=== PATIENT | female | born 1960 | race Caucasian/White ===

== ENCOUNTER 2019-12-03 21:44 | Emergency (ER) | payer MEDICARE, MEDICAID ==
[2019-12-03] MEDS ORDERED: Sodium Chloride 0.9% 1,000 ML IV ONE (21:48)
[2019-12-03] MEDS ORDERED: Acetaminophen 500 MG Tab PO ONE (22:23)
--- NOTE | 2019-12-03 22:37 | CT ---
HISTORY: Confusion. TECHNIQUE: Noncontrast head CT. COMPARISON: No prior. FINDINGS: There is no acute intracranial hemorrhage or acute ischemic infarct. No mass effect or midline shift. No hydrocephalus. No extra-axial collection or hematoma. No acute loss of dailey-white differentiation. Mastoid air cells are clear. Paranasal sinuses are clear. No acute skull fracture. IMPRESSION: No acute intracranial disease. Dictated by Kyle Varghese MD @ 12/03/2019 10:36:57 PM Please note that all CT scans at this facility use dose modulation, iterative reconstruction, and/or weight-based dosing when appropriate to reduce radiation dose to as low as reasonably achievable. Dictated by: Kyle Varghese MD @ 12/03/2019 22:37:01 (Electronically Signed)
[2019-12-03 22:50] LABS: BLOOD UREA NITROGEN,BUN 18 mg/dL (7.0-18.0); CARBON DIOXIDE,CO2 29.6 mmol/L (21.0-32.0); CHLORIDE,CL 101 mmol/L (98-107); GLUCOSE RANDOM 133 mg/dL (74-106); POTASSIUM,K 4.5 mmol/L (3.5-5.1); SODIUM,NA 138 mmol/L (136-145)
[2019-12-03] MEDS ORDERED: Acetaminophen 500 MG Tab ONE (23:12)
--- NOTE | 2019-12-04 00:47 | CR ---
INDICATION: Confusion, shortness of breath TECHNIQUE: Chest radiograph 1 view COMPARISON: None FINDINGS: Severe degradation of image quality noted due to body habitus. Mediastinum: The mediastinum is normal in appearance. The heart silhouette is normal in size and morphology. Lung: Mild nodular opacities are present in the right midlung zone, suspicious for bronchiolitis. No sign of pleural effusion seen. No pneumothorax is identified. Bone and Soft tissue: Unremarkable for age. IMPRESSION: 1. Mild nodular opacities are present in the right midlung zone, suspicious for bronchiolitis. Dictated by Abel Tarango MD @ 12/04/2019 12:45:41 AM Dictated by: Abel Tarango MD @ 12/04/2019 00:45:47 (Electronically Signed)
[2019-12-04] MEDS ORDERED: Doxycycline 100 MG Cap PO ONE (03:13)
--- NOTE | 2019-12-04 03:23 | EDM.PDOC ---
ED HPI GENERAL MEDICAL PROBLEM - General Chief Complaint: General Stated Complaint: EMS Time Seen by Provider: 12/03/19 21:47 Source of Information: Reports: Patient - History of Present Illness INITIAL COMMENTS - FREE TEXT/NARRATIVE: Pt with a pmh of psychiatric issues otherwise no pmh presents with generalized weakness and confusion. Pt also reports intermittent chest congestion. Pt found to be febrile on arrival. Pt arrives AOx4 with no focal weakness. - Related Data Allergies Allergy/AdvReac Type Severity Reaction Status Date / Time No Known Allergies Allergy Verified 12/03/19 21:48 Home Meds: Home Meds ARIPiprazole [Aripiprazole] 15 mg PO BEDTIME 06/01/18 [History] Benztropine [Cogentin] 1 mg PO BEDTIME 06/01/18 [History] Desmopressin 0.1 mg PO BEDTIME 06/01/18 [History] Simvastatin 10 mg PO BEDTIME 06/01/18 [History] Vilazodone Hydrochloride [Viibryd] 40 mg PO DAILY 06/01/18 [History] buPROPion HCl [Wellbutrin Xl] 300 mg PO DAILY 06/01/18 [History] metFORMIN [Glucophage XR] 250 mg PO BIDMEALS 06/01/18 [History] Aspirin [Halfprin] 81 mg PO DAILY 04/05/19 [History] Gabapentin [Neurontin] 300 - 600 mg PO BEDTIME 04/05/19 [History] Multivitamin [Multi-Vitamin Daily] 1 tab PO DAILY 04/05/19 [History] buPROPion [buPROPion XL] 150 mg PO BEDTIME 04/05/19 [History] lamoTRIgine [Lamotrigine] 150 mg PO BID 04/05/19 [History] Acetaminophen [Tylenol Extra Strength] 1,000 mg PO Q6H PRN tablet 04/07/19 [Rx] predniSONE See Taper PO WITHBREAKFAST #12 tablet 04/08/19 [Rx] Past Medical History HEENT History: Reports: Allergic Rhinitis, Other (See Below) Other HEENT History: myopia. astigmatism Cardiovascular History: Reports: High Cholesterol Respiratory History: Reports: Sleep Apnea Other Respiratory History: CPAP @ night Gastrointestinal History: Reports: Chronic Constipation Genitourinary History: Reports: Other (See Below) Other Genitourinary History: urge incontinence. nonorganic enuresis STUDENT LOAN COUNSELOR History: Reports: None Musculoskeletal History: Reports: Back Pain, Chronic, Other (See Below) Other Musculoskeletal History: DJD. tendinitis of right shoulder. left achilles tendinitis. hip pain Neurological History: Reports: Other (See Below) Other Neuro History: memory loss Psychiatric History: Reports: Bipolar, Depression, PTSD, Other (See Below) Other Psychiatric History: Borderline Personality Disorder. Dissociative Identity Disorder. social maladjustment Endocrine/Metabolic History: Reports: Diabetes, Type II, Obesity/BMI 30+ Insulin Pump Model and Account Planner: None Hematologic History: Reports: None Immunologic History: Reports: None Oncologic (Cancer) History: Reports: None Dermatologic History: Reports: None - Infectious Disease History Infectious Disease History: Reports: None - Past Surgical History Head Surgeries/Procedures: Reports: None Social & Family History - Family History Family Medical History: Noncontributory GI: Reports: Cirrhosis Endocrine/Metabolic: Reports: Diabetes, type II - Tobacco Use Smoking Status *Q: Never Smoker - Caffeine Use Caffeine Use: Reports: None - Living Situation & Occupation Living situation: Reports: Single, Alone Occupation: Disabled ED ROS GENERAL - Review of Systems Review Of Systems: See Below Constitutional: Reports: Fever, Chills, Weakness HEENT: Reports: No Symptoms Respiratory: Denies: Shortness of Breath, Wheezing Cardiovascular: Denies: Chest Pain GI/Abdominal: Reports: No Symptoms : Reports: No Symptoms Skin: Reports: No Symptoms Neurological: Reports: Confusion. Denies: Dizziness, Headache ED EXAM, GENERAL - Physical Exam Exam: See Below Exam Limited By: No Limitations General Appearance: Alert, WD/WN, No Apparent Distress Head: Atraumatic, Normocephalic Neck: Supple, Full Range of Motion Respiratory/Chest: Lungs Clear, Normal Breath Sounds, No Accessory Muscle Use Cardiovascular: Regular Rate, Rhythm, No Murmur GI/Abdominal: Soft, Non-Tender, No Distention Neurological: Alert, Oriented, Normal Cognition, No Motor/Sensory Deficits Skin Exam: Warm, Dry, Intact Course - Vital Signs Last Recorded V/S: Last Vital Signs Temp 97.3 F 12/04/19 03:26 Pulse 98 12/04/19 03:26 Resp 18 12/04/19 03:26 BP 125/66 12/04/19 03:26 Pulse Ox 94 L 12/04/19 03:26 - Orders/Labs/Meds Orders: Active Orders 24 hr Category Date Time Status EKG 12 Lead [EKG Documentation Completion] [RC] STAT Care 12/03/19 21:52 Active CULTURE URINE [RM] Stat Lab 12/03/19 23:28 Received Labs: Laboratory Tests 12/03/19 12/03/19 12/03/19 Range/Units 22:06 22:06 23:28 WBC 7.38 (4.0-11.0) K/uL RBC 3.64 L (4.30-5.90) M/uL Hgb 11.1 L (12.0-16.0) g/dL Hct 32.4 L (36.0-46.0) % MCV 89.0 (80.0-98.0) fL MCH 30.5 (27.0-32.0) pg MCHC 34.3 (31.0-37.0) g/dL RDW Std Deviation 43.1 (28.0-62.0) fl RDW Coeff of Jason 13 (11.0-15.0) % Plt Count 98 L (150-400) K/uL MPV 9.30 (7.40-12.00) fL Add Manual Diff YES Neutrophils % (Manual) 69 (48.0-80.0) % Lymphocytes % (Manual) 20 (16.0-40.0) % Monocytes % (Manual) 11 (0.0-15.0) % Nucleated RBC % 0.0 /100WBC Absolute Seg Neuts 5.1 (1.4-5.7) Lymphocytes # (Manual) 1.5 (0.6-2.4) Monocytes # (Manual) 0.8 (0.0-0.8) Nucleated RBCs # 0 K/uL Sodium 138 (136-145) mmol/L Potassium 4.5 (3.5-5.1) mmol/L Chloride 101 (98-107) mmol/L Carbon Dioxide 29.6 (21.0-32.0) mmol/L BUN 18 (7.0-18.0) mg/dL Creatinine 1.4 H (0.6-1.0) mg/dL Est Cr Clr Drug Dosing TNP Estimated GFR (MDRD) 38.2 ml/min Glucose 133 H (74-106) mg/dL Calcium 9.3 (8.5-10.1) mg/dL Total Bilirubin 0.6 (0.2-1.0) mg/dL AST 39 H (15-37) IU/L ALT 47 (14-63) IU/L Alkaline Phosphatase 102 (46-116) U/L Total Protein 7.4 (6.4-8.2) g/dL Albumin 3.4 (3.4-5.0) g/dL Globulin 4.0 (2.6-4.0) g/dL Albumin/Globulin Ratio 0.9 (0.9-1.6) Urine Color YELLOW Urine Appearance CLEAR Urine pH 6.5 (5.0-8.0) Ur Specific Marston <= 1.005 (1.001-1.035) Urine Protein NEGATIVE (NEGATIVE) mg/dL Urine Glucose (UA) NEGATIVE (NEGATIVE) mg/dL Urine Ketones NEGATIVE (NEGATIVE) mg/dL Urine Occult Blood NEGATIVE (NEGATIVE) Urine Nitrite NEGATIVE (NEGATIVE) Urine Bilirubin NEGATIVE (NEGATIVE) Urine Urobilinogen 0.2 (<2.0) EU/dL Ur Leukocyte Esterase TRACE H (NEGATIVE) Urine RBC 0-1 (0-2/HPF) Urine WBC 0-2 (0-5/HPF) Ur Epithelial Cells RARE (NONE-FEW) Urine Bacteria RARE (NEGATIVE) Meds: Medications Discontinued Medications Generic Name Dose Route Start Last Admin Trade Name Gianfrancoq PRN Reason Stop Dose Admin Acetaminophen 1,000 mg 12/03/19 22:23 12/03/19 23:10 Tylenol Extra Strength PO 12/03/19 22:24 1,000 mg ONETIME ONE Administration Acetaminophen Confirm 12/03/19 23:12 12/04/19 00:29 Tylenol Extra Strength Administered 12/03/19 23:13 Not Given Dose 500 mg .ROUTE .STK-MED ONE Doxycycline Hyclate 100 mg 12/04/19 03:13 12/04/19 03:25 Vibramycin PO 12/04/19 03:14 100 mg ONETIME ONE Administration Sodium Chloride 1,000 mls @ 999 mls/hr 12/03/19 21:48 12/03/19 21:57 Normal Saline IV 12/03/19 22:48 999 mls/hr .Bolus ONE Administration - Re-Assessments/Exams Free Text/Narrative Re-Assessment/Exam: 12/04/19 03:19 Pt presents febrile after an episode of generalized weakness and confusion at home. No signs or symptoms or stroke. Source of fever is pulmonary on work up. Remainder of work up unremarkable. Pt feels much improved with ED therapy and is comfortable with discharge. Doxycycline prescribed for bronchitis. Strict return precautions discussed should symptoms worsen or any concerns arise. 12/04/19 09:17 Departure - Departure Time of Disposition: 03:22 Disposition: Home, Self-Care 01 Condition: Good Clinical Impression: Fever, Bronchitis - Discharge Information *PRESCRIPTION DRUG MONITORING PROGRAM REVIEWED*: Not Applicable *COPY OF PRESCRIPTION DRUG MONITORING REPORT IN PATIENT MAGI: Not Applicable Instructions: Upper Respiratory Infection, Adult, [id number], Fever, Adult, [id number] Referrals: PCP,Not In Area [Primary Care Provider] - Forms: ED Department Discharge Additional Instructions: The following information is given to patients seen in the emergency department who are being discharged to home. This information is to outline your options for follow-up care. We provide all patients seen in our emergency department with a follow-up referral. The need for follow-up, as well as the timing and circumstances, are variable depending upon the specifics of your emergency department visit. If you don't have a primary care physician on staff, we will provide you with a referral. We always advise you to contact your personal physician following an emergency department visit to inform them of the circumstance of the visit and for follow-up with them and/or the need for any referrals to a consulting specialist. The emergency department will also refer you to a specialist when appropriate. This referral assures that you have the opportunity for follow-up care with a specialist. All of these measure are taken in an effort to provide you with optimal care, which includes your follow-up. Under all circumstances we always encourage you to contact your private physician who remains a resource for coordinating your care. When calling for follow-up care, please make the office aware that this follow-up is from your recent emergency room visit. If for any reason you are refused follow-up, please contact the [facility] Emergency Department at and asked to speak to the emergency department charge nurse. [facility] [address] [place] [id number] [place] [address] Sepsis Event Note - Evaluation Sepsis Screening Result: No Definite Risk - Focused Exam Vital Signs: Vital Signs Temp Temp Temp Pulse Resp BP Pulse Ox 12/04/19 03:26 97.3 F 98 18 125/66 94 L 12/04/19 02:00 97.6 F 93 18 117/57 L 95 12/04/19 00:38 98.6 F 98.6 F 102 H 104/57 L 93 L 12/03/19 23:10 102 F H 12/03/19 21:45 102.7 F H 108 H 20 133/66 93 L Date Exam was Performed: 12/04/19 Time Exam was Performed: 09:13 - My Orders Last 24 Hours: My Active Orders 12/03/19 21:52 EKG 12 Lead [EKG Documentation Completion] [RC] STAT 12/03/19 23:28 CULTURE URINE [RM] Stat - Assessment/Plan Last 24 Hours: My Active Orders 12/03/19 21:52 EKG 12 Lead [EKG Documentation Completion] [RC] STAT 12/03/19 23:28 CULTURE URINE [RM] Stat
== END 2019-12-04 03:55 | disposition home or self-care (01) ==
LOC: MW.ED 21:44
DX: J40 Bronchitis, not specified as acute or chronic (principal); G47.30 Sleep apnea, unspecified; F31.9 Bipolar disorder, unspecified; E78.00 Pure hypercholesterolemia, unspecified; E11.9 Type 2 diabetes mellitus without complications; E66.9 Obesity, unspecified; Z79.899 Other long term (current) drug therapy; Z79.84 Long term (current) use of oral hypoglycemic drugs; Z79.82 Long term (current) use of aspirin
CPT/HCPCS: 36415; 70450; 71045; 80053; 81001; 85025; 87086; 87804; 93005; 96360; 99285; A9270; J7030; 99283

== ENCOUNTER 2020-08-09 12:23 | Observation (INO) | payer MEDICARE, MEDICAID, OTHER ==
[2020-08-09] MEDS ORDERED: Sodium Chloride 0.9% 2.5 ML Syringe FLUSH PRN (12:58)
[2020-08-09] MEDS ORDERED: Sodium Chloride 0.9% 10 ML Syringe FLUSH PRN (12:58)
--- NOTE | 2020-08-09 13:05 | EDM.PDOC ---
ED HPI GENERAL MEDICAL PROBLEM - General Chief Complaint: Cardiovascular Problem Stated Complaint: NUMBNESS IN LEGS AND BACK Time Seen by Provider: 08/09/20 12:55 Source of Information: Reports: Patient, Old Records - History of Present Illness INITIAL COMMENTS - FREE TEXT/NARRATIVE: There is a very pleasant 60-year-old female with a past medical history of bipolar disorder on lithium, prior suicide attempts, diabetes mellitus, TONIE, hyperlipidemia, borderline personality disorder, panic disorder presenting with syncope and difficulty speaking. She arrives to the emergency department her sister. Her sister insisted that she come to get evaluated because of reports of syncopal episodes last night. Patient cannot remember clearly, but believes that she had a syncopal episode last night at home while trying to get up off the toilet. She cannot remember if she hit her head or not. She states that after experiencing syncope, she laid on the floor all night where she slept. This morning, she was able to get herself up and drive to a convenience store. Her sister was unable to reach her by phone. A family friend brought her to the emergency department where she met her sister. Here in the emergency department, the patient has no complaints at this point. She does appear to have some mild word finding difficulty and some tremors. The sister states that these are new. It is not entirely clear when the word finding difficulty and the tremor started, the patient thinks that he may have started last night but she is not entirely certain. There is no prior history of CVA, TIA, or acute coronary syndrome. There is no reported history of any anticoagulant or antiplatelet medication usage. No history of thyroid disease. No recent change in lithium dosage. ROS: A 10-point review of systems was negative, except as noted in the HPI (or in the ROS section of this note). Past medical history: Reviewed, no additional pertinent history. Surgical history: Reviewed in system, no additional pertinent history. Social history: Reviewed in system, no additional pertinent history. Family history: Reviewed in system, no additional pertinent history. PHYSICAL EXAM Vital signs reviewed. Nursing notes reviewed. Constitutional: Awake, alert, non-distressed. Head: Normocephalic, atraumatic. Eyes: EOMI, conjunctiva normal, no discharge, no scleral icterus. Pupils 3 mm bilaterally. Ears, Nose, Throat: External ears and nose normal, moist oral mucosa. Cardiovascular: 2+ radial pulses bilaterally, capillary refill less than 2 seconds. Pulmonary: normal work of breathing, no accessory muscle use. Abdomen/GI: Soft, nontender, nondistended, no guarding or rigidity, no masses. Musculoskeletal: No deformities. Integumentary: Appropriate color for ethnicity, warm, dry, no pallor or jaundice, no rash. Neurologic: Awake, alert, and oriented x3. Cranial nerves II through XII intact. No facial droop or dysarthria. No temporal artery tenderness. Supple neck with normal range of motion. No pronator drift. Normal [id number] and [id number]. No dysdiadochokinesia. 5/5 strength in all extremities. Sensation intact to light touch x4. Patient does have a mild resting tremor that is worse with intentional movements and also seems to have some mild word finding difficulty. Psychiatric: Appropriate mood and affect, normal thought process. - Related Data Allergies Allergy/AdvReac Type Severity Reaction Status Date / Time No Known Allergies Allergy Verified 08/09/20 12:39 Home Meds: Home Meds Baclofen 1 tab PO TID PRN 08/09/20 [History] DULoxetine [Cymbalta] 120 mg PO BEDTIME 08/09/20 [History] Doxepin [SINEquan] 20 mg PO BEDTIME 08/09/20 [History] Gabapentin [Neurontin] 1 tab PO DAILY 08/09/20 [History] Gabapentin [Neurontin] 2 cap PO BEDTIME 08/09/20 [History] [place] Carbonate 3 cap PO BEDTIME 08/09/20 [History] Simvastatin 1 tab PO BEDTIME 08/09/20 [History] Topiramate 1 tab PO BEDTIME 08/09/20 [History] metFORMIN [Glucophage XR] 250 mg PO DAILY 08/09/20 [History] Past Medical History HEENT History: Reports: Allergic Rhinitis, Other (See Below) Other HEENT History: myopia. astigmatism Cardiovascular History: Reports: High Cholesterol Respiratory History: Reports: Sleep Apnea Other Respiratory History: CPAP @ night Gastrointestinal History: Reports: Chronic Constipation Genitourinary History: Reports: Other (See Below) Other Genitourinary History: urge incontinence. nonorganic enuresis SET UP OPERATOR TOOL History: Reports: None Musculoskeletal History: Reports: Back Pain, Chronic, Other (See Below) Other Musculoskeletal History: DJD. tendinitis of right shoulder. left achilles tendinitis. hip pain Neurological History: Reports: Other (See Below) Other Neuro History: memory loss Psychiatric History: Reports: Bipolar, Depression, PTSD, Other (See Below) Other Psychiatric History: Borderline Personality Disorder. Dissociative Identity Disorder. social maladjustment Endocrine/Metabolic History: Reports: Diabetes, Type II, Obesity/BMI 30+ Insulin Pump Model and Insurance And Benefits Clerk: None Hematologic History: Reports: None Immunologic History: Reports: None Oncologic (Cancer) History: Reports: None Dermatologic History: Reports: None - Infectious Disease History Infectious Disease History: Reports: None - Past Surgical History Head Surgeries/Procedures: Reports: None Social & Family History - Family History Family Medical History: Noncontributory GI: Reports: Cirrhosis Endocrine/Metabolic: Reports: Diabetes, type II - Caffeine Use Caffeine Use: Reports: None - Living Situation & Occupation Living situation: Reports: Single, Alone Occupation: Disabled ED ROS GENERAL - Review of Systems Review Of Systems: See Below ED EXAM, NEURO - Physical Exam Exam: See Below #1 Interpretation EKG Interpretation Comments: 12-Lead ECG Interpretation Acquired: 1:05 PM Rhythm: Sinus rhythm Rate: 65 bpm [place]: Normal Intervals: Normal Ectopy: None RV Strain: No obvious RV strain pattern. ST Segments/T-Waves: No notable changes Acute Ischemic Changes: None apparent Interpretation: No STEMI Course - Vital Signs Text/Narrative:: 60-year-old female with syncope along with new mild word finding difficulty and new tremor. Patient hemodynamically stable, afebrile, well-appearing, looks nontoxic. Differential diagnosis includes but is not limited to: CVA, TIA, cervical artery stenosis, lithium toxicity, electrolyte disturbance, thyroid disease, less likely seizure, intracranial hemorrhage, VESSEL SCRAPPER HELPER tumor malignancy, less likely meningitis or encephalitis, demyelinating disease, and many others. 1:08 PM: Patient has no focal neurologic deficits or lateralizing signs to suggest a stroke. Onset of her symptoms is unknown so she is not a stroke code as she would not receive systemic thrombolysis and has no symptoms to suggest a large vessel occlusion. We will plan for IV access, labs, EKG, angiographic imaging of the head and neck. 2:48 PM: Labs show normal cell lines on CBC, normal INR, normal electrolytes. Creatinine mildly elevated at 1.1. Normal CK. Normal troponin. Normal LFTs and TSH. Awaiting imaging. 3:15 PM: CT imaging appears to show fractures of bridging osteophytes in the cervical spine. We will place the patient in a cervical collar while we are awaiting radiology reads. She is resting comfortably and appears to be speaking more easily. 3:25 PM: Preliminary reads of CTA head and neck are negative. Noncontrast head CT is normal. CT read of cervical spine was read as normal but did not comment on possible fractures of osteophytes of C5-7. Will contact [facility] to discuss with radiologist. 3:28 PM: I spoke with the reading radiologist Dr. Manjeet Martini who believes that this pattern represents old fractures of bridging osteophytes or desmophytes and does not represent any acute injury. Ordered full-dose aspirin. Hospitalist paged. Cervical spine cleared. 4:16 PM: Final reads of the CT angiogram studies of the head and neck showed no acute findings, did note a heterogenous multinodular right lobe of the thyroid gland with areas of calcification but no definite evidence of a thyroid nodule. Given transient word finding difficulties and myoclonic jerks/tremor, patient will need to be admitted to the hospital out of concern for possible TIA. 1 L lactated Ringer's hung. I spoke in person with Dr. Tio Martinez who agrees to admit to observation. Last Recorded V/S: Last Vital Signs Temp 36.2 C 08/09/20 17:23 Pulse 66 08/09/20 17:23 Resp 18 08/09/20 17:23 BP 141/76 H 08/09/20 17:23 Pulse Ox 96 08/09/20 17:23 - Orders/Labs/Meds Orders: Active Orders 24 hr Category Date Time Status Cardiac Monitoring [RC] . DIRECTED Care 08/09/20 12:58 Active EKG Documentation Completion [RC] STAT Care 08/09/20 12:58 Active Pulse Oximetry [RC] ASDIRECTED Care 08/09/20 12:58 Active LITHIUM [REF] Stat Lab 08/09/20 13:22 Received Sodium Chloride 0.9% [Saline Flush] Med 08/09/20 12:58 Active 10 ml FLUSH ASDIRECTED PRN Sodium Chloride 0.9% [Saline Flush] Med 08/09/20 12:58 Active 2.5 ml FLUSH ASDIRECTED PRN Saline Lock Insert [OM.PC] Stat Oth 08/09/20 12:58 Ordered Medication Orders Baclofen (Lioresal) 20 mg PO TID PRN PRN Reason: SPASMS Dextrose/Water (Dextrose 50% In Water) 50 ml IV ASDIRECTED PRN PRN Reason: Hypoglycemia Doxepin HCl (Sinequan) 20 mg PO BEDTIME [facility] Duloxetine HCl (Cymbalta) 120 mg PO BEDTIME [facility] Enoxaparin Sodium (Lovenox) 40 mg SUBCUT Q24H [facility] Gabapentin (Neurontin) 600 mg PO BEDTIME [facility] Glucagon (Glucagen) 1 mg IM ASDIRECTED PRN PRN Reason: Hypoglycemia Insulin Aspart (Novolog) 0 unit SUBCUT TIDAC [facility]; Protocol [place] Carbonate (Eskalith) 300 mg PO BEDTIME [facility] Simvastatin (Zocor) 10 mg PO BEDTIME [facility] Sodium Chloride (Saline Flush) 10 ml FLUSH ASDIRECTED PRN PRN Reason: Keep Vein Open Last Admin: 08/09/20 13:48 Dose: 10 ml Documented by: DAVID Sodium Chloride (Saline Flush) 2.5 ml FLUSH ASDIRECTED PRN PRN Reason: Keep Vein Open Last Admin: 08/09/20 13:48 Dose: 2.5 ml Documented by: IVERKACornell Topiramate (Topamax) 50 mg PO BEDTIME [facility] Labs: Laboratory Tests 08/09/20 08/09/20 08/09/20 Range/Units 13:22 13:22 13:22 WBC 7.91 (4.0-11.0) K/uL RBC 4.70 (4.30-5.90) M/uL Hgb 14.1 (12.0-16.0) g/dL Hct 42.0 (36.0-46.0) % MCV 89.4 (80.0-98.0) fL MCH 30.0 (27.0-32.0) pg MCHC 33.6 (31.0-37.0) g/dL RDW Std Deviation 43.4 (28.0-62.0) fl RDW Coeff of Jason 13 (11.0-15.0) % Plt Count 253 (150-400) K/uL MPV 10.00 (7.40-12.00) fL Neut % (Auto) 66.4 (48.0-80.0) % Lymph % (Auto) 23.3 (16.0-40.0) % [place] % (Auto) 8.6 (0.0-15.0) % Eos % (Auto) 1.3 (0.0-7.0) % Baso % (Auto) 0.4 (0.0-1.5) % Neut # (Auto) 5.3 (1.4-5.7) K/uL Lymph # (Auto) 1.8 (0.6-2.4) K/uL [place] # (Auto) 0.7 (0.0-0.8) K/uL Eos # (Auto) 0.1 (0.0-0.7) K/uL Baso # (Auto) 0.0 (0.0-0.1) K/uL Nucleated RBC % 0.0 /100WBC Nucleated RBCs # 0 K/uL INR 0.98 Sodium 141 (136-145) mmol/L Potassium 3.9 (3.5-5.1) mmol/L Chloride 109 H (98-107) mmol/L Carbon Dioxide 22.0 (21.0-32.0) mmol/L BUN 9 (7.0-18.0) mg/dL Creatinine 1.1 H (0.6-1.0) mg/dL Est Cr Clr Drug Dosing 53.49 mL/min Estimated GFR (MDRD) 50.3 ml/min Glucose 112 H (74-106) mg/dL Calcium 10.2 H (8.5-10.1) mg/dL Total Bilirubin 0.6 (0.2-1.0) mg/dL AST 15 (15-37) IU/L ALT 19 (14-63) IU/L Alkaline Phosphatase 86 (46-116) U/L Creatine Kinase 68 (26-308) U/L Troponin I < 0.050 (0.000-0.056) ng/mL Total Protein 7.4 (6.4-8.2) g/dL Albumin 4.2 (3.4-5.0) g/dL Globulin 3.2 (2.6-4.0) g/dL Albumin/Globulin Ratio 1.3 (0.9-1.6) TSH 3rd Generation 0.60 (0.36-3.74) uIU/mL SARS-CoV-2 RNA (RAYMUNDO) (NEGATIVE) 08/09/20 Range/Units 15:13 WBC (4.0-11.0) K/uL RBC (4.30-5.90) M/uL Hgb (12.0-16.0) g/dL Hct (36.0-46.0) % MCV (80.0-98.0) fL MCH (27.0-32.0) pg MCHC (31.0-37.0) g/dL RDW Std Deviation (28.0-62.0) fl RDW Coeff of Jason (11.0-15.0) % Plt Count (150-400) K/uL MPV (7.40-12.00) fL Neut % (Auto) (48.0-80.0) % Lymph % (Auto) (16.0-40.0) % [place] % (Auto) (0.0-15.0) % Eos % (Auto) (0.0-7.0) % Baso % (Auto) (0.0-1.5) % Neut # (Auto) (1.4-5.7) K/uL Lymph # (Auto) (0.6-2.4) K/uL [place] # (Auto) (0.0-0.8) K/uL Eos # (Auto) (0.0-0.7) K/uL Baso # (Auto) (0.0-0.1) K/uL Nucleated RBC % /100WBC Nucleated RBCs # K/uL INR Sodium (136-145) mmol/L Potassium (3.5-5.1) mmol/L Chloride (98-107) mmol/L Carbon Dioxide (21.0-32.0) mmol/L BUN (7.0-18.0) mg/dL Creatinine (0.6-1.0) mg/dL Est Cr Clr Drug Dosing mL/min Estimated GFR (MDRD) ml/min Glucose (74-106) mg/dL Calcium (8.5-10.1) mg/dL Total Bilirubin (0.2-1.0) mg/dL AST (15-37) IU/L ALT (14-63) IU/L Alkaline Phosphatase (46-116) U/L Creatine Kinase (26-308) U/L Troponin I (0.000-0.056) ng/mL Total Protein (6.4-8.2) g/dL Albumin (3.4-5.0) g/dL Globulin (2.6-4.0) g/dL Albumin/Globulin Ratio (0.9-1.6) TSH 3rd Generation (0.36-3.74) uIU/mL SARS-CoV-2 RNA (RAYMUNDO) NEGATIVE (NEGATIVE) Meds: Medications Generic Name Dose Route Start Last Admin Trade Name Freq PRN Reason Stop Dose Admin Baclofen 20 mg 08/09/20 22:00 Lioresal PO TID PRN SPASMS Dextrose/Water 50 ml 08/09/20 17:26 Dextrose 50% In Water IV ASDIRECTED PRN Hypoglycemia Doxepin HCl 20 mg 08/09/20 21:00 Sinequan PO BEDTIME [facility] Duloxetine HCl 120 mg 08/09/20 21:00 Cymbalta PO BEDTIME [facility] Enoxaparin Sodium 40 mg 08/09/20 17:00 Lovenox SUBCUT Q24H [facility] Gabapentin 600 mg 08/10/20 21:00 Neurontin PO BEDTIME [facility] Glucagon 1 mg 08/09/20 17:26 Glucagen IM ASDIRECTED PRN Hypoglycemia Insulin Aspart 0 unit 08/10/20 07:30 Novolog SUBCUT TIDAC [facility] Protocol [place] Carbonate 300 mg 08/09/20 21:00 Eskalith PO BEDTIME [facility] Simvastatin 10 mg 08/09/20 21:00 Zocor PO BEDTIME [facility] Sodium Chloride 10 ml 08/09/20 12:58 08/09/20 13:48 Saline Flush FLUSH 10 ml ASDIRECTED PRN Administration Keep Vein Open Sodium Chloride 2.5 ml 08/09/20 12:58 08/09/20 13:48 Saline Flush FLUSH 2.5 ml ASDIRECTED PRN Administration Keep Vein Open Topiramate 50 mg 08/09/20 21:00 Topamax PO BEDTIME [facility] Discontinued Medications Generic Name Dose Route Start Last Admin Trade Name Freq PRN Reason Stop Dose Admin Aspirin 324 mg 08/09/20 15:29 08/09/20 16:00 Aspirin PO 08/09/20 15:30 324 mg ONETIME ONE Administration Lactated Ringer's 1,000 mls @ 999 mls/hr 08/09/20 15:37 08/09/20 16:00 Ringers, Lactated IV 08/09/20 16:37 999 mls/hr .BOLUS ONE Administration Non-Formulary Medication 1 tab 08/09/20 17:22 Baclofen [Baclofen] PO TID PRN Pain Departure - Departure Time of Disposition: 16:16 Disposition: Refer to Observation Condition: Good Clinical Impression: Syncope and collapse - Discharge Information Sepsis Event Note (ED) - Evaluation Sepsis Screening Result: No Definite Risk - Focused Exam Vital Signs: Vital Signs Temp Pulse Resp BP Pulse Ox 08/09/20 14:46 59 L 18 114/59 L 95 08/09/20 12:31 35.2 C L 83 18 150/88 H 96 - My Orders Last 24 Hours: My Active Orders 08/09/20 12:58 Cardiac Monitoring [RC] . DIRECTED EKG Documentation Completion [RC] STAT Pulse Oximetry [RC] ASDIRECTED Sodium Chloride 0.9% [Saline Flush] 10 ml FLUSH ASDIRECTED PRN Sodium Chloride 0.9% [Saline Flush] 2.5 ml FLUSH ASDIRECTED PRN Saline Lock Insert [OM.PC] Stat 08/09/20 13:22 LITHIUM [REF] Stat - Assessment/Plan Last 24 Hours: My Active Orders 08/09/20 12:58 Cardiac Monitoring [RC] . DIRECTED EKG Documentation Completion [RC] STAT Pulse Oximetry [RC] ASDIRECTED Sodium Chloride 0.9% [Saline Flush] 10 ml FLUSH ASDIRECTED PRN Sodium Chloride 0.9% [Saline Flush] 2.5 ml FLUSH ASDIRECTED PRN Saline Lock Insert [OM.PC] Stat 08/09/20 13:22 LITHIUM [REF] Stat
[2020-08-09 14:13] LABS: BLOOD UREA NITROGEN,BUN 9 mg/dL (7.0-18.0); CHLORIDE,CL 109 mmol/L (98-107); GLUCOSE RANDOM 112 mg/dL (74-106); POTASSIUM,K 3.9 mmol/L (3.5-5.1); SODIUM,NA 141 mmol/L (136-145)
--- NOTE | 2020-08-09 15:17 | CT ---
INDICATION: New onset tremor in word-finding difficulties COMPARISON: 12/03/2019 TECHNIQUE: CT examination of the head was performed as axial sections without intravenous contrast. Images were obtained from the vertex of the skull through the skull base. Please note that all CT scans at this facility use dose modulation, iterative reconstruction, and/or weight-based dosing when appropriate to reduce radiation dose to as low as reasonably achievable. FINDINGS: The brain shows no sign of mass lesion, mass effect, hemorrhage, or edema. The ventricles and sulci are normal in appearance for the patient`s age. The visualized portions of the orbits are normal in appearance. The osseous structures are normal in their appearance with no sign of abnormality in the skull base or calvarium. IMPRESSION: Normal unenhanced head CT. Please note that all CT scans at this facility use dose modulation, iterative reconstruction, and/or weight-based dosing when appropriate to reduce radiation dose to as low as reasonably achievable. Dictated by Manjeet Martini MD @ Aug 09 2020 3:12PM Signed by Dr. Manjeet Martini @ Aug 09 2020 3:16PM
--- NOTE | 2020-08-09 15:19 | CT ---
INDICATION: Unwitnessed fall COMPARISON: None TECHNIQUE: CT examination of the cervical spine is performed without contrast using spiral technique. Thin axial, sagittal and coronal reconstructions were made. Please note that all CT scans at this facility use dose modulation, iterative reconstruction, and/or weight-based dosing when appropriate to reduce radiation dose to as low as reasonably achievable. FINDINGS: : There is straightening of the spine which is usually due to muscle spasm or positioning. There is no bladder blastic lesion, fracture or dislocation identified. There are moderate degenerative changes mainly in the mid and lower cervical spine. IMPRESSION: Straightening. Degenerative changes. No visible acute fracture, dislocation or destructive process apparent Please note that all CT scans at this facility use dose modulation, iterative reconstruction, and/or weight-based dosing when appropriate to reduce radiation dose to as low as reasonably achievable. Dictated by Mnajeet Martini MD @ Aug 09 2020 3:12PM Signed by Dr. Manjeet Martini @ Aug 09 2020 3:18PM
--- NOTE | 2020-08-09 15:21 | CT ---
DATE: 08/09/2020 CLINICAL HISTORY: Patient with acute onset tremor and word finding difficulty. TECHNIQUE: Standard helical CT image acquisition through the head and neck was performed after intravenous contrast bolus enhancement. Multiplanar reconstructed images were performed and interpreted. COMPARISON: None available. FINDINGS: The origins of the great vessels from the aortic arch are patent. The origin of the right vertebral artery is patent. The origin of the left vertebral artery is patent. The common carotid arteries are patent. There is no stenosis at the origin of the right internal carotid artery. There is no stenosis at the origin of the left internal carotid artery. The rest of the cervical segments of the internal carotid arteries are patent up to their intracranial segments. Note is made tortuous course of the right greater than left internal carotid arteries, with the right internal carotid artery taking a retropharyngeal course approaching the midline. The intracranial segments of the internal carotid arteries are patent, noting atherosclerotic calcification involving the cavernous segments but without resulting hemodynamically significant luminal stenosis. The anterior and middle cerebral arteries are patent. The left vertebral artery is dominant. The cervical segments of the vertebral arteries are patent. The intracranial segments of the vertebral arteries are patent. The basilar trunk and posterior cerebral arteries are patent. There is normal opacification of major intracranial venous structures. The visualized lung apices are unremarkable. Heterogeneous and multinodular right thyroid lobe with areas of punctate calcification but without discrete nodule measuring greater than 15 mm. The soft tissues of the neck are unremarkable. There are degenerative changes in the cervical spine. IMPRESSION: 1. No intracranial proximal large vessel occlusion. 2. Widely patent cervical arterial vasculature with no evidence of hemodynamically significant luminal stenosis. 3. Heterogeneous, multinodular right lobe of the thyroid gland with areas of calcification, as above. There is, however, no definite evidence of a thyroid nodule measuring greater than 15 mm which would prompt recommendation for thyroid ultrasound. Please note that all CT scans at this facility use dose modulation, iterative reconstruction, and/or weight-based dosing when appropriate to reduce radiation dose to as low as reasonably achievable. Dictated by Guzman Alberto MD @ Aug 09 2020 3:48PM Signed by Dr. Guzman Alberto @ Aug 09 2020 4:03PM
[2020-08-09] MEDS ORDERED: Aspirin 81 MG Tab.Chew PO ONE (15:29)
[2020-08-09] MEDS ORDERED: Lactated Ringers 1,000 ML IV ONE (15:37)
[2020-08-09] MEDS ORDERED: BACLOFEN PO PRN (17:22)
[2020-08-09] MEDS ORDERED: Glucagon,Human Recombinant 1 MG Vial IM PRN (17:26)
[2020-08-09] MEDS ORDERED: 50% Dextrose in Water 50 ML Syringe IV PRN (17:26)
[2020-08-09] MEDS: Enoxaparin 40 MG/0.4 ML Syringe SUBCUT SCH (18:40)
--- NOTE | 2020-08-09 19:29 | PCM.HP.2 ---
H&P History of Present Illness - General Date of Service: 08/09/20 Admit Problem/Dx: Admission Diagnosis/Problem Admission Diagnosis/Problem TIA, Transient ischemic attack - History of Present Illness Initial Comments - Free Text/Narative: There is a very pleasant 60-year-old female with a past medical history of bipolar disorder on lithium, prior suicide attempts, diabetes mellitus, TONIE, hyperlipidemia, borderline personality disorder, panic disorder presenting with syncope and difficulty speaking. She arrives to the emergency department her sister. Her sister insisted that she come to get evaluated because of reports of syncopal episodes last night. Patient cannot remember clearly, but believes that she had a syncopal episode last night at home while trying to get up off the toilet. She cannot remember if she hit her head or not. She states that after experiencing syncope, she laid on the floor all night where she slept. This morning, she was able to get herself up and drive to a convenience store. Her sister was unable to reach her by phone. A family friend brought her to the emergency department where she met her sister. Here in the emergency department, the patient has no complaints at this point. She does appear to have some mild word finding difficulty and some tremors. The sister states that these are new. It is not entirely clear when the word finding difficulty and the tremor started, the patient thinks that he may have started last night but she is not entirely certain. There is no prior history of CVA, TIA, or acute coronary syndrome. There is no reported history of any anticoagulant or antiplatelet medication usage. No history of thyroid disease. No recent change in lithium dosage. ROS: A 10-point review of systems was negative, except as noted in the HPI (or in the ROS section of this note). Onset of Symptoms: Reports: Other (yesterday) Worsens with: Reports: None Back Pain Score (Numeric/FACES): 6 - Related Data Allergies/Adverse Reactions: Allergies Allergy/AdvReac Type Severity Reaction Status Date / Time No Known Allergies Allergy Verified 08/09/20 12:39 Home Medications: Home Meds Baclofen 1 tab PO TID PRN 08/09/20 [History] DULoxetine [Cymbalta] 120 mg PO BEDTIME 08/09/20 [History] Doxepin [SINEquan] 20 mg PO BEDTIME 08/09/20 [History] Gabapentin [Neurontin] 1 tab PO DAILY 08/09/20 [History] Gabapentin [Neurontin] 2 cap PO BEDTIME 08/09/20 [History] [place] Carbonate 3 cap PO BEDTIME 08/09/20 [History] Simvastatin 1 tab PO BEDTIME 08/09/20 [History] Topiramate 1 tab PO BEDTIME 08/09/20 [History] metFORMIN [Glucophage XR] 250 mg PO DAILY 08/09/20 [History] Past Medical History HEENT History: Reports: Allergic Rhinitis, Other (See Below) Other HEENT History: myopia. astigmatism Cardiovascular History: Reports: High Cholesterol Respiratory History: Reports: Sleep Apnea Other Respiratory History: CPAP @ night Gastrointestinal History: Reports: Chronic Constipation Genitourinary History: Reports: Other (See Below) Other Genitourinary History: urge incontinence. nonorganic enuresis CORRECTIONAL CLASSIFICATION COUNSELOR History: Reports: None Musculoskeletal History: Reports: Back Pain, Chronic, Other (See Below) Other Musculoskeletal History: DJD. tendinitis of right shoulder. left achilles tendinitis. hip pain Neurological History: Reports: Other (See Below) Other Neuro History: memory loss Psychiatric History: Reports: Bipolar, Depression, PTSD, Other (See Below) Other Psychiatric History: Borderline Personality Disorder. Dissociative Identity Disorder. social maladjustment Endocrine/Metabolic History: Reports: Diabetes, Type II, Obesity/BMI 30+ Insulin Pump Model and Buy Boat Operator: None Hematologic History: Reports: None Immunologic History: Reports: None Oncologic (Cancer) History: Reports: None Dermatologic History: Reports: None - Infectious Disease History Infectious Disease History: Reports: Chicken Pox, Measles, Mumps - Past Surgical History Head Surgeries/Procedures: Reports: None Social & Family History - Family History Family Medical History: Noncontributory GI: Reports: Cirrhosis Endocrine/Metabolic: Reports: Diabetes, type II - Tobacco Use Tobacco Use Status *Q: Never Tobacco User - Caffeine Use Caffeine Use: Reports: Soda - Alcohol Use Days Per Week of Alcohol Use: 0 - Recreational Drug Use Recreational Drug Use: No - Living Situation & Occupation Living situation: Reports: Single, Alone Occupation: Disabled H&P Review of Systems - Review of Systems: Review Of Systems: Comprehensive ROS is negative, except as noted in HPI. Exam - Exam Exam: See Below - Vital Signs Vital Signs: Last Vital Signs Temp 97.2 F 10/22/20 17:23 Pulse 66 08/09/20 17:23 Resp 18 08/09/20 17:23 BP 141/76 H 08/09/20 17:23 Pulse Ox 96 08/09/20 17:23 Weight: 219 lb 3.2 oz - Exam General: Alert, Oriented, Cooperative, Other (some difficulty with recall) HEENT: Conjunctiva Clear, EOMI, Mucosa Moist & Weed, Pupils Equal, Pupils Re active Neck: Supple, Trachea Midline, +2 Carotid Pulse wo Bruit, Full Range of Motion. No: Lymphadenopathy, JVD Lungs: Clear to Auscultation, Normal Respiratory Effort Cardiovascular: Regular Rate, Regular Rhythm, Normal S1, Normal S2 GI/Abdominal Exam: Normal Bowel Sounds, Soft, Non-Tender, No Organomegaly, No Distention, No Abnormal Bruit Extremities: Normal Inspection, Normal Range of Motion, No Pedal Edema, Normal Capillary Refill Peripheral Pulses: 2+: Dorsalis Pedis (L), Dorsalis Pedis (R) Skin: Warm, Dry, Intact Neurological: Cranial Nerves Intact, Reflexes Equal Bilateral, Strength Equal Bilateral, Normal Speech, Normal Tone, Sensation Intact. No: Focal Deficit, Babinski, Reflexes Unequal Neuro Extensive - Mental Status: Alert, Oriented x3, Normal Mood/Affect, Normal Cognition, Memory Loss-Recent Events (difficulty wth recall) Neuro Extensive - Motor, Sensory, Reflexes: CN II-XII Intact, Normal Reflexes, Dysarthria (improved) Psychiatric: Alert, Normal Affect, Normal Mood - Patient Data Lab Results Last 24 hrs: Laboratory Results - last 24 hr 08/09/20 08/09/20 08/09/20 Range/Units 13:22 13:22 13:22 WBC 7.91 (4.0-11.0) K/uL RBC 4.70 (4.30-5.90) M/uL Hgb 14.1 (12.0-16.0) g/dL Hct 42.0 (36.0-46.0) % MCV 89.4 (80.0-98.0) fL MCH 30.0 (27.0-32.0) pg MCHC 33.6 (31.0-37.0) g/dL RDW Std Deviation 43.4 (28.0-62.0) fl RDW Coeff of Jason 13 (11.0-15.0) % Plt Count 253 (150-400) K/uL MPV 10.00 (7.40-12.00) fL Neut % (Auto) 66.4 (48.0-80.0) % Lymph % (Auto) 23.3 (16.0-40.0) % [place] % (Auto) 8.6 (0.0-15.0) % Eos % (Auto) 1.3 (0.0-7.0) % Baso % (Auto) 0.4 (0.0-1.5) % Neut # (Auto) 5.3 (1.4-5.7) K/uL Lymph # (Auto) 1.8 (0.6-2.4) K/uL [place] # (Auto) 0.7 (0.0-0.8) K/uL Eos # (Auto) 0.1 (0.0-0.7) K/uL Baso # (Auto) 0.0 (0.0-0.1) K/uL Nucleated RBC % 0.0 /100WBC Nucleated RBCs # 0 K/uL INR 0.98 Sodium 141 (136-145) mmol/L Potassium 3.9 (3.5-5.1) mmol/L Chloride 109 H (98-107) mmol/L Carbon Dioxide 22.0 (21.0-32.0) mmol/L BUN 9 (7.0-18.0) mg/dL Creatinine 1.1 H (0.6-1.0) mg/dL Est Cr Clr Drug Dosing 53.49 mL/min Estimated GFR (MDRD) 50.3 ml/min Glucose 112 H (74-106) mg/dL POC Glucose (60-110) mg/dL Calcium 10.2 H (8.5-10.1) mg/dL Total Bilirubin 0.6 (0.2-1.0) mg/dL AST 15 (15-37) IU/L ALT 19 (14-63) IU/L Alkaline Phosphatase 86 (46-116) U/L Creatine Kinase 68 (26-308) U/L Troponin I < 0.050 (0.000-0.056) ng/mL Total Protein 7.4 (6.4-8.2) g/dL Albumin 4.2 (3.4-5.0) g/dL Globulin 3.2 (2.6-4.0) g/dL Albumin/Globulin Ratio 1.3 (0.9-1.6) TSH 3rd Generation 0.60 (0.36-3.74) uIU/mL SARS-CoV-2 RNA (RAYMUNDO) (NEGATIVE) 08/09/20 08/09/20 Range/Units 15:13 18:55 WBC (4.0-11.0) K/uL RBC (4.30-5.90) M/uL Hgb (12.0-16.0) g/dL Hct (36.0-46.0) % MCV (80.0-98.0) fL MCH (27.0-32.0) pg MCHC (31.0-37.0) g/dL RDW Std Deviation (28.0-62.0) fl RDW Coeff of Jason (11.0-15.0) % Plt Count (150-400) K/uL MPV (7.40-12.00) fL Neut % (Auto) (48.0-80.0) % Lymph % (Auto) (16.0-40.0) % [place] % (Auto) (0.0-15.0) % Eos % (Auto) (0.0-7.0) % Baso % (Auto) (0.0-1.5) % Neut # (Auto) (1.4-5.7) K/uL Lymph # (Auto) (0.6-2.4) K/uL [place] # (Auto) (0.0-0.8) K/uL Eos # (Auto) (0.0-0.7) K/uL Baso # (Auto) (0.0-0.1) K/uL Nucleated RBC % /100WBC Nucleated RBCs # K/uL INR Sodium (136-145) mmol/L Potassium (3.5-5.1) mmol/L Chloride (98-107) mmol/L Carbon Dioxide (21.0-32.0) mmol/L BUN (7.0-18.0) mg/dL Creatinine (0.6-1.0) mg/dL Est Cr Clr Drug Dosing mL/min Estimated GFR (MDRD) ml/min Glucose (74-106) mg/dL POC Glucose 138 H (60-110) mg/dL Calcium (8.5-10.1) mg/dL Total Bilirubin (0.2-1.0) mg/dL AST (15-37) IU/L ALT (14-63) IU/L Alkaline Phosphatase (46-116) U/L Creatine Kinase (26-308) U/L Troponin I (0.000-0.056) ng/mL Total Protein (6.4-8.2) g/dL Albumin (3.4-5.0) g/dL Globulin (2.6-4.0) g/dL Albumin/Globulin Ratio (0.9-1.6) TSH 3rd Generation (0.36-3.74) uIU/mL SARS-CoV-2 RNA (RAYMUNDO) NEGATIVE (NEGATIVE) Result Diagrams: 08/09/20 13:22 08/09/20 13:22 Sepsis Event Note - Evaluation Sepsis Screening Result: No Definite Risk - Focused Exam Vital Signs: Vital Signs Temp Pulse Resp BP Pulse Ox 08/09/20 17:23 97.2 F 66 18 141/76 H 96 08/09/20 16:33 61 18 125/60 97 08/09/20 14:46 59 L 18 114/59 L 95 08/09/20 12:31 95.3 F L 83 18 150/88 H 96 - Problem List (1) Syncope and collapse SNOMED Code(s): 194099173 ICD Code: R55 - SYNCOPE AND COLLAPSE Status: Acute Current Visit: Yes (2) Confusion SNOMED Code(s): 209249708 ICD Code: R41.0 - DISORIENTATION, UNSPECIFIED Status: Acute Priority: High Current Visit: Yes (3) TIA (transient ischemic attack) SNOMED Code(s): 550842700 ICD Code: G45.9 - TRANSIENT CEREBRAL ISCHEMIC ATTACK, UNSPECIFIED Status: Acute Current Visit: Yes Problem List Initiated/Reviewed/Updated: Yes Orders Last 24hrs: Active Orders 24 hr Category Date Time Status Admission Status [Patient Status] [ADT] Stat ADT 08/09/20 15:36 Active Blood Glucose Check, Bedside [RC] TIDMEALS Care 08/09/20 16:59 Active Cardiac Monitoring [RC] . DIRECTED Care 08/09/20 12:58 Active EKG Documentation Completion [RC] STAT Care 08/09/20 12:58 Active Neuro Check [RC] Q4HR Care 08/09/20 17:30 Active Oxygen Therapy [RC] PRN Care 08/09/20 16:54 Active Pulse Oximetry [RC] ASDIRECTED Care 08/09/20 12:58 Active Telemetry Monitoring [Cardiac Monitoring] [RC] . Care 08/09/20 17:30 Active DIRECTED Up With Assistance [RC] ASDIRECTED Care 08/09/20 16:59 Active VTE/DVT Education [RC] PER UNIT ROUTINE Care 08/09/20 16:54 Active Vital Signs [RC] Q4H Care 08/09/20 16:54 Active [employer] Diet [DIET] Diet 08/09/20 Dinner Active Brain w wo Cont [MR] Urgent Exams 08/09/20 17:28 Ordered CBC WITH AUTO DIFF [HEME] AM Lab 08/10/20 05:11 Ordered CBC WITH AUTO DIFF [HEME] AM Lab 08/11/20 05:11 Ordered COMPREHENSIVE METABOLIC PN,CMP [CHEM] AM Lab 08/10/20 05:11 Ordered COMPREHENSIVE METABOLIC PN,CMP [CHEM] AM Lab 08/11/20 05:11 Ordered LITHIUM [REF] Stat Lab 08/09/20 13:22 Received Baclofen [Lioresal] Med 08/09/20 22:00 Active 20 mg PO TID PRN DULoxetine [Cymbalta] Med 08/09/20 21:00 Active 120 mg PO BEDTIME Dextrose 50% in Water Med 08/09/20 17:26 Active 50 ml IV ASDIRECTED PRN Doxepin [SINEquan] Med 08/09/20 21:00 Active 20 mg PO BEDTIME Enoxaparin [Lovenox] Med 08/09/20 17:00 Active 40 mg SUBCUT Q24H Gabapentin [Neurontin] Med 08/10/20 21:00 Active 600 mg PO BEDTIME Glucagon,Human Recombinant [GlucaGen] Med 08/09/20 17:26 Active 1 mg IM ASDIRECTED PRN Insulin Aspart [NovoLOG] Med 08/10/20 07:30 Active See Protocol SUBCUT TIDAC [place] Carbonate [Eskalith] Med 08/09/20 21:00 Active 300 mg PO BEDTIME Simvastatin [Zocor] Med 08/09/20 21:00 Active 10 mg PO BEDTIME Sodium Chloride 0.9% [Saline Flush] Med 08/09/20 12:58 Active 10 ml FLUSH ASDIRECTED PRN Sodium Chloride 0.9% [Saline Flush] Med 08/09/20 12:58 Active 2.5 ml FLUSH ASDIRECTED PRN Topiramate [Topamax] Med 08/09/20 21:00 Active 50 mg PO BEDTIME Saline Lock Insert [OM.PC] Stat Oth 08/09/20 12:58 Ordered Resuscitation Status Routine Resus Stat 08/09/20 16:54 Ordered Medication Orders Baclofen (Lioresal) 20 mg PO TID PRN PRN Reason: SPASMS Dextrose/Water (Dextrose 50% In Water) 50 ml IV ASDIRECTED PRN PRN Reason: Hypoglycemia Doxepin HCl (Sinequan) 20 mg PO BEDTIME TREVIN Duloxetine HCl (Cymbalta) 120 mg PO BEDTIME TREVIN Enoxaparin Sodium (Lovenox) 40 mg SUBCUT Q24H TREVIN Last Admin: 08/09/20 18:40 Dose: 40 mg Documented by: PROFLUC Gabapentin (Neurontin) 600 mg PO BEDTIME TREVIN Glucagon (Glucagen) 1 mg IM ASDIRECTED PRN PRN Reason: Hypoglycemia Insulin Aspart (Novolog) 0 unit SUBCUT TIDAC TREVIN; Protocol [place] Carbonate (Eskalith) 300 mg PO BEDTIME TREVIN Simvastatin (Zocor) 10 mg PO BEDTIME TREVIN Sodium Chloride (Saline Flush) 10 ml FLUSH ASDIRECTED PRN PRN Reason: Keep Vein Open Last Admin: 08/09/20 13:48 Dose: 10 ml Documented by: [email or web address] Sodium Chloride (Saline Flush) 2.5 ml FLUSH ASDIRECTED PRN PRN Reason: Keep Vein Open Last Admin: 08/09/20 13:48 Dose: 2.5 ml Documented by: IVERKACornell Topiramate (Topamax) 50 mg PO BEDTIME TREVIN Assessment/Plan Comment:: Pt is a 60 y/o F admitted for multiple recent syncopal episodes, with difficulty with recall, some tremor on admission. Workup for TIA, all imaging studies were negative: 1.TIA: all neg imaging studies, MRI w/wout contrast pending. Full dose aspirin, on statin. 2. Syncope-Tele, Q4 neuro checks 3.PHMHx of DM, held metformin, QAC accu checks, with SSI
[2020-08-09] MEDS ORDERED: Iopamidol 755 MG/ML 500 ML Multipack Bottle IVPUSH STA (19:40)
[2020-08-09] MEDS ORDERED: Topiramate 50 MG Tab PO SCH (21:00)
[2020-08-09] MEDS ORDERED: Gabapentin 300 MG Cap PO SCH (21:00)
[2020-08-09] MEDS ORDERED: Doxepin 10 MG Cap PO SCH (21:00)
[2020-08-09] MEDS ORDERED: Simvastatin 10 MG Tab PO SCH (21:00)
[2020-08-09] MEDS ORDERED: Lithium Carbonate 300 MG Cap PO SCH (21:00)
[2020-08-09] MEDS ORDERED: DULoxetine 60 MG Cap PO SCH (21:00)
[2020-08-09] MEDS ORDERED: Gabapentin 300 MG Cap PO ONE (21:15)
[2020-08-09] MEDS ORDERED: Baclofen 10 MG Tab PO PRN (22:00)
[2020-08-10 06:39] LABS: CARBON DIOXIDE,CO2 25.4 mmol/L (21.0-32.0); POTASSIUM,K 4.1 mmol/L (3.5-5.1)
[2020-08-10] MEDS: Insulin Aspart 100 Units/ML 3 ML Pen SUBCUT SCH ×2 (08:00→12:58)
[2020-08-10] MEDS ORDERED: Gadobenate Dimeglumine 529 MG/ML 20 ML SDV IVPUSH STA (08:26)
--- NOTE | 2020-08-10 09:37 | MR ---
INDICATION: Transient ischemic attack. TECHNIQUE: Volumetric T1 weighted sequences before and after infusion of gadolinium contrast, axial FLAIR T2 susceptibility weighted and diffusion weighted images of the brain. COMPARISON: CT scans of the brain most recently 08/09/2020. FINDINGS: Lateral, 3rd and 4th ventricles normal in size and shape. There are no areas of diffusion restriction. No evidence of acute ischemic infarction. No evidence of intracranial hemorrhage no mass effect. No periventricular white matter lesions. No enhancing intra-axial or extra-axial lesion. The brainstem and cerebellum appear normal. The orbits, sella turcica, paranasal sinuses and skullbase are unremarkable. IMPRESSION: Negative MRI brain with and without contrast. No evidence of acute infarction, intracranial hemorrhage, mass or enhancing lesion. Dictated by Vladimir Strong MD @ Aug 10 2020 9:26AM Signed by Dr. Vladimir Strong @ Aug 10 2020 9:35AM
--- NOTE | 2020-08-10 13:06 | PCM.CONS ---
H&P History of Present Illness - General Date of Service: 08/10/20 Admit Problem/Dx: Admission Diagnosis/Problem Admission Diagnosis/Problem TIA, Transient ischemic attack - History of Present Illness Initial Comments - Free Text/Narative: The day before last, she had just come home when she went to bathroom, and when she got up, she passed out. She got up from the floor and walked to the living room and passed out again. She thinks she was out only briefly for these episodes. She then walked to the bedroom and passed in the door. She woke up at 11 am the next morning. She had no phone, so she drove the short distance to [place] and had them call her sister who had a friend pick her up and bring her to the ED. She recallsfeeling disoriented during this time and had mild word finding difficulty. No headaches, muscle soreness, injury. She denies tongue biting or incontinence. She had no warning prior to spells. No dizziness, cp, dyspnea, vision changes. Her back hurts, but this has been going on for 3 months. Medications include gabapentin, Greentop, duloxetine and Baclofen. She notes that she is very consistent with her medications and didnt miss / take extra medications recently. She recently had diarrhea for 2 days, otherwise no recent illness. She had ECT in May. No history of seizures. No ETOH. . Back Pain Score (Numeric/FACES): 6 - Related Data Allergies/Adverse Reactions: Allergies Allergy/AdvReac Type Severity Reaction Status Date / Time No Known Allergies Allergy Verified 08/09/20 12:39 Home Medications: Home Meds Baclofen 1 tab PO TID PRN 08/09/20 [History] DULoxetine [Cymbalta] 120 mg PO BEDTIME 08/09/20 [History] Doxepin [SINEquan] 20 mg PO BEDTIME 08/09/20 [History] Gabapentin [Neurontin] 1 tab PO DAILY 08/09/20 [History] Gabapentin [Neurontin] 2 cap PO BEDTIME 08/09/20 [History] Greentop Carbonate 3 cap PO BEDTIME 08/09/20 [History] Simvastatin 1 tab PO BEDTIME 08/09/20 [History] Topiramate 1 tab PO BEDTIME 08/09/20 [History] metFORMIN [Glucophage XR] 250 mg PO DAILY 08/09/20 [History] Past Medical History HEENT History: Reports: Allergic Rhinitis, Other (See Below) Other HEENT History: myopia. astigmatism Cardiovascular History: Reports: High Cholesterol Respiratory History: Reports: Sleep Apnea Other Respiratory History: CPAP @ night Gastrointestinal History: Reports: Chronic Constipation Genitourinary History: Reports: Other (See Below) Other Genitourinary History: urge incontinence. 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 tendinitis of right shoulder. left achilles tendinitis. hip pain Neurological History: Reports: Other (See Below) Other Neuro History: memory loss Psychiatric History: Reports: Bipolar, Depression, PTSD, Other (See Below) Other Psychiatric History: Borderline Personality Disorder. Dissociative Identity Disorder. 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 Hematologic History: Reports: None Immunologic History: Reports: None Oncologic (Cancer) History: Reports: None Dermatologic History: Reports: None - Infectious Disease History Infectious Disease History: Reports: Chicken Pox, Measles, Mumps - Past Surgical History Head Surgeries/Procedures: Reports: None Social & Family History - Family History Family Medical History: Noncontributory GI: Reports: Cirrhosis Endocrine/Metabolic: Reports: Diabetes, type II - Tobacco Use Tobacco Use Status *Q: Never Tobacco User - Caffeine Use Caffeine Use: Reports: Soda - Alcohol Use Days Per Week of Alcohol Use: 0 - Recreational Drug Use Recreational Drug Use: No - Living Situation & Occupation Living situation: Reports: Single, Alone Occupation: Disabled H&P Review of Systems - Review of Systems: Review Of Systems: Comprehensive ROS is negative, except as noted in HPI. Exam - Exam Exam: See Below - Vital Signs Vital Signs: Last Vital Signs Temp 36.6 C 08/10/20 08:00 Pulse 56 L 08/10/20 08:00 Resp 16 08/10/20 08:00 BP 94/64 08/10/20 08:00 Pulse Ox 95 08/10/20 08:00 Weight: 99.427 kg - Exam Physical Exam Comments:: Constitutional: No acute distress Psychiatric: Mood/Affect: normal/appropriate Neurological: Mental Status: General: Normal activity, good hygiene, appropriate appearance. Level of consciousness: Awake, alert. Orientation: Oriented to person, place, time and situation. Concentration/Attention Span: Normal. Comprehension/Praxis: Able to perform a three step command. Language: Fluent and articulate without evidence of aphasia or dysarthria. Cranial Nerves: Pupils equally round and reactive to light. Visual negro full to confrontation. Gaze conjugate, EOMI. Sensation intact and symmetric to light touch. Facial strength is full and symmetric. Palate elevates symmetrically. Normal shrug bilaterally. Tongue protrudes midline Motor: Normal tone in all groups. No drift. Right hip flexors weak and associated with back pain. Otherwise power is 5/5 throughout proximal and distal muscles. Sensation: Sensation is intact temp Deep tendon reflexes: Normoactive throughout. Toes downgoing. Coordination: Finger to nose intact, heel to barry slow on the right. Asterixis noted with wrists extended to 90 degrees. Gait: Wide based gait. Musculoskeletal: non tender Skin: no visible rash MRI brain w contrast normal CTA head and neck negative for stenosis. - Patient Data Lab Results Last 24 hrs: Laboratory Results - last 24 hr 08/09/20 08/09/20 08/09/20 Range/Units 13:22 13:22 13:22 WBC 7.91 (4.0-11.0) K/uL RBC 4.70 (4.30-5.90) M/uL Hgb 14.1 (12.0-16.0) g/dL Hct 42.0 (36.0-46.0) % MCV 89.4 (80.0-98.0) fL MCH 30.0 (27.0-32.0) pg MCHC 33.6 (31.0-37.0) g/dL RDW Std Deviation 43.4 (28.0-62.0) fl RDW Coeff of Jason 13 (11.0-15.0) % Plt Count 253 (150-400) K/uL MPV 10.00 (7.40-12.00) fL Neut % (Auto) 66.4 (48.0-80.0) % Lymph % (Auto) 23.3 (16.0-40.0) % Will % (Auto) 8.6 (0.0-15.0) % Eos % (Auto) 1.3 (0.0-7.0) % Baso % (Auto) 0.4 (0.0-1.5) % Neut # (Auto) 5.3 (1.4-5.7) K/uL Lymph # (Auto) 1.8 (0.6-2.4) K/uL Will # (Auto) 0.7 (0.0-0.8) K/uL Eos # (Auto) 0.1 (0.0-0.7) K/uL Baso # (Auto) 0.0 (0.0-0.1) K/uL Nucleated RBC % 0.0 /100WBC Nucleated RBCs # 0 K/uL INR 0.98 Sodium 141 (136-145) mmol/L Potassium 3.9 (3.5-5.1) mmol/L Chloride 109 H (98-107) mmol/L Carbon Dioxide 22.0 (21.0-32.0) mmol/L BUN 9 (7.0-18.0) mg/dL Creatinine 1.1 H (0.6-1.0) mg/dL Est Cr Clr Drug Dosing 53.49 mL/min Estimated GFR (MDRD) 50.3 ml/min Glucose 112 H (74-106) mg/dL POC Glucose (60-110) mg/dL Calcium 10.2 H (8.5-10.1) mg/dL Total Bilirubin 0.6 (0.2-1.0) mg/dL AST 15 (15-37) IU/L ALT 19 (14-63) IU/L Alkaline Phosphatase 86 (46-116) U/L Creatine Kinase 68 (26-308) U/L Troponin I < 0.050 (0.000-0.056) ng/mL Total Protein 7.4 (6.4-8.2) g/dL Albumin 4.2 (3.4-5.0) g/dL Globulin 3.2 (2.6-4.0) g/dL Albumin/Globulin Ratio 1.3 (0.9-1.6) TSH 3rd Generation 0.60 (0.36-3.74) uIU/mL Greentop (0.60-1.20) mEq/L SARS-CoV-2 RNA (RAYMUNDO) (NEGATIVE) 08/09/20 08/09/20 08/09/20 Range/Units 13:22 15:13 18:55 WBC (4.0-11.0) K/uL RBC (4.30-5.90) M/uL Hgb (12.0-16.0) g/dL Hct (36.0-46.0) % MCV (80.0-98.0) fL MCH (27.0-32.0) pg MCHC (31.0-37.0) g/dL RDW Std Deviation (28.0-62.0) fl RDW Coeff of Jason (11.0-15.0) % Plt Count (150-400) K/uL MPV (7.40-12.00) fL Neut % (Auto) (48.0-80.0) % Lymph % (Auto) (16.0-40.0) % Will % (Auto) (0.0-15.0) % Eos % (Auto) (0.0-7.0) % Baso % (Auto) (0.0-1.5) % Neut # (Auto) (1.4-5.7) K/uL Lymph # (Auto) (0.6-2.4) K/uL Will # (Auto) (0.0-0.8) K/uL Eos # (Auto) (0.0-0.7) K/uL Baso # (Auto) (0.0-0.1) K/uL Nucleated RBC % /100WBC Nucleated RBCs # K/uL INR Sodium (136-145) mmol/L Potassium (3.5-5.1) mmol/L Chloride (98-107) mmol/L Carbon Dioxide (21.0-32.0) mmol/L BUN (7.0-18.0) mg/dL Creatinine (0.6-1.0) mg/dL Est Cr Clr Drug Dosing mL/min Estimated GFR (MDRD) ml/min Glucose (74-106) mg/dL POC Glucose 138 H (60-110) mg/dL Calcium (8.5-10.1) mg/dL Total Bilirubin (0.2-1.0) mg/dL AST (15-37) IU/L ALT (14-63) IU/L Alkaline Phosphatase (46-116) U/L Creatine Kinase (26-308) U/L Troponin I (0.000-0.056) ng/mL Total Protein (6.4-8.2) g/dL Albumin (3.4-5.0) g/dL Globulin (2.6-4.0) g/dL Albumin/Globulin Ratio (0.9-1.6) TSH 3rd Generation (0.36-3.74) uIU/mL Greentop 0.90 (0.60-1.20) mEq/L SARS-CoV-2 RNA (RAYMUNDO) NEGATIVE (NEGATIVE) 08/10/20 08/10/20 08/10/20 Range/Units 05:31 05:31 06:03 WBC 6.43 (4.0-11.0) K/uL RBC 4.68 (4.30-5.90) M/uL Hgb 13.8 (12.0-16.0) g/dL Hct 42.2 (36.0-46.0) % MCV 90.2 (80.0-98.0) fL MCH 29.5 (27.0-32.0) pg MCHC 32.7 (31.0-37.0) g/dL RDW Std Deviation 44.7 (28.0-62.0) fl RDW Coeff of Jason 14 (11.0-15.0) % Plt Count 263 (150-400) K/uL MPV 10.30 (7.40-12.00) fL Neut % (Auto) 47.7 L (48.0-80.0) % Lymph % (Auto) 41.1 H (16.0-40.0) % Will % (Auto) 8.1 (0.0-15.0) % Eos % (Auto) 2.6 (0.0-7.0) % Baso % (Auto) 0.5 (0.0-1.5) % Neut # (Auto) 3.1 (1.4-5.7) K/uL Lymph # (Auto) 2.6 H (0.6-2.4) K/uL Will # (Auto) 0.5 (0.0-0.8) K/uL Eos # (Auto) 0.2 (0.0-0.7) K/uL Baso # (Auto) 0.0 (0.0-0.1) K/uL Nucleated RBC % 0.0 /100WBC Nucleated RBCs # 0 K/uL INR Sodium 142 (136-145) mmol/L Potassium 4.1 (3.5-5.1) mmol/L Chloride 109 H (98-107) mmol/L Carbon Dioxide 25.4 (21.0-32.0) mmol/L BUN 7 (7.0-18.0) mg/dL Creatinine 1.0 (0.6-1.0) mg/dL Est Cr Clr Drug Dosing 46.13 mL/min Estimated GFR (MDRD) 56.2 ml/min Glucose 92 (74-106) mg/dL POC Glucose 89 (60-110) mg/dL Calcium 9.7 (8.5-10.1) mg/dL Total Bilirubin 0.6 (0.2-1.0) mg/dL AST 13 L (15-37) IU/L ALT 15 (14-63) IU/L Alkaline Phosphatase 77 (46-116) U/L Creatine Kinase (26-308) U/L Troponin I (0.000-0.056) ng/mL Total Protein 6.7 (6.4-8.2) g/dL Albumin 3.7 (3.4-5.0) g/dL Globulin 3.0 (2.6-4.0) g/dL Albumin/Globulin Ratio 1.2 (0.9-1.6) TSH 3rd Generation (0.36-3.74) uIU/mL Greentop (0.60-1.20) mEq/L SARS-CoV-2 RNA (RAYMUNDO) (NEGATIVE) 08/10/20 Range/Units 11:29 WBC (4.0-11.0) K/uL RBC (4.30-5.90) M/uL Hgb (12.0-16.0) g/dL Hct (36.0-46.0) % MCV (80.0-98.0) fL MCH (27.0-32.0) pg MCHC (31.0-37.0) g/dL RDW Std Deviation (28.0-62.0) fl RDW Coeff of Jason (11.0-15.0) % Plt Count (150-400) K/uL MPV (7.40-12.00) fL Neut % (Auto) (48.0-80.0) % Lymph % (Auto) (16.0-40.0) % Will % (Auto) (0.0-15.0) % Eos % (Auto) (0.0-7.0) % Baso % (Auto) (0.0-1.5) % Neut # (Auto) (1.4-5.7) K/uL Lymph # (Auto) (0.6-2.4) K/uL Will # (Auto) (0.0-0.8) K/uL Eos # (Auto) (0.0-0.7) K/uL Baso # (Auto) (0.0-0.1) K/uL Nucleated RBC % /100WBC Nucleated RBCs # K/uL INR Sodium (136-145) mmol/L Potassium (3.5-5.1) mmol/L Chloride (98-107) mmol/L Carbon Dioxide (21.0-32.0) mmol/L BUN (7.0-18.0) mg/dL Creatinine (0.6-1.0) mg/dL Est Cr Clr Drug Dosing mL/min Estimated GFR (MDRD) ml/min Glucose (74-106) mg/dL POC Glucose 135 H (60-110) mg/dL Calcium (8.5-10.1) mg/dL Total Bilirubin (0.2-1.0) mg/dL AST (15-37) IU/L ALT (14-63) IU/L Alkaline Phosphatase (46-116) U/L Creatine Kinase (26-308) U/L Troponin I (0.000-0.056) ng/mL Total Protein (6.4-8.2) g/dL Albumin (3.4-5.0) g/dL Globulin (2.6-4.0) g/dL Albumin/Globulin Ratio (0.9-1.6) TSH 3rd Generation (0.36-3.74) uIU/mL Greentop (0.60-1.20) mEq/L SARS-CoV-2 RNA (RAYMUNDO) (NEGATIVE) Result Diagrams: 08/10/20 05:31 08/10/20 05:31 Sepsis Event Note - Evaluation Sepsis Screening Result: No Definite Risk - Focused Exam Vital Signs: Vital Signs Temp Pulse Resp BP Pulse Ox 08/10/20 08:00 36.6 C 56 L 16 94/64 95 08/10/20 04:15 36.2 C 58 L 16 102/61 97 Consult PN Assessment/Plan Procedures: Procedures ASSAY OF CK (CPK) (04/05/19) ASSAY OF LACTIC ACID (04/18/20) ASSAY OF LITHIUM (04/18/20) ASSAY OF MAGNESIUM (04/18/20) ASSAY OF PHOSPHORUS (06/01/18) ASSAY OF TROPONIN QUANT (04/18/20) BLOOD GASES ANY COMBINATION (04/18/20) C-REACTIVE PROTEIN (04/18/20) COMPLETE CBC W/AUTO DIFF WBC (04/18/20) COMPREHEN METABOLIC PANEL (04/18/20) CRITICAL CARE FIRST HOUR (04/18/20) CT HEAD/BRAIN W/O DYE (04/18/20) CT LUMBAR SPINE W/O DYE (05/12/19) CT PELVIS W/O DYE (05/12/19) DRUG SCREEN JUDY LAMOTRIGINE (04/18/20) DRUG TEST PRSMV CHEM ANLYZR (04/18/20) DRUG TEST PRSMV DIR OPT OBS (04/18/20) ELECTROCARDIOGRAM REPORT (04/18/20) ELECTROCARDIOGRAM TRACING (04/18/20) EMERGENCY DEPT VISIT (04/18/20) EMERGENCY DEPT VISIT (03/09/20) EMERGENCY DEPT VISIT (03/09/20) EMERGENCY DEPT VISIT (05/12/19) EMERGENCY DEPT VISIT (08/24/18) FIBRIN DEGRADATION QUANT (06/01/18) GAIT TRAINING THERAPY (04/05/19) GLUCOSE BLOOD TEST (04/05/19) HYDRATE IV INFUSION ADD-ON (04/05/19) HYDRATION IV INFUSION INIT (12/03/19) INFLUENZA ASSAY W/OPTIC (12/03/19) INSERT EMERGENCY AIRWAY (04/18/20) INSERT TEMP BLADDER CATH (04/18/20) MANUAL THERAPY 1/> REGIONS (01/16/20) MECHANICAL TRACTION THERAPY (07/01/18) MOTION FLUOROSCOPY/SWALLOW (03/07/16) MRI JNT OF LWR EXTRE W/O DYE (05/16/19) NASAL/OROGASTRIC W/TUBE PLMT (04/18/20) ORAL FUNCTION THERAPY (03/07/16) PROTHROMBIN TIME (04/18/20) PT EVAL LOW COMPLEX 20 MIN (01/16/20) RBC SED RATE AUTOMATED (05/12/19) ROUTINE VENIPUNCTURE (04/18/20) THER/PROPH/DIAG INJ IV PUSH (05/12/19) THER/PROPH/DIAG INJ SC/IM (03/09/20) THER/PROPH/DIAG IV INF INIT (04/18/20) THERAPEUTIC EXERCISES (03/07/20) THROMBOPLASTIN TIME PARTIAL (04/18/20) TX/PRO/DX INJ NEW DRUG ADDON (05/12/19) ULTRASOUND THERAPY (03/07/20) URINALYSIS AUTO W/O SCOPE (03/09/20) URINALYSIS AUTO W/SCOPE (04/18/20) URINE CULTURE/COLONY COUNT (12/03/19) URINE TEST (04/18/20) X-RAY EXAM CHEST 1 VIEW (12/03/19) X-RAY EXAM HIP UNI 2-3 VIEWS (04/05/19) X-RAY EXAM L-S SPINE 2/3 VWS (08/23/18) X-RAY EXAM THORAC SPINE 2VWS (08/23/18) X-RAY XM SWLNG FUNCJ C+ (03/07/16) (1) Syncope and collapse SNOMED Code(s): 220313548 Code(s): R55 - SYNCOPE AND COLLAPSE Current Visit: Yes Assessment:: Loss of consciousness X 3: Episodes unwitnessed, syncope vs. seizure. No incontinence/tongue biting, evidence of trauma, but she was confused raising possibility of seizure. -TTE, zio patch to eval for cardiac etiology for syncope -Consider EEG, may need to be done outpatient Altered mental status, bilateral tremor: Ddx toxic metabolic, hypoxic, post- ictal, concussion (no reported head injury). Mild word finding difficulty was noted, but also disoriented suggesting encephalopathy more than focal aphasia. Bilateral tremor indicates systemic process over focal ischemia as well. She seems to be near if not back to normal baseline, but examination notable for asterixis favoring toxic-metabolic / hypoxic in this context. -check ammonia Problem List Initiated/Reviewed/Updated: Yes
[2020-08-10] MEDS: Enoxaparin 40 MG/0.4 ML Syringe SUBCUT SCH (16:46)
[2020-08-10] MEDS ORDERED: Acetaminophen 325 MG Tab PO PRN (16:53)
[2020-08-10] MEDS ORDERED: Gabapentin 300 MG Cap PO SCH (21:00)
--- NOTE | 2020-08-12 14:16 | PCM.DCSUM1 ---
<Francy Diaz - Last Filed: 08/12/20 14:16> Discharge Summary - Hospital Course Brief History: There is a very pleasant 60-year-old female with a past medical history of bipolar disorder on lithium, prior suicide attempts, diabetes mellitus, TONIE, hyperlipidemia, borderline personality disorder, panic disorder presenting with syncope and difficulty speaking. She arrives to the emergency department her sister. Her sister insisted that she come to get evaluated because of reports of syncopal episodes last night. Patient cannot remember clearly, but believes that she had a syncopal episode last night at home while trying to get up off the toilet. She cannot remember if she hit her head or not. She states that after experiencing syncope, she laid on the floor all night where she slept. This morning, she was able to get herself up and drive to a convenience store. Her sister was unable to reach her by phone. A family friend brought her to the emergency department where she met her sister. Here in the emergency department, the patient has no complaints at this point. She does appear to have some mild word finding difficulty and some tremors. The sister states that these are new. It is not entirely clear when the word finding difficulty and the tremor started, the patient thinks that he may have started last night but she is not entirely certain. There is no prior history of CVA, TIA, or acute coronary syndrome. There is no reported history of any anticoagulant or antiplatelet medication usage. No history of thyroid disease. No recent change in lithium dosage. Diagnosis: Stroke: No Modified Saline Scale: No Signif.Disability Despite Sympt.Able to Carry Out Usual Act./Duties Modified Saline Scale Score: 1 - Discharge Data Discharge Date: 08/10/20 Discharge Disposition: Home, Self-Care 01 Condition: Fair - Referral to Home Health Primary Care Physician: PCP None - Discharge Diagnosis/Problem(s) (1) Syncope and collapse SNOMED Code(s): 976055506 ICD Code: R55 - SYNCOPE AND COLLAPSE Status: Acute (2) Confusion SNOMED Code(s): 272802196 ICD Code: R41.0 - DISORIENTATION, UNSPECIFIED Status: Acute Priority: High (3) TIA (transient ischemic attack) SNOMED Code(s): 841955964 ICD Code: G45.9 - TRANSIENT CEREBRAL ISCHEMIC ATTACK, UNSPECIFIED Status: Acute - Patient Summary/Data Consults: Consultations 08/10/20 12:55 Consult to Physician [CONS] Routine Hospital Course: Pt was admitted s/p multiple syncopal episodes, confusion and tremor. Had ext ensive workup for stroke; all studies came back negative. Symptoms improved the following day. No syncope experienced during stay, all labs were normal, no electrolyte abnormalities noted. Telemetry monitoring indicated sinus rhythm the entire time. No cause was found. Considered to have had an TIA since symptoms resolved within 24 hours, therefore discharged with statin and ASA 81mg. Other, possible causes were consider to be vaso-vagal therefore sent home for 2 weeks of Zeo patch (holter) monitor. Dr. Hogan in neurology was also consulted who suggested checking ammonia levels to rule out metabolic encephalopathy; results were negative. In addition had suggested EEG as outpatient and outpatient follow up with Dr. Hogan. - Patient Instructions Diet: Diabetic Diet Activity: As Tolerated - Discharge Plan *PRESCRIPTION DRUG MONITORING PROGRAM REVIEWED*: Not Applicable *COPY OF PRESCRIPTION DRUG MONITORING REPORT IN PATIENT MAGI: Not Applicable Prescriptions/Med Rec: Aspirin 81 mg PO BEDTIME 30 Days tab.chew Home Medications: Home Meds Baclofen 1 tab PO TID PRN 08/09/20 [History] DULoxetine [Cymbalta] 120 mg PO BEDTIME 08/09/20 [History] Doxepin [SINEquan] 20 mg PO BEDTIME 08/09/20 [History] Gabapentin [Neurontin] 1 tab PO DAILY 08/09/20 [History] Gabapentin [Neurontin] 2 cap PO BEDTIME 08/09/20 [History] Pacific Carbonate 3 cap PO BEDTIME 08/09/20 [History] Simvastatin 1 tab PO BEDTIME 08/09/20 [History] Topiramate 1 tab PO BEDTIME 08/09/20 [History] metFORMIN [Glucophage XR] 250 mg PO DAILY 08/09/20 [History] Aspirin 81 mg PO BEDTIME 30 Days tab.chew 08/10/20 [Rx] Oxygen Therapy Mode: Room Air Patient Handouts: Transient Ischemic Attack, Joat-me-Liit, Aspirin, ASA oral tablets, Syncope, [id number] Referrals: Jamia Hogan MD [Physician] - Marion Hutchins MD [Physician] - 08/20/20 10:30 am - Discharge Summary/Plan Comment DC Time >30 min.: Yes - Patient Data Vitals - Most Recent: Last Vital Signs Temp 97.8 F 08/10/20 16:44 Pulse 51 L 08/10/20 16:44 Resp 15 08/10/20 16:44 BP 107/59 L 08/10/20 16:44 Pulse Ox 98 08/10/20 16:44 Orthostatic Blood Pressure [ 86/59 Standing] Orthostatic Blood Pressure [ 95/59 Sitting] Orthostatic Blood Pressure [ 95/57 Supine] Weight - Most Recent: 99.427 kg Med Orders - Current: Current Medications Discontinued Medications Acetaminophen (Tylenol) 650 mg PO Q4H PRN PRN Reason: Pain Aspirin (Aspirin) 324 mg PO ONETIME ONE Stop: 08/09/20 15:30 Last Admin: 08/09/20 16:00 Dose: 324 mg Documented by: Baclofen (Lioresal) 20 mg PO TID PRN PRN Reason: SPASMS Dextrose/Water (Dextrose 50% In Water) 50 ml IV ASDIRECTED PRN PRN Reason: Hypoglycemia Doxepin HCl (Sinequan) 20 mg PO BEDTIME [facility] Last Admin: 08/09/20 21:21 Dose: 20 mg Documented by: Duloxetine HCl (Cymbalta) 120 mg PO BEDTIME [facility] Last Admin: 08/09/20 21:21 Dose: 120 mg Documented by: Enoxaparin Sodium (Lovenox) 40 mg SUBCUT Q24H [facility] Last Admin: 08/10/20 16:46 Dose: 40 mg Documented by: Gabapentin (Neurontin) 600 mg PO BEDTIME TREVIN Gabapentin (Neurontin) 600 mg PO ONETIME ONE Stop: 08/09/20 21:16 Last Admin: 08/09/20 21:21 Dose: 600 mg Documented by: Gadobenate Dimeglumine (Multihance) 20 ml IVPUSH ONETIME STA Stop: 08/10/20 08:27 Last Admin: 08/10/20 08:28 Dose: 20 ml Documented by: Glucagon (Glucagen) 1 mg IM ASDIRECTED PRN PRN Reason: Hypoglycemia Lactated Ringer's (Ringers, Lactated) 1,000 mls @ 999 mls/hr IV .BOLUS ONE Stop: 08/09/20 16:37 Last Admin: 08/09/20 16:00 Dose: 999 mls/hr Documented by: Insulin Aspart (Novolog) 0 unit SUBCUT TIDAC [facility]; Protocol Last Admin: 08/10/20 12:58 Dose: Not Given Documented by: Iopamidol (Isovue Multipack-370 (76%)) 100 ml IVPUSH ONETIME STA Stop: 08/09/20 19:41 Last Admin: 08/09/20 19:41 Dose: 100 ml Documented by: Pacific Carbonate (Eskalith) 300 mg PO BEDTIME [facility] Last Admin: 08/09/20 21:22 Dose: 300 mg Documented by: Non-Formulary Medication (Baclofen [Baclofen]) 1 tab PO TID PRN PRN Reason: Pain Simvastatin (Zocor) 10 mg PO BEDTIME [facility] Last Admin: 08/09/20 21:22 Dose: 10 mg Documented by: Sodium Chloride (Saline Flush) 10 ml FLUSH ASDIRECTED PRN PRN Reason: Keep Vein Open Last Admin: 08/09/20 13:48 Dose: 10 ml Documented by: Sodium Chloride (Saline Flush) 2.5 ml FLUSH ASDIRECTED PRN PRN Reason: Keep Vein Open Last Admin: 08/09/20 13:48 Dose: 2.5 ml Documented by: Topiramate (Topamax) 50 mg PO BEDTIME [facility] Last Admin: 08/09/20 21:22 Dose: 50 mg Documented by: <Tio Martinez - Last Filed: 08/12/20 22:36> Discharge Summary - Referral to Home Health Primary Care Physician: PCP None - Patient Summary/Data Consults: Consultations 08/10/20 12:55 Consult to Physician [CONS] Routine - Patient Data Vitals - Most Recent: Last Vital Signs Temp 36.6 C 08/10/20 16:44 Pulse 51 L 08/10/20 16:44 Resp 15 08/10/20 16:44 BP 107/59 L 08/10/20 16:44 Pulse Ox 98 08/10/20 16:44 Orthostatic Blood Pressure [ 86/59 Standing] Orthostatic Blood Pressure [ 95/59 Sitting] Orthostatic Blood Pressure [ 95/57 Supine] Med Orders - Current: Current Medications Discontinued Medications Acetaminophen (Tylenol) 650 mg PO Q4H PRN PRN Reason: Pain Aspirin (Aspirin) 324 mg PO ONETIME ONE Stop: 08/09/20 15:30 Last Admin: 08/09/20 16:00 Dose: 324 mg Documented by: Baclofen (Lioresal) 20 mg PO TID PRN PRN Reason: SPASMS Dextrose/Water (Dextrose 50% In Water) 50 ml IV ASDIRECTED PRN PRN Reason: Hypoglycemia Doxepin HCl (Sinequan) 20 mg PO BEDTIME [facility] Last Admin: 08/09/20 21:21 Dose: 20 mg Documented by: Duloxetine HCl (Cymbalta) 120 mg PO BEDTIME [facility] Last Admin: 08/09/20 21:21 Dose: 120 mg Documented by: Enoxaparin Sodium (Lovenox) 40 mg SUBCUT Q24H [facility] Last Admin: 08/10/20 16:46 Dose: 40 mg Documented by: Gabapentin (Neurontin) 600 mg PO BEDTIME [facility] Gabapentin (Neurontin) 600 mg PO ONETIME ONE Stop: 08/09/20 21:16 Last Admin: 08/09/20 21:21 Dose: 600 mg Documented by: Gadobenate Dimeglumine (Multihance) 20 ml IVPUSH ONETIME STA Stop: 08/10/20 08:27 Last Admin: 08/10/20 08:28 Dose: 20 ml Documented by: Glucagon (Glucagen) 1 mg IM ASDIRECTED PRN PRN Reason: Hypoglycemia Lactated Ringer's (Ringers, Lactated) 1,000 mls @ 999 mls/hr IV .BOLUS ONE Stop: 08/09/20 16:37 Last Admin: 08/09/20 16:00 Dose: 999 mls/hr Documented by: Insulin Aspart (Novolog) 0 unit SUBCUT TIDAC [facility]; Protocol Last Admin: 08/10/20 12:58 Dose: Not Given Documented by: Iopamidol (Isovue Multipack-370 (76%)) 100 ml IVPUSH ONETIME STA Stop: 08/09/20 19:41 Last Admin: 08/09/20 19:41 Dose: 100 ml Documented by: Pacific Carbonate (Eskalith) 300 mg PO BEDTIME [facility] Last Admin: 08/09/20 21:22 Dose: 300 mg Documented by: Non-Formulary Medication (Baclofen [Baclofen]) 1 tab PO TID PRN PRN Reason: Pain Simvastatin (Zocor) 10 mg PO BEDTIME [facility] Last Admin: 08/09/20 21:22 Dose: 10 mg Documented by: Sodium Chloride (Saline Flush) 10 ml FLUSH ASDIRECTED PRN PRN Reason: Keep Vein Open Last Admin: 08/09/20 13:48 Dose: 10 ml Documented by: Sodium Chloride (Saline Flush) 2.5 ml FLUSH ASDIRECTED PRN PRN Reason: Keep Vein Open Last Admin: 08/09/20 13:48 Dose: 2.5 ml Documented by: Topiramate (Topamax) 50 mg PO BEDTIME [facility] Last Admin: 08/09/20 21:22 Dose: 50 mg Documented by: - Free Text/Narrative Note: I have seen and evaluated the patient. I have discussed findings and treatment plan with resident. I agree with the assessment and plan in the following note.
== END 2020-08-10 18:48 | disposition home or self-care (01) ==
LOC: MW.ED 12:23 → MW.MS 15:36
PROVIDERS: ADMIT Internal Medicine; ATTEND Internal Medicine
DX: G45.9 Transient cerebral ischemic attack, unspecified (principal); R55 Syncope and collapse; E78.00 Pure hypercholesterolemia, unspecified; G47.30 Sleep apnea, unspecified; F32.9 Major depressive disorder, single episode, unspecified; E11.9 Type 2 diabetes mellitus without complications; E66.9 Obesity, unspecified; Z79.84 Long term (current) use of oral hypoglycemic drugs; Z79.899 Other long term (current) drug therapy; Z20.828 Contact with and (suspected) exposure to other viral communicable diseases; Z68.41 Body mass index [BMI] 40.0-44.9, adult
CPT/HCPCS: 36415; 70450; 70496; 70498; 70553; 72125; 80053; 80178; 82140; 82550; 82962; 84443; 84484; 85025; 85610; 93005; 93306; 96360; 96372; 99285; A9270; A9577; G0378; J1650; J7120; Q9967; U0002; 93010; 99217; 99219; 99284

== ENCOUNTER 2020-08-15 21:43 | Emergency (ER) | payer MEDICARE, MEDICAID, OTHER ==
[2020-08-15] MEDS ORDERED: Sodium Chloride 0.9% 10 ML Syringe FLUSH PRN (22:09)
[2020-08-15] MEDS ORDERED: Sodium Chloride 0.9% 2.5 ML Syringe FLUSH PRN (22:09)
[2020-08-15] MEDS ORDERED: ALPRAZolam 0.25 MG Tab PO ONE (22:14)
--- NOTE | 2020-08-15 22:15 | EDM.PDOC ---
ED HPI GENERAL MEDICAL PROBLEM - General Chief Complaint: General Stated Complaint: DISORIENTED UNABLE TO WALK/BACK PAIN Time Seen by Provider: 08/15/20 21:51 - History of Present Illness INITIAL COMMENTS - FREE TEXT/NARRATIVE: History of present illness: [] Patient had a couple of episodes of falling tonight. She did not pass out. She was admitted 09 August 4 3 nights for work-up for falls with syncope. Her MRI of her brain as well as angio of the head and neck and CT unenhanced were all negative and they did not find a cause. Her history said that she had anxiety attacks associated with syncope in the past. This afternoon about 4 PM she said she also hallucinated and thought somebody was there that was not. The patient talked to a family physician today as well as her psychiatrist's nurse. They had initiated some alteration of her medication dosages. Well- nourished topiramate. Thinking this might help with her falls. You have her admission 08 09-08 12 revealed that she had orthostasis at that time. Essentially during her work-up the rest of it was negative. She was discharged with no medication changes at that time. Review of systems: As per history of present illness and below otherwise all systems reviewed and negative. Past medical history: As per history of present illness and as reviewed below otherwise noncontributory. Surgical history: As per history of present illness and as reviewed below otherwise noncontributory. Social history: No reported history of drug or alcohol abuse. Family history: As per history of present illness and as reviewed below otherwise noncontributo ry. Physical exam: Constitutional - well developed, well-nourished and in no acute distress HEENT - normocephalic, no evidence of trauma - external nose and mouth normal - no mass in neck and no JVD - mucosae moist EYES - full EOM, PERRL, no icterus - no evidence of inflammation, injection, or drainage Respiratory - no respiratory distress, equal bilateral expansion, lungs clear to auscultation and no abnormal lung sounds Cardiovascular - Regular Rhythm with S1 and S2 appreciated and no murmur, gallop or rub. GI - abdomen soft without distension or organomegaly - normal bowel sounds - no guard or rebound Musculoskeletal no gross deformity of long bones or joints - no tenderness, swelling or edema Neurologic -patient has a lip smacking and tongue extending tardive dyskinesia. Alert and oriented times four - CN II-XII grossly intact - motor sensory and coordination symmetrically normal Psychiatric - appropriate mood and affect with normal thought content Hematologic - No petechiae or purpura - mucosa appropriate color and sclera not pale - normal nail bed color and refill Integument - no rash or evidence of trauma - normal turgor Diagnostics: [] Therapeutics: [] Impression: [] Plan: [] Definitive disposition and diagnosis as appropriate pending reevaluation and review of above. lower back Pain Score (Numeric/FACES): 3 - Related Data Allergies Allergy/AdvReac Type Severity Reaction Status Date / Time No Known Allergies Allergy Verified 08/15/20 21:53 Home Meds: Home Meds Baclofen 20 mg PO TID PRN 08/09/20 [History] DULoxetine [Cymbalta] 120 mg PO BEDTIME 08/09/20 [History] Gabapentin [Neurontin] 300 mg PO DAILY 08/09/20 [History] Gabapentin [Neurontin] 600 mg PO BEDTIME 08/09/20 [History] Nenzel Carbonate 900 mg PO BEDTIME 08/09/20 [History] Simvastatin 10 mg PO BEDTIME 08/09/20 [History] Topiramate 50 mg PO BEDTIME 08/09/20 [History] metFORMIN [Glucophage XR] 250 mg PO DAILY 08/09/20 [History] Past Medical History HEENT History: Reports: Allergic Rhinitis, Other (See Below) Other HEENT History: myopia. astigmatism Cardiovascular History: Reports: High Cholesterol Respiratory History: Reports: Sleep Apnea Other Respiratory History: CPAP @ night Gastrointestinal History: Reports: Chronic Constipation Genitourinary History: Reports: Other (See Below) Other Genitourinary History: urge incontinence. nonorganic enuresis FAMILY COURT JUSTICE History: Reports: None Musculoskeletal History: Reports: Back Pain, Chronic, Other (See Below) Other Musculoskeletal History: DJD. tendinitis of right shoulder. left achilles tendinitis. hip pain Neurological History: Reports: Other (See Below) Other Neuro History: memory loss Psychiatric History: Reports: Bipolar, Depression, PTSD, Other (See Below) Other Psychiatric History: Borderline Personality Disorder. Dissociative Identity Disorder. social maladjustment Endocrine/Metabolic History: Reports: Diabetes, Type II, Obesity/BMI 30+ Insulin Pump Model and Cut Lace Machine Operator: None Hematologic History: Reports: None Immunologic History: Reports: None Oncologic (Cancer) History: Reports: None Dermatologic History: Reports: None - Infectious Disease History Infectious Disease History: Reports: Chicken Pox, Measles, Mumps - Past Surgical History Head Surgeries/Procedures: Reports: None Social & Family History - Family History Family Medical History: Noncontributory GI: Reports: Cirrhosis Endocrine/Metabolic: Reports: Diabetes, type II - Tobacco Use Tobacco Use Status *Q: Never Tobacco User - Caffeine Use Caffeine Use: Reports: Soda - Recreational Drug Use Recreational Drug Use: No - Living Situation & Occupation Living situation: Reports: Single, Alone Occupation: Disabled ED ROS GENERAL - Review of Systems Review Of Systems: Comprehensive ROS is negative, except as noted in HPI. ED EXAM, GENERAL - Physical Exam Exam: See Below Free Text/Narrative:: My physical exam is in the HPI #1 Interpretation EKG Interpretation Comments: Date Time Time read Rhythm Rate Stanley Presence of P wave QRS ST and T QT interval Comparison Impression G done 1028 at 2216 hrs. Sinus rhythm heart rate 55 VT interval 170. Stanley -4. QT 442. This is a sinus bradycardia. His EKG is unremarkable and unchanged from 08/09/2020. Impression no acute injury or arrhythmia. Course - Vital Signs Text/Narrative:: 11:27 PM patient is unable to stand on her own. Her legs will get out. When she tries to stand up she has rhythmic but very slow contortions of her neck and face with jerking and tremor. Have any alteration in level of consciousness during these episodes. This patient may have a functional component or conversion reaction. Somatization is always on the differential but her medications and their interaction could also cause the neurologic findings that she has. She did not improve with benzodiazepines. I discussed the case with Dr. Garcia in [place] at [facility] and he agreed to accept the patient because he could have neurology and psychology and psychiatry involved. In fact her psychiatrist is on their staff. I am bypassing [facility] in [place] because they do not have beds. Last Recorded V/S: Last Vital Signs Temp 98.7 F 08/15/20 21:48 Pulse 53 L 08/16/20 00:29 Resp 18 08/15/20 21:48 BP 132/73 08/16/20 00:29 Pulse Ox 95 08/16/20 00:29 Orthostatic Blood Pressure [ 129/77 Standing] Orthostatic Blood Pressure [ 120/66 Sitting] Orthostatic Blood Pressure [ 119/88 Supine] - Orders/Labs/Meds Orders: Active Orders 24 hr Category Date Time Status EKG Documentation Completion [RC] AM Care 08/15/20 22:09 Active Orthostatic Vital Signs [RC] ASDIRECTED Care 08/15/20 22:08 Active CORONAVIRUS COVID-19 PCR [facility] Stat Lab 08/15/20 23:50 Received Sodium Chloride 0.9% [Saline Flush] Med 08/15/20 22:09 Active 10 ml FLUSH ASDIRECTED PRN Sodium Chloride 0.9% [Saline Flush] Med 08/15/20 22:09 Active 2.5 ml FLUSH ASDIRECTED PRN Saline Lock Insert [OM.PC] Stat Oth 08/15/20 22:09 Ordered Medication Orders Sodium Chloride (Saline Flush) 10 ml FLUSH ASDIRECTED PRN PRN Reason: Keep Vein Open Last Admin: 08/15/20 23:03 Dose: 10 ml Documented by: [id number] Sodium Chloride (Saline Flush) 2.5 ml FLUSH ASDIRECTED PRN PRN Reason: Keep Vein Open Last Admin: 08/15/20 23:03 Dose: 2.5 ml Documented by: [id number] Labs: Laboratory Tests 08/15/20 08/15/20 08/15/20 Range/Units 22:26 22:26 23:50 WBC 6.44 (4.0-11.0) K/uL RBC 4.44 (4.30-5.90) M/uL Hgb 13.3 (12.0-16.0) g/dL Hct 39.8 (36.0-46.0) % MCV 89.6 (80.0-98.0) fL MCH 30.0 (27.0-32.0) pg MCHC 33.4 (31.0-37.0) g/dL RDW Std Deviation 45.6 (28.0-62.0) fl RDW Coeff of Jason 14 (11.0-15.0) % Plt Count 240 (150-400) K/uL MPV 10.10 (7.40-12.00) fL Neut % (Auto) 53.4 (48.0-80.0) % Lymph % (Auto) 32.8 (16.0-40.0) % Howard % (Auto) 10.2 (0.0-15.0) % Eos % (Auto) 3.3 (0.0-7.0) % Baso % (Auto) 0.3 (0.0-1.5) % Neut # (Auto) 3.4 (1.4-5.7) K/uL Lymph # (Auto) 2.1 (0.6-2.4) K/uL Howard # (Auto) 0.7 (0.0-0.8) K/uL Eos # (Auto) 0.2 (0.0-0.7) K/uL Baso # (Auto) 0.0 (0.0-0.1) K/uL Nucleated RBC % 0.0 /100WBC Nucleated RBCs # 0 K/uL Sodium 142 (136-145) mmol/L Potassium 3.5 (3.5-5.1) mmol/L Chloride 109 H (98-107) mmol/L Carbon Dioxide 23.6 (21.0-32.0) mmol/L BUN 5 L (7.0-18.0) mg/dL Creatinine 1.1 H (0.6-1.0) mg/dL Est Cr Clr Drug Dosing 41.94 mL/min Estimated GFR (MDRD) 50.3 ml/min Glucose 121 H (74-106) mg/dL Calcium 9.4 (8.5-10.1) mg/dL Magnesium 2.2 (1.8-2.4) mg/dL Total Bilirubin 0.4 (0.2-1.0) mg/dL AST 12 L (15-37) IU/L ALT 13 L (14-63) IU/L Alkaline Phosphatase 81 (46-116) U/L Total Protein 6.5 (6.4-8.2) g/dL Albumin 3.6 (3.4-5.0) g/dL Globulin 2.9 (2.6-4.0) g/dL Albumin/Globulin Ratio 1.2 (0.9-1.6) SARS CoV-2 RNA Rapid RAYMUNDO NEGATIVE (NEGATIVE) Meds: Medications Generic Name Dose Route Start Last Admin Trade Name Freq PRN Reason Stop Dose Admin Sodium Chloride 10 ml 08/15/20 22:09 08/15/20 23:03 Saline Flush FLUSH 10 ml ASDIRECTED PRN Administration Keep Vein Open Sodium Chloride 2.5 ml 08/15/20 22:09 08/15/20 23:03 Saline Flush FLUSH 2.5 ml ASDIRECTED PRN Administration Keep Vein Open Discontinued Medications Generic Name Dose Route Start Last Admin Trade Name Freq PRN Reason Stop Dose Admin Alprazolam 0.25 mg 08/15/20 22:14 08/15/20 23:00 Xanax PO 08/15/20 22:15 0.25 mg ONETIME ONE Administration Departure - Departure Time of Disposition: 04:00 Disposition: DC/Tfer to [facility] 02 Condition: Good Clinical Impression: Myoclonus, Inability to walk, Lower extremity weakness - Discharge Information Referrals: PCP,None [Primary Care Provider] - Forms: ED Department Discharge Sepsis Event Note (ED) - Evaluation Sepsis Screening Result: No Definite Risk - Focused Exam Vital Signs: Vital Signs Temp Pulse Resp BP Pulse Ox 08/16/20 00:29 53 L 132/73 95 08/16/20 00:14 54 L 137/69 95 08/15/20 22:53 49 L 126/69 95 08/15/20 22:14 55 L 121/69 95 08/15/20 22:00 59 L 127/63 95 08/15/20 21:48 98.7 F 59 L 18 148/63 H 97 - My Orders Last 24 Hours: My Active Orders 08/15/20 22:08 Orthostatic Vital Signs [RC] ASDIRECTED 08/15/20 22:09 EKG Documentation Completion [RC] AM Sodium Chloride 0.9% [Saline Flush] 10 ml FLUSH ASDIRECTED PRN Sodium Chloride 0.9% [Saline Flush] 2.5 ml FLUSH ASDIRECTED PRN Saline Lock Insert [OM.PC] Stat 08/15/20 23:50 CORONAVIRUS COVID-19 PCR PHL Stat - Assessment/Plan Last 24 Hours: My Active Orders 08/15/20 22:08 Orthostatic Vital Signs [RC] ASDIRECTED 08/15/20 22:09 EKG Documentation Completion [RC] AM Sodium Chloride 0.9% [Saline Flush] 10 ml FLUSH ASDIRECTED PRN Sodium Chloride 0.9% [Saline Flush] 2.5 ml FLUSH ASDIRECTED PRN Saline Lock Insert [OM.PC] Stat 08/15/20 23:50 CORONAVIRUS COVID-19 PCR PHL Stat
[2020-08-15 22:55] LABS: CARBON DIOXIDE,CO2 23.6 mmol/L (21.0-32.0); POTASSIUM,K 3.5 mmol/L (3.5-5.1)
== END 2020-08-16 09:11 ==
LOC: MW.ED 21:43
DX: G25.3 Myoclonus (principal); R26.9 Unspecified abnormalities of gait and mobility; M62.81 Muscle weakness (generalized); E11.9 Type 2 diabetes mellitus without complications; E66.9 Obesity, unspecified; F31.9 Bipolar disorder, unspecified; E78.00 Pure hypercholesterolemia, unspecified; Z79.84 Long term (current) use of oral hypoglycemic drugs; Z79.899 Other long term (current) drug therapy; Z20.828 Contact with and (suspected) exposure to other viral communicable diseases
CPT/HCPCS: 36415; 80053; 83735; 85025; 93005; 99285; A9270; U0002; 93010

== ENCOUNTER 2020-09-03 13:50 | Emergency (ER) | payer MEDICARE, MEDICAID ==
[2020-09-03] MEDS ORDERED: Rocuronium 50 MG/5 ML Vial IVPUSH ONE (13:57)
[2020-09-03] MEDS ORDERED: fentaNYL 100 MCG/2 ML SDV ONE (13:58)
[2020-09-03] MEDS ORDERED: Sodium Chloride 0.9% 10 ML Syringe FLUSH PRN (14:04)
[2020-09-03] MEDS ORDERED: Sodium Chloride 0.9% 2.5 ML Syringe FLUSH PRN (14:04)
--- NOTE | 2020-09-03 14:06 | EDM.PDOC ---
ED HPI GENERAL MEDICAL PROBLEM - General Chief Complaint: Trauma Stated Complaint: EMS ARRIVAL Time Seen by Provider: 09/03/20 13:50 Source of Information: Reports: Patient, Old Records History Limitations: Reports: No Limitations - History of Present Illness INITIAL COMMENTS - FREE TEXT/NARRATIVE: This is a 60-year-old female with a past medical history of TONIE, diabetes mellitus, hyperlipidemia, borderline personality disorder, depression, prior polysubstance overdose, TIA presenting with altered mental status. She presents to the hospital by ambulance. [facility] called 911 for a welfare check on the patient. When the police arrived, the patient was found on the toilet with signs of facial trauma. Police officers were concerned that the patient was going to lose consciousness so they called for an ambulance. When the ambulance crew arrived, the patient was combative. She was able to tell them that she did not want to go to the hospital but she was not answering questions appropriately. They were able to get her into the ambulance and then noted that her mental status declined in route. She was not able to tell anyone what happened to her to cause her injuries. Upon arrival to the hospital, the patient is minimally responsive to pain. She can only say "no". She is not able to follow commands or provide any meaningful information. She has obvious facial trauma and is not able to participate in the interview due to altered mental status. ROS: Patient is not able to participate in the ROS due to altered mental status. Past medical history: Reviewed, no additional pertinent history. Surgical history: Reviewed in system, no additional pertinent history. Social history: Reviewed in system, no additional pertinent history. Family history: Reviewed in system, no additional pertinent history. PHYSICAL EXAM Vital signs reviewed. Nursing notes reviewed. Constitutional: Minimally responsive to pain. Head: Raccoons eyes bilaterally. Eyes: Conjunctiva normal, no discharge, no scleral icterus. Pupils 5 mm bilaterally. Ears, Nose, Throat: External ears and nose normal, moist oral mucosa. No otorrhea or rhinorrhea. Neck: No deformities. Cardiovascular: 2+ radial pulse, capillary refill less than 2 seconds. Pulmonary: normal work of breathing, no accessory muscle use. Abdomen/GI: Soft, obese, nondistended, no guarding or rigidity, no masses. Musculoskeletal: No deformities. Back: Atraumatic. Integumentary: Appropriate color for ethnicity, warm, dry, no pallor or jaundice, no rash. Neurologic: Responds to painful stimuli, unable to follow commands. Moving all extremities well. Numerous superficial scratches and abrasions to the chest and extremities. Psychiatric: Unable to assess. This patient was seen and evaluated during the 2019 SARS-CoV-2 novel coronavirus pandemic period. Community viral transmission is ongoing at time of this encounter and the emergency department is operating under pandemic response procedures. - Related Data Allergies Allergy/AdvReac Type Severity Reaction Status Date / Time No Known Allergies Allergy Unverified 09/03/20 14:09 Home Meds: Home Meds Baclofen 20 mg PO TID PRN 08/09/20 [History] DULoxetine [Cymbalta] 120 mg PO BEDTIME 08/09/20 [History] Gabapentin [Neurontin] 300 mg PO DAILY 08/09/20 [History] Gabapentin [Neurontin] 600 mg PO BEDTIME 08/09/20 [History] [place] Carbonate 900 mg PO BEDTIME 08/09/20 [History] Simvastatin 10 mg PO BEDTIME 08/09/20 [History] Topiramate 50 mg PO BEDTIME 08/09/20 [History] metFORMIN [Glucophage XR] 250 mg PO DAILY 08/09/20 [History] Past Medical History HEENT History: Reports: Allergic Rhinitis, Other (See Below) Other HEENT History: myopia. astigmatism Cardiovascular History: Reports: High Cholesterol Respiratory History: Reports: Sleep Apnea Other Respiratory History: CPAP @ night Gastrointestinal History: Reports: Chronic Constipation Genitourinary History: Reports: Other (See Below) Other Genitourinary History: urge incontinence. nonorganic enuresis RECORD LIBRARIAN History: Reports: None Musculoskeletal History: Reports: Back Pain, Chronic, Other (See Below) Other Musculoskeletal History: DJD. tendinitis of right shoulder. left achilles tendinitis. hip pain Neurological History: Reports: Other (See Below) Other Neuro History: memory loss Psychiatric History: Reports: Bipolar, Depression, PTSD, Other (See Below) Other Psychiatric History: Borderline Personality Disorder. Dissociative Identity Disorder. social maladjustment Endocrine/Metabolic History: Reports: Diabetes, Type II, Obesity/BMI 30+ Insulin Pump Model and Meat Cutting Block Repairer: None Hematologic History: Reports: None Immunologic History: Reports: None Oncologic (Cancer) History: Reports: None Dermatologic History: Reports: None - Infectious Disease History Infectious Disease History: Reports: Chicken Pox, Measles, Mumps - Past Surgical History Head Surgeries/Procedures: Reports: None Social & Family History - Family History Family Medical History: No Pertinent Family History GI: Reports: Cirrhosis Endocrine/Metabolic: Reports: Diabetes, type II - Caffeine Use Caffeine Use: Reports: Soda - Living Situation & Occupation Living situation: Reports: Single, Alone Occupation: Disabled Review of Systems - Review of Systems Review Of Systems: See Below ED EXAM, GENERAL - Physical Exam Exam: See Below ED TRAUMA PROCEDURES - Endotracheal Intubation Time of Intubation: 14:05 ET Intubation Indication: Airway Protection Preparation: Suction, Balloon Tested, BVM Set Up, Difficult Airway Equip Pre-Oxygenation: 100% FiO2 Anesthesia Meds: Etomidate Placement: Orotracheal Cords Visualized: Yes, Grade 1 ETT Size In mm: 7.5 Number of Attempts: 1 Confirmed By: CO2 Indicator, Bilateral Breath Sounds, Chest Xray Tube Secured By: By RT ED ULTRASOUND - FAST Exam Indication: blunt trauma Exam type: FAST exam Findings: no free fluid noted Impression: normal exam Images archived: No #1 Interpretation EKG Interpretation Comments: 12-Lead ECG Interpretation Acquired: 2:02 PM Rhythm: Sinus rhythm Rate: 90 bpm [place]: Normal Intervals: Normal Ectopy: None RV Strain: No obvious RV strain pattern. ST Segments/T-Waves: No notable changes Acute Ischemic Changes: None apparent Interpretation: No STEMI Course - Vital Signs Text/Narrative:: On arrival patient was minimally responsive to pain and has obvious facial trauma. I was concerned about a basilar skull fracture (appears to have raccoon's eyes). Patient has very altered mental status and I am concerned about a serious head injury based on her initial presentation and physical exam. Monitoring equipment was attached and IV access was established. I did place an intraosseous catheter in the right tibial plateau due to difficult IV access and need for emergent intubation. The patient was placed in a cervical collar. Decision was made to pursue endotracheal intubation for airway protection. This was performed as detailed in procedure note. Post intubation sedation with propofol. Chest x-ray shows no pneumothorax, hemothorax, or obvious rib fractures. ET tube in good position along with gastric tube. Additional IV access was established and blood was sent to the lab. We obtained a twelve-lead EKG which shows normal intervals and no obvious ischemic pattern. E-FAST ultrasound is negative. Patient was taken to the CT scanner for imaging of the head, cervical spine, chest/abdomen/pelvis, and thoracolumbar spines. I saw no gross abnormalities based on my initial examination although we did not have radiology reads prior to patient departure. Patient was returned to the ED bay. A Heck catheter was placed. Labs are largely unremarkable. Normal cell lines. Normal INR and lactate. Metabolic panel is unremarkable. CK negative, troponin negative, test negative. Salicylates are 2.3 which is detectable but within the reference range. Negative acetaminophen and ethyl alcohol. Flight crew arrived and care was transitioned to them in good condition. I spoke with Dr. Thomas at [facility] in [place] who agrees to accept the transfer. Last Recorded V/S: Last Vital Signs Temp 37.0 C 09/03/20 13:50 Pulse 117 H 09/03/20 13:50 Resp 8 L 09/03/20 13:50 BP 151/66 H 09/03/20 13:50 Pulse Ox 94 L 09/03/20 13:50 - Orders/Labs/Meds Orders: Active Orders 24 hr Category Date Time Status Cardiac Monitoring [RC] . DIRECTED Care 09/03/20 14:04 Active EKG Documentation Completion [RC] STAT Care 09/03/20 14:04 Active Pulse Oximetry [RC] ASDIRECTED Care 09/03/20 14:04 Active RASS Sedation Scale [RC] ASDIRECTED Care 09/03/20 14:47 Active Abdomen Pelvis w Cont [CT] Stat Exams 09/03/20 14:03 Taken Chest w Cont [CT] Stat Exams 09/03/20 14:04 Taken Lumbar Spine wo Cont [CT] Stat Exams 09/03/20 14:03 Taken Thoracic Spine wo Cont [CT] Stat Exams 09/03/20 14:03 Taken Sodium Chloride 0.9% [Saline Flush] Med 09/03/20 14:04 Active 10 ml FLUSH ASDIRECTED PRN Sodium Chloride 0.9% [Saline Flush] Med 09/03/20 14:04 Active 2.5 ml FLUSH ASDIRECTED PRN propofoL [Diprivan 100 ML] 100 ml Med 09/03/20 14:10 Active IV TITRATE Desired Level of Sedation (RASS) [AST] Click to Edit Ot 09/03/20 14:47 Ordered Saline Lock Insert [OM.PC] Stat [facility] 09/03/20 14:04 Ordered Medication Orders Propofol (Diprivan 100 Ml) 100 mls @ 17.82 mls/hr IV TITRATE TREVIN; Protocol Sodium Chloride (Saline Flush) 10 ml FLUSH ASDIRECTED PRN PRN Reason: Keep Vein Open Sodium Chloride (Saline Flush) 2.5 ml FLUSH ASDIRECTED PRN PRN Reason: Keep Vein Open Labs: Laboratory Tests 09/03/20 09/03/20 09/03/20 Range/Units 12:56 13:50 13:50 WBC 9.42 (4.0-11.0) K/uL RBC 4.57 (4.30-5.90) M/uL Hgb 14.0 (12.0-16.0) g/dL Hct 41.3 (36.0-46.0) % MCV 90.4 (80.0-98.0) fL MCH 30.6 (27.0-32.0) pg MCHC 33.9 (31.0-37.0) g/dL RDW Std Deviation 44.5 (28.0-62.0) fl RDW Coeff of Jason 14 (11.0-15.0) % Plt Count 219 (150-400) K/uL MPV 9.70 (7.40-12.00) fL Neut % (Auto) 79.6 (48.0-80.0) % Lymph % (Auto) 14.3 L (16.0-40.0) % Brooke % (Auto) 5.7 (0.0-15.0) % Eos % (Auto) 0.2 (0.0-7.0) % Baso % (Auto) 0.2 (0.0-1.5) % Neut # (Auto) 7.5 H (1.4-5.7) K/uL Lymph # (Auto) 1.4 (0.6-2.4) K/uL Brooke # (Auto) 0.5 (0.0-0.8) K/uL Eos # (Auto) 0.0 (0.0-0.7) K/uL Baso # (Auto) 0.0 (0.0-0.1) K/uL Nucleated RBC % 0.0 /100WBC Nucleated RBCs # 0 K/uL INR 0.99 APTT 23.0 (18.6-31.3) SEC Lactate (0.20-2.00) mmol/L Sodium (136-145) mmol/L Potassium (3.5-5.1) mmol/L Chloride (98-107) mmol/L Carbon Dioxide (21.0-32.0) mmol/L BUN (7.0-18.0) mg/dL Creatinine (0.6-1.0) mg/dL Est Cr Clr Drug Dosing mL/min Estimated GFR (MDRD) ml/min Glucose (74-106) mg/dL Calcium (8.5-10.1) mg/dL Total Bilirubin (0.2-1.0) mg/dL AST (15-37) IU/L ALT (14-63) IU/L Alkaline Phosphatase (46-116) U/L Creatine Kinase (26-308) U/L Troponin I (0.000-0.056) ng/mL Total Protein (6.4-8.2) g/dL Albumin (3.4-5.0) g/dL Globulin (2.6-4.0) g/dL Albumin/Globulin Ratio (0.9-1.6) HCG, Qual (NEG) Salicylates (0-20) mg/dL Urine Opiates Screen NEGATIVE (NEGATIVE) Ur Oxycodone Screen NEGATIVE (NEGATIVE) Urine Methadone Screen NEGATIVE (NEGATIVE) Acetaminophen ug/mL Ur Barbiturates Screen NEGATIVE (NEGATIVE) Ur Phencyclidine Scrn NEGATIVE (NEGATIVE) Ur Amphetamine Screen NEGATIVE (NEGATIVE) U Methamphetamines Scrn NEGATIVE (NEGATIVE) U Benzodiazepines Scrn NEGATIVE (NEGATIVE) U Cocaine Metab Screen NEGATIVE (NEGATIVE) U Marijuana (THC) Screen NEGATIVE (NEGATIVE) Ethyl Alcohol mg/dL Blood Type 09/03/20 09/03/20 09/03/20 Range/Units 13:50 13:50 13:50 WBC (4.0-11.0) K/uL RBC (4.30-5.90) M/uL Hgb (12.0-16.0) g/dL Hct (36.0-46.0) % MCV (80.0-98.0) fL MCH (27.0-32.0) pg MCHC (31.0-37.0) g/dL RDW Std Deviation (28.0-62.0) fl RDW Coeff of Jason (11.0-15.0) % Plt Count (150-400) K/uL MPV (7.40-12.00) fL Neut % (Auto) (48.0-80.0) % Lymph % (Auto) (16.0-40.0) % Brooke % (Auto) (0.0-15.0) % Eos % (Auto) (0.0-7.0) % Baso % (Auto) (0.0-1.5) % Neut # (Auto) (1.4-5.7) K/uL Lymph # (Auto) (0.6-2.4) K/uL Brooke # (Auto) (0.0-0.8) K/uL Eos # (Auto) (0.0-0.7) K/uL Baso # (Auto) (0.0-0.1) K/uL Nucleated RBC % /100WBC Nucleated RBCs # K/uL INR APTT (18.6-31.3) SEC Lactate 1.2 (0.20-2.00) mmol/L Sodium 145 (136-145) mmol/L Potassium 3.9 (3.5-5.1) mmol/L Chloride 112 H (98-107) mmol/L Carbon Dioxide 25.0 (21.0-32.0) mmol/L BUN 7 (7.0-18.0) mg/dL Creatinine 0.9 (0.6-1.0) mg/dL Est Cr Clr Drug Dosing 63.03 mL/min Estimated GFR (MDRD) > 60.0 ml/min Glucose 119 H (74-106) mg/dL Calcium 9.5 (8.5-10.1) mg/dL Total Bilirubin 0.6 (0.2-1.0) mg/dL AST 19 (15-37) IU/L ALT 23 (14-63) IU/L Alkaline Phosphatase 84 (46-116) U/L Creatine Kinase 60 (26-308) U/L Troponin I < 0.050 (0.000-0.056) ng/mL Total Protein 7.2 (6.4-8.2) g/dL Albumin 3.6 (3.4-5.0) g/dL Globulin 3.6 (2.6-4.0) g/dL Albumin/Globulin Ratio 1.0 (0.9-1.6) HCG, Qual NEGATIVE (NEG) Salicylates 2.3 (0-20) mg/dL Urine Opiates Screen (NEGATIVE) Ur Oxycodone Screen (NEGATIVE) Urine Methadone Screen (NEGATIVE) Acetaminophen <2.0 ug/mL Ur Barbiturates Screen (NEGATIVE) Ur Phencyclidine Scrn (NEGATIVE) Ur Amphetamine Screen (NEGATIVE) U Methamphetamines Scrn (NEGATIVE) U Benzodiazepines Scrn (NEGATIVE) U Cocaine Metab Screen (NEGATIVE) U Marijuana (THC) Screen (NEGATIVE) Ethyl Alcohol < 3.0 mg/dL Blood Type 09/03/20 Range/Units 13:50 WBC (4.0-11.0) K/uL RBC (4.30-5.90) M/uL Hgb (12.0-16.0) g/dL Hct (36.0-46.0) % MCV (80.0-98.0) fL MCH (27.0-32.0) pg MCHC (31.0-37.0) g/dL RDW Std Deviation (28.0-62.0) fl RDW Coeff of Jason (11.0-15.0) % Plt Count (150-400) K/uL MPV (7.40-12.00) fL Neut % (Auto) (48.0-80.0) % Lymph % (Auto) (16.0-40.0) % Brooke % (Auto) (0.0-15.0) % Eos % (Auto) (0.0-7.0) % Baso % (Auto) (0.0-1.5) % Neut # (Auto) (1.4-5.7) K/uL Lymph # (Auto) (0.6-2.4) K/uL Brooke # (Auto) (0.0-0.8) K/uL Eos # (Auto) (0.0-0.7) K/uL Baso # (Auto) (0.0-0.1) K/uL Nucleated RBC % /100WBC Nucleated RBCs # K/uL INR APTT (18.6-31.3) SEC Lactate (0.20-2.00) mmol/L Sodium (136-145) mmol/L Potassium (3.5-5.1) mmol/L Chloride (98-107) mmol/L Carbon Dioxide (21.0-32.0) mmol/L BUN (7.0-18.0) mg/dL Creatinine (0.6-1.0) mg/dL Est Cr Clr Drug Dosing mL/min Estimated GFR (MDRD) ml/min Glucose (74-106) mg/dL Calcium (8.5-10.1) mg/dL Total Bilirubin (0.2-1.0) mg/dL AST (15-37) IU/L ALT (14-63) IU/L Alkaline Phosphatase (46-116) U/L Creatine Kinase (26-308) U/L Troponin I (0.000-0.056) ng/mL Total Protein (6.4-8.2) g/dL Albumin (3.4-5.0) g/dL Globulin (2.6-4.0) g/dL Albumin/Globulin Ratio (0.9-1.6) HCG, Qual (NEG) Salicylates (0-20) mg/dL Urine Opiates Screen (NEGATIVE) Ur Oxycodone Screen (NEGATIVE) Urine Methadone Screen (NEGATIVE) Acetaminophen ug/mL Ur Barbiturates Screen (NEGATIVE) Ur Phencyclidine Scrn (NEGATIVE) Ur Amphetamine Screen (NEGATIVE) U Methamphetamines Scrn (NEGATIVE) U Benzodiazepines Scrn (NEGATIVE) U Cocaine Metab Screen (NEGATIVE) U Marijuana (THC) Screen (NEGATIVE) Ethyl Alcohol mg/dL Blood Type O POSITIVE Meds: Medications Generic Name Dose Route Start Last Admin Trade Name Freq PRN Reason Stop Dose Admin Propofol 100 mls @ 17.82 mls/hr 09/03/20 14:10 Diprivan 100 Ml IV TITRATE TREVIN Protocol 30 MCG/KG/MIN Sodium Chloride 10 ml 09/03/20 14:04 Saline Flush FLUSH ASDIRECTED PRN Keep Vein Open Sodium Chloride 2.5 ml 09/03/20 14:04 Saline Flush FLUSH ASDIRECTED PRN Keep Vein Open Discontinued Medications Generic Name Dose Route Start Last Admin Trade Name Gianfrancoq PRN Reason Stop Dose Admin Etomidate 20 mg 09/03/20 14:44 Amidate IVPUSH 09/03/20 14:45 ONETIME ONE Fentanyl Confirm 09/03/20 13:58 Sublimaze Administered 09/03/20 13:59 Dose 100 mcg .ROUTE .STK-MED ONE Iopamidol 100 ml 09/03/20 15:06 09/03/20 15:07 Isovue Multipack-370 (76%) IVPUSH 09/03/20 15:07 100 ml ONETIME ONE Administration Propofol 40 mg 09/03/20 14:48 Diprivan 20 Ml IVPUSH 09/03/20 14:49 ONETIME ONE Rocuronium [place] 125 mg 09/03/20 14:45 Zemuron IVPUSH 09/03/20 14:46 ONETIME ONE Departure - Departure Time of Disposition: 14:46 Disposition: DC/Tfer to Acute Hospital 02 Condition: Fair Clinical Impression: Acute encephalopathy Facial contusion Qualifiers: Encounter type: initial encounter Qualified Code(s): S00.83XA - Contusion of other part of head, initial encounter Altered mental status Qualifiers: Altered mental status type: coma Coma depth: not fully reported Coma timing: at arrival to emergency department Qualified Code(s): R40.2442 - Other coma, without documented Notrees coma scale score, or with partial score reported, at arrival to emergency department - Discharge Information Forms: ED Department Discharge Critical Care Note - Critical Care Note Total Time (mins): 60 Comments: Critical care time is exclusive of billable procedures and the time to perform these procedures. Critical care time was used to prevent vital system organ failure and deterioration. Critical care time includes bedside management and high-complexity decision making requiring my highest level of mental preparedness and attention. This includes reviewing the patient's chart and prior medical records, ordering and reviewing interpreting laboratory studies and imaging results, interpretation of vital signs and EKG, pulse oximetry, and discussion with the admitting team or accepting facility, discussions with EMS and nursing staff, and discussions with any family members if available. Altered mental status and facial trauma requiring endotracheal intubation via rapid sequence induction for airway protection. IO needle placement. Transferred by air ambulance to trauma center. Sepsis Event Note (ED) - Focused Exam Vital Signs: Vital Signs Temp Pulse Resp BP Pulse Ox 09/03/20 13:50 37.0 C 117 H 8 L 151/66 H 94 L - My Orders Last 24 Hours: My Active Orders 09/03/20 14:03 Abdomen Pelvis w Cont [CT] Stat Lumbar Spine wo Cont [CT] Stat Thoracic Spine wo Cont [CT] Stat 09/03/20 14:04 Cardiac Monitoring [RC] . DIRECTED EKG Documentation Completion [RC] STAT Pulse Oximetry [RC] ASDIRECTED Chest w Cont [CT] Stat Sodium Chloride 0.9% [Saline Flush] 10 ml FLUSH ASDIRECTED PRN Sodium Chloride 0.9% [Saline Flush] 2.5 ml FLUSH ASDIRECTED PRN Saline Lock Insert [OM.PC] Stat 09/03/20 14:10 propofoL [Diprivan 100 ML] 100 ml IV TITRATE 09/03/20 14:47 RASS Sedation Scale [RC] ASDIRECTED Desired Level of Sedation (RASS) [AST] Click to Edit - Assessment/Plan Last 24 Hours: My Active Orders 09/03/20 14:03 Abdomen Pelvis w Cont [CT] Stat Lumbar Spine wo Cont [CT] Stat Thoracic Spine wo Cont [CT] Stat 09/03/20 14:04 Cardiac Monitoring [RC] . DIRECTED EKG Documentation Completion [RC] STAT Pulse Oximetry [RC] ASDIRECTED Chest w Cont [CT] Stat Sodium Chloride 0.9% [Saline Flush] 10 ml FLUSH ASDIRECTED PRN Sodium Chloride 0.9% [Saline Flush] 2.5 ml FLUSH ASDIRECTED PRN Saline Lock Insert [OM.PC] Stat 09/03/20 14:10 propofoL [Diprivan 100 ML] 100 ml IV TITRATE 09/03/20 14:47 RASS Sedation Scale [RC] ASDIRECTED Desired Level of Sedation (RASS) [AST] Click to Edit
[2020-09-03] MEDS ORDERED: propofoL 100 ML IV SCH (14:10)
[2020-09-03] MEDS ORDERED: Etomidate 2 MG/ML 20 ML SDV IVPUSH ONE (14:44)
--- NOTE | 2020-09-03 14:44 | CR ---
Indication: Trauma, post intubation Comparison: None available. Technique: Single AP view chest Findings: There is mild interstitial prominence seen throughout the bilateral hemithoraces without dense consolidation. There is no pneumothorax. There is demonstration of endotracheal tube which overlies the mainstem bronchus, recommend pulling back approximately 2 centimeters. There is satisfactory position of nasogastric tube with the tip in the gastric antrum. The bony thorax is grossly intact. Impression: Demonstration of a somewhat low lying endotracheal tube overlying the right mainstem bronchus, recommend repositioning by pulling back approximately 2 centimeters, otherwise mild likely pulmonary vascular congestion is appreciated. Dictated by Shaheed Black MD @ Sep 03 2020 2:43PM Signed by Dr. Shaheed Black @ Sep 03 2020 2:44PM
[2020-09-03] MEDS ORDERED: Rocuronium 100 MG/10 ML Syringe IVPUSH ONE (14:45)
[2020-09-03] MEDS ORDERED: Propofol 200 MG/20 ML SDV IVPUSH ONE (14:48)
[2020-09-03 14:49] LABS: BLOOD UREA NITROGEN,BUN 7 mg/dL (7.0-18.0); CHLORIDE,CL 112 mmol/L (98-107); GLUCOSE RANDOM 119 mg/dL (74-106); POTASSIUM,K 3.9 mmol/L (3.5-5.1); SODIUM,NA 145 mmol/L (136-145)
[2020-09-03 14:51] LABS: ACETAMINOPHEN <2.0 ug/mL
[2020-09-03] MEDS ORDERED: Iopamidol 755 MG/ML 500 ML Multipack Bottle IVPUSH ONE (15:06)
--- NOTE | 2020-09-03 15:06 | CT ---
Indication: Poly trauma, altered mental status Technique: Volumetric multidetector CT images of the head were obtained without the administration of low osmolar intravenous contrast. Comparison: None available Findings: There is no intra-axial or extra-axial fluid collection. There is no mass effect or midline shift. There is age-related cortical atrophy with mild sulcal widening and ex vacuo dilatation of the lateral ventricles. There are chronic small vessel disease changes in the subcortical and periventricular white matter without lost dailey-white differentiation. The orbits and their contents are grossly within normal limits. There is demonstration of a frontal subgaleal soft tissue hematoma and periorbital soft tissue swelling. There is minimal mucosal thickening within the paranasal sinuses. The mastoid air cells are well aerated. Impression: Frontal subgaleal soft tissue swelling without evidence of acute intracranial abnormality. Please note that all CT scans at this facility use dose modulation, iterative reconstruction, and/or weight-based dosing when appropriate to reduce radiation dose to as low as reasonably achievable. Dictated by Shaheed Black MD @ Sep 03 2020 3:00PM Signed by Dr. Shaheed Black @ Sep 03 2020 3:04PM
--- NOTE | 2020-09-03 15:12 | CT ---
Indication: Poly trauma, altered mental status Technique: Volumetric multidetector CT images of the cervical spine were obtained without the administration of IV contrast. Comparison: None available. Findings: The cervical vertebral body heights are grossly maintained. There is straightening of the normal cervical lordosis. There is marked degenerative disc disease change with disc height loss and extensive anterior osteophytosis as well as ossification of the anterior longitudinal ligament. There is likely moderate spinal canal narrowing at the C5-C6 and C6-C7 levels. There is moderate to severe facet arthrosis. There is no evidence of displaced fracture or dislocation. There is mild biapical pleural thickening seen within the partially visualized lung apices. Otherwise the paraspinous soft tissues are grossly unremarkable. Impression: Moderate degenerative changes of the cervical spine without evidence of displaced fracture. Please note that all CT scans at this facility use dose modulation, iterative reconstruction, and/or weight-based dosing when appropriate to reduce radiation dose to as low as reasonably achievable. Dictated by Shaheed Black MD @ Sep 03 2020 3:00PM Signed by Dr. Shaheed Black @ Sep 03 2020 3:10PM
--- NOTE | 2020-09-03 15:30 | CT ---
INDICATION: Poly trauma, altered mental status COMPARISON: None TECHNIQUE: Contrast enhanced axial CT imaging through the chest. 100 mL Isovue 370 contrast agent was administered intravenously. Sagittal and coronal reconstructions are provided. FINDINGS: There is no displaced rib fracture or chest wall hematoma. There is no pleural effusion, pneumothorax, or pulmonary contusion. There is [id number] dependent and basilar lung atelectasis bilaterally. The heart is nonenlarged. There is no pericardial effusion. There is normal caliber of the main pulmonary artery and thoracic aorta. There is no mediastinal hematoma. Endotracheal tube terminates in the proximal right mainstem bronchus. IMPRESSION: 1. No acute traumatic findings demonstrated in the chest. 2. Right mainstem bronchus intubation. Endotracheal tube should be retracted by about 3 cm. Follow-up radiographs are recommended following tube readjustment. Please note that all CT scans at this facility use dose modulation, iterative reconstruction, and/or weight-based dosing when appropriate to reduce radiation dose to as low as reasonably achievable. Dictated by Christine Grajeda MD @ Sep 03 2020 3:20PM Signed by Dr. Christine Grajeda @ Sep 03 2020 3:29PM
--- NOTE | 2020-09-03 15:41 | CT ---
Indication: Poly trauma, altered mental status, found down Technique: Axial, coronal, and sagittal CT images through the thoracic spine reconstructed from concurrent CT chest with contrast. Comparison: None Findings: The thoracic vertebral bodies are normal in height. There is normal spinal alignment. No fracture is demonstrated. There is no prevertebral edema. Multilevel degenerative changes are noted with prominent bridging marginal osteophytes at multiple levels, more pronounced on the right. There is no significant narrowing of the spinal canal and neural foramina. The paraspinal musculature is unremarkable. Impression: No acute fracture or traumatic malalignment. Please note that all CT scans at this facility use dose modulation, iterative reconstruction, and/or weight-based dosing when appropriate to reduce radiation dose to as low as reasonably achievable. Dictated by Christine Grajeda MD @ Sep 03 2020 3:19PM Signed by Dr. Chirstine Grajeda @ Sep 03 2020 3:40PM
--- NOTE | 2020-09-03 15:49 | CT ---
Indication: Poly trauma, altered mental status Technique: Contrast enhanced axial CT imaging through the abdomen and pelvis. 100 mL Isovue 370 contrast agent was administered intravenously. Sagittal and coronal reconstructions are provided. Comparison: None Findings: There is no significant abnormality of the liver, gallbladder, spleen, pancreas, adrenal glands, and kidneys. Focal cortical thinning is noted in the medial right upper pole. The portal vein is patent. There is scattered atherosclerotic disease of the abdominal aorta without stenosis or aneurysm. No lymphadenopathy is demonstrated in the abdomen and pelvis. Gastric tube terminates in the distal stomach. There is no bowel wall thickening or distention. The appendix is noninflamed. The colon is unremarkable. There is no mesenteric edema. There is no pneumoperitoneum. There is no evidence of acute pelvic fracture. There is no pelvic hematoma. The urinary bladder is intact. Impression: No acute traumatic findings demonstrated in the abdomen and pelvis. Please note that all CT scans at this facility use dose modulation, iterative reconstruction, and/or weight-based dosing when appropriate to reduce radiation dose to as low as reasonably achievable. Dictated by Christine Grajeda MD @ Sep 03 2020 3:20PM Signed by Dr. Christine Grajeda @ Sep 03 2020 3:48PM
--- NOTE | 2020-09-03 15:58 | CT ---
Indication: Poly trauma, found down, altered mental status Technique: Axial, coronal, and sagittal CT images through the lumbar spine reconstructed from concurrent CT abdomen pelvis contrast. Comparison: None Findings: The lumbar vertebral bodies are normal in height. There is normal spinal alignment. No fracture is demonstrated. There is no perivertebral edema. There is no significant degenerative disc height loss. Degenerative facet disease is noted bilaterally at L3-4 through L5-S1. There is no significant narrowing of the spinal canal and neural foramina. The paraspinal musculature is unremarkable. Impression: No acute fracture or traumatic malalignment. Please note that all CT scans at this facility use dose modulation, iterative reconstruction, and/or weight-based dosing when appropriate to reduce radiation dose to as low as reasonably achievable. Dictated by Christine Grajeda MD @ Sep 03 2020 3:19PM Signed by Dr. Christine Grajeda @ Sep 03 2020 3:56PM
== END 2020-09-03 15:06 ==
LOC: MW.ED 13:50
DX: G93.40 Encephalopathy, unspecified (principal); R40.2442 Other coma, without documented Glasgow coma scale score, or with partial score reported, at arrival to emergency department; S00.83XA Contusion of other part of head, initial encounter; F31.9 Bipolar disorder, unspecified; E66.9 Obesity, unspecified; E78.5 Hyperlipidemia, unspecified; Z68.34 Body mass index [BMI] 34.0-34.9, adult; Z86.73 Personal history of transient ischemic attack (TIA), and cerebral infarction without residual deficits; E78.00 Pure hypercholesterolemia, unspecified; Z79.84 Long term (current) use of oral hypoglycemic drugs; Z79.899 Other long term (current) drug therapy; W19.XXXA Unspecified fall, initial encounter
CPT/HCPCS: 31500; 36415; 36680; 43752; 51702; 70450; 71045; 71260; 72125; 74177; 80053; 80305; 80307; 82550; 83605; 84484; 84703; 85025; 85610; 85730; 86900; 86901; 93005; 99152; 99153; 99291; G0390; J2704; J3490; Q9967; 72128-26; 72131-26; 93010

== ENCOUNTER 2020-10-06 12:16 | Emergency (ER) | payer MEDICARE, MEDICAID ==
--- NOTE | 2020-10-06 13:11 | EDM.PDOC ---
ED HPI GENERAL MEDICAL PROBLEM - General Chief Complaint: Behavioral/Psych Stated Complaint: MED CLEARANCE Time Seen by Provider: 10/06/20 12:30 - History of Present Illness INITIAL COMMENTS - FREE TEXT/NARRATIVE: History of present illness: The patient has no medical complaint. She is here for medical clearance. She had expressed suicidal intent. She has prior attempts. She is in route to be placed in [place] observation facility. The social worker psychiatric from [place] is here with the patient. The patient says she was feeling suicidal and understands that she is going to voluntarily be kept for observation in the [facility]. [] Review of systems: As per history of present illness and below otherwise all systems reviewed and negative. Past medical history: As per history of present illness and as reviewed below otherwise noncontributory. Surgical history: As per history of present illness and as reviewed below otherwise noncontributory. Social history: No reported history of drug or alcohol abuse. Family history: As per history of present illness and as reviewed below otherwise noncontributory. Physical exam: Constitutional - well developed, well-nourished and in no acute distress HEENT - normocephalic, no evidence of trauma - external nose and mouth normal - no mass in neck and no JVD - mucosae moist EYES - full EOM, PERRL, no icterus - no evidence of inflammation, injection, or drainage Respiratory - no respiratory distress, equal bilateral expansion, lungs clear to auscultation and no abnormal lung sounds Cardiovascular - Regular Rhythm with S1 and S2 appreciated and no murmur, gallop or rub. GI - abdomen soft without distension or organomegaly - normal bowel sounds - no guard or rebound Musculoskeletal no gross deformity of long bones or joints - no tenderness, swelling or edema Neurologic - Alert and oriented times four - CN II-XII grossly intact - motor sensory and coordination symmetrically normal Psychiatric - appropriate mood and affect with normal thought content Hematologic - No petechiae or purpura - mucosa appropriate color and sclera not pale - normal nail bed color and refill Integument -well-healed vertical scars from prior abrasions on the volar forearms. No rash or evidence of trauma - normal turgor Diagnostics: [] Therapeutics: [] Impression: [] Plan: [] Definitive disposition and diagnosis as appropriate pending reevaluation and review of above. - Related Data Allergies Allergy/AdvReac Type Severity Reaction Status Date / Time mold Allergy Other Verified 10/06/20 12:57 Home Meds: Home Meds [place] Carbonate 450 mg PO BEDTIME 08/09/20 [History] Simvastatin 10 mg PO BEDTIME 08/09/20 [History] metFORMIN [Glucophage XR] 250 mg PO DAILY 08/09/20 [History] Divalproex Sodium [Depakote] 500 mg PO BID 10/06/20 [History] buPROPion [Wellbutrin] 150 mg PO DAILY 10/06/20 [History] traZODone HCl [Trazodone HCl] 100 mg PO DAILY 10/06/20 [History] Past Medical History HEENT History: Reports: Allergic Rhinitis, Other (See Below) Other HEENT History: myopia. astigmatism Cardiovascular History: Reports: High Cholesterol Respiratory History: Reports: Sleep Apnea Other Respiratory History: CPAP @ night Gastrointestinal History: Reports: Chronic Constipation Genitourinary History: Reports: Other (See Below) Other Genitourinary History: urge incontinence. nonorganic enuresis COOPERATIVE EXTENSION AGENT History: Reports: None Musculoskeletal History: Reports: Back Pain, Chronic, Other (See Below) Other Musculoskeletal History: DJD. tendinitis of right shoulder. left achilles tendinitis. hip pain Neurological History: Reports: Other (See Below) Other Neuro History: memory loss Psychiatric History: Reports: Bipolar, Depression, PTSD, Other (See Below) Other Psychiatric History: Borderline Personality Disorder. Dissociative Identity Disorder. social maladjustment Endocrine/Metabolic History: Reports: Diabetes, Type II, Obesity/BMI 30+ Insulin Pump Model and Conciliation Court Judge: None Hematologic History: Reports: None Immunologic History: Reports: None Oncologic (Cancer) History: Reports: None Dermatologic History: Reports: None - Infectious Disease History Infectious Disease History: Reports: Chicken Pox, Measles, Mumps - Past Surgical History Head Surgeries/Procedures: Reports: None Social & Family History - Family History Family Medical History: No Pertinent Family History GI: Reports: Cirrhosis Endocrine/Metabolic: Reports: Diabetes, type II - Tobacco Use Tobacco Use Status *Q: Never Tobacco User - Caffeine Use Caffeine Use: Reports: Soda - Recreational Drug Use Recreational Drug Use: No - Living Situation & Occupation Living situation: Reports: Single, Alone Occupation: Disabled ED ROS GENERAL - Review of Systems Review Of Systems: Comprehensive ROS is negative, except as noted in HPI. ED EXAM, GENERAL - Physical Exam Exam: See Below Free Text/Narrative:: My physical exam is in the HPI #1 Interpretation EKG Interpretation Comments: KG done 1:24 PM sinus rhythm heart rate 76 NM interval 140 [place] II QRS S duration [address] and T are within normal limits except for low voltage in the precordial leads. Compared to prior there is no significant change except a little change in T morphology in the inferior leads but this is likely lead placement. Impression no acute injury Course - Vital Signs Text/Narrative:: 1414 hrs. the patient remained cooperative during the stay. Released to the ED transported to go to [place]. Last Recorded V/S: Last Vital Signs Temp 36.3 C 10/06/20 13:00 Pulse 78 10/06/20 13:00 Resp 16 10/06/20 13:00 BP 116/64 10/06/20 13:00 Pulse Ox 97 10/06/20 13:00 - Orders/Labs/Meds Orders: Active Orders 24 hr Category Date Time Status EKG 12 Lead [EKG Documentation Completion] [RC] STAT Care 10/06/20 13:08 Active DRUG SCREEN, URINE [URCHEM] Stat Lab 10/06/20 13:07 Ordered HCG QUALITATIVE,URINE [URCHEM] Stat Lab 10/06/20 13:07 Ordered UA W/CANDE RFLX IF INDICATED [URIN] Stat Lab 10/06/20 13:07 Ordered Labs: Laboratory Tests 10/06/20 10/06/20 Range/Units 13:22 13:22 WBC 5.05 (4.0-11.0) K/uL RBC 4.24 L (4.30-5.90) M/uL Hgb 13.3 (12.0-16.0) g/dL Hct 38.2 (36.0-46.0) % MCV 90.1 (80.0-98.0) fL MCH 31.4 (27.0-32.0) pg MCHC 34.8 (31.0-37.0) g/dL RDW Std Deviation 48.6 (28.0-62.0) fl RDW Coeff of Jason 15 (11.0-15.0) % Plt Count 128 L (150-400) K/uL MPV 9.60 (7.40-12.00) fL Neut % (Auto) 49.3 (48.0-80.0) % Lymph % (Auto) 35.6 (16.0-40.0) % Boyd % (Auto) 9.9 (0.0-15.0) % Eos % (Auto) 4.8 (0.0-7.0) % Baso % (Auto) 0.4 (0.0-1.5) % Neut # (Auto) 2.5 (1.4-5.7) K/uL Lymph # (Auto) 1.8 (0.6-2.4) K/uL Boyd # (Auto) 0.5 (0.0-0.8) K/uL Eos # (Auto) 0.2 (0.0-0.7) K/uL Baso # (Auto) 0.0 (0.0-0.1) K/uL Nucleated RBC % 0.0 /100WBC Nucleated RBCs # 0 K/uL Sodium 140 (136-145) mmol/L Potassium 4.5 (3.5-5.1) mmol/L Chloride 105 (98-107) mmol/L Carbon Dioxide 26.3 (21.0-32.0) mmol/L BUN 15 (7.0-18.0) mg/dL Creatinine 1.0 (0.6-1.0) mg/dL Est Cr Clr Drug Dosing 46.13 mL/min Estimated GFR (MDRD) 56.2 ml/min Glucose 103 (74-106) mg/dL Calcium 9.3 (8.5-10.1) mg/dL Total Bilirubin 0.4 (0.2-1.0) mg/dL AST 17 (15-37) IU/L ALT 16 (14-63) IU/L Alkaline Phosphatase 58 (46-116) U/L Total Protein 7.1 (6.4-8.2) g/dL Albumin 3.6 (3.4-5.0) g/dL Globulin 3.5 (2.6-4.0) g/dL Albumin/Globulin Ratio 1.0 (0.9-1.6) Salicylates 1.2 (0-20) mg/dL Acetaminophen <2.0 ug/mL Ethyl Alcohol < 3.0 mg/dL Departure - Departure Time of Disposition: 14:14 Disposition: Home, Self-Care 01 Condition: Good Clinical Impression: Depressive disorder - Discharge Information Instructions: Living With Depression Referrals: PCP,None [Primary Care Provider] - Forms: ED Department Discharge Additional Instructions: [facility] Address: [address] [place] [address] [place] [address] Hours: walk in 9 AM M-F The following information is given to patients seen in the emergency department who are being discharged to home. This information is to outline your options for follow-up care. We provide all patients seen in our emergency department with a follow-up referral. The need for follow-up, as well as the timing and circumstances, are variable depending upon the specifics of your emergency department visit. If you don't have a primary care physician on staff, we will provide you with a referral. We always advise you to contact your personal physician following an emergency department visit to inform them of the circumstance of the visit and for follow-up with them and/or the need for any referrals to a consulting specialist. The emergency department will also refer you to a specialist when appropriate. This referral assures that you have the opportunity for follow-up care with a specialist. All of these measure are taken in an effort to provide you with optimal care, which includes your follow-up. Under all circumstances we always encourage you to contact your private physician who remains a resource for coordinating your care. When calling for follow-up care, please make the office aware that this follow-up is from your recent emergency room visit. If for any reason you are refused follow-up, please contact the [facility] Emergency Department at and asked to speak to the emergency department charge nurse. Sepsis Event Note (ED) - Evaluation Sepsis Screening Result: No Definite Risk - Focused Exam Vital Signs: Vital Signs Temp Pulse Resp BP Pulse Ox 10/06/20 13:00 36.3 C 78 16 116/64 97 - My Orders Last 24 Hours: My Active Orders 10/06/20 13:07 DRUG SCREEN, URINE [URCHEM] Stat HCG QUALITATIVE,URINE [URCHEM] Stat UA W/CANDE RFLX IF INDICATED [URIN] Stat 10/06/20 13:08 EKG 12 Lead [EKG Documentation Completion] [RC] STAT - Assessment/Plan Last 24 Hours: My Active Orders 10/06/20 13:07 DRUG SCREEN, URINE [URCHEM] Stat HCG QUALITATIVE,URINE [URCHEM] Stat UA W/CANDE RFLX IF INDICATED [URIN] Stat 10/06/20 13:08 EKG 12 Lead [EKG Documentation Completion] [RC] STAT
[2020-10-06 13:52] LABS: BLOOD UREA NITROGEN,BUN 15 mg/dL (7.0-18.0); CARBON DIOXIDE,CO2 26.3 mmol/L (21.0-32.0); CHLORIDE,CL 105 mmol/L (98-107); GLUCOSE RANDOM 103 mg/dL (74-106); POTASSIUM,K 4.5 mmol/L (3.5-5.1); SODIUM,NA 140 mmol/L (136-145)
[2020-10-06 13:54] LABS: ACETAMINOPHEN <2.0 ug/mL
== END 2020-10-06 14:30 | disposition home or self-care (01) ==
LOC: MW.ED 12:16
DX: F32.9 Major depressive disorder, single episode, unspecified (principal); E78.00 Pure hypercholesterolemia, unspecified; E11.9 Type 2 diabetes mellitus without complications; E66.9 Obesity, unspecified; Z68.41 Body mass index [BMI] 40.0-44.9, adult; Z91.048 Other nonmedicinal substance allergy status; Z79.899 Other long term (current) drug therapy
CPT/HCPCS: 36415; 80053; 80305-QW; 80307; 81001; 85025; 93005; 93010; 99284; 99285-25

== ENCOUNTER 2020-10-17 06:51 | Day surgery (SDC) | payer MEDICARE, MEDICAID ==
[~2020-10-17 06:51] MED LIST: Lactated Ringers 1,000 ML IV SCH
[2020-10-17] MEDS ORDERED: Propofol 200 MG/20 ML SDV ONE (07:08)
[2020-10-17] MEDS ORDERED: Midazolam 1 MG/ML 2 ML SDV ONE (07:08)
[2020-10-17] MEDS ORDERED: fentaNYL 250 MCG/5 ML SDV ONE (07:08)
[2020-10-17] MEDS ORDERED: Ondansetron 4 MG/2 ML SDV ONE (07:08)
[2020-10-17] MEDS ORDERED: Lidocaine 2% 5 ML SDV ONE (07:08)
[2020-10-17] MEDS ORDERED: Sodium Chloride 0.9% 20 ML ONE (07:10)
[2020-10-17] MEDS ORDERED: ceFAZolin 1 GM Vial ONE (07:10)
[2020-10-17] MEDS ORDERED: Bupivacaine 0.5% 30 ML SDV ONE (07:11)
[2020-10-17] MEDS ORDERED: Albuterol 0.083% 2.5 MG/3 ML Neb Soln NEB PRN (07:31)
[2020-10-17] MEDS ORDERED: 50% Dextrose in Water 50 ML Syringe IVPUSH PRN (07:31)
[2020-10-17] MEDS ORDERED: fentaNYL 100 MCG/2 ML SDV IVPUSH PRN (07:31)
[2020-10-17] MEDS ORDERED: Naloxone 0.4 MG/ML Syringe IVPUSH PRN (07:31)
[2020-10-17] MEDS ORDERED: Atropine 0.1 MG/ML 10 ML Syringe IVPUSH PRN ×2 (07:31)
[2020-10-17] MEDS ORDERED: EPINEPHrine 1:10,000 1 MG/10 ML Syringe IVPUSH PRN (07:31)
--- NOTE | 2020-10-17 07:36 | PCM.PREANE ---
Preanesthetic Assessment - Anesthesia/Transfusion/Family Hx Anesthesia History: Prior Anesthesia Without Reaction Transfusion History: No Prior Transfusion(s) - Review of Systems General: No Symptoms Pulmonary: No Symptoms Cardiovascular: No Symptoms Gastrointestinal: No Symptoms Neurological: No Symptoms Other: Reports: None - Physical Assessment NPO Status Date: 10/16/20 Vital Signs: Last Vital Signs Temp 97.2 F 10/17/20 07:11 Pulse 67 10/17/20 07:11 Resp 16 10/17/20 07:11 BP 117/56 L 10/17/20 07:11 Pulse Ox 98 10/17/20 07:11 Height: 5 ft 2 in Weight: 99.79 kg ASA Class: 3 Mental Status: Alert & Oriented x3 Airway Class: Mallampati = 2 Dentition: Reports: Missing Tooth/Teeth ROM/Head Extension: Full Lungs: Clear to Auscultation, Normal Respiratory Effort Cardiovascular: Regular Rate, Regular Rhythm - Allergies Allergies/Adverse Reactions: Allergies Allergy/AdvReac Type Severity Reaction Status Date / Time mold Allergy according Verified 10/11/20 09:48 to allergy testing - Blood Blood Available: No - Anesthesia Plan Pre-Op Medication Ordered: None - Acknowledgements Anesthesia Type Planned: General Anesthesia Pt an Appropriate Candidate for the Planned Anesthesia: Yes Alternatives and Risks of Anesthesia Discussed w Pt/Guardian: Yes Pt/Guardian Understands and Agrees with Anesthesia Plan: Yes Additional Comments: PMH: antoni- has cpap but doesnt use it, will agree to use it this week, DM2, anx/dep, bipolar disorder PLAN: ga/lma PreAnesthesia Questionnaire HEENT History: Reports: Allergic Rhinitis, Other (See Below) Other HEENT History: myopia. astigmatism Cardiovascular History: Reports: High Cholesterol Respiratory History: Reports: Sleep Apnea Other Respiratory History: CPAP @ night Gastrointestinal History: Reports: Chronic Constipation Genitourinary History: Reports: Other (See Below) Other Genitourinary History: urge incontinence. nonorganic enuresis STATIONS SUPERINTENDENT History: Reports: None Musculoskeletal History: Reports: Back Pain, Chronic, Other (See Below) Other Musculoskeletal History: DJD. tendinitis of right shoulder. left achilles tendinitis. hip pain Neurological History: Reports: Other (See Below) Other Neuro History: memory loss Psychiatric History: Reports: Bipolar, Depression, PTSD, Other (See Below) Other Psychiatric History: Borderline Personality Disorder. Dissociative Identity Disorder. social maladjustment Endocrine/Metabolic History: Reports: Diabetes, Type II, Obesity/BMI 30+ Hematologic History: Reports: None Immunologic History: Reports: None Oncologic (Cancer) History: Reports: None Dermatologic History: Reports: None - Infectious Disease History Infectious Disease History: Reports: Chicken Pox, Measles, Mumps - Past Surgical History Head Surgeries/Procedures: Reports: None HEENT Surgical History: Reports: None Cardiovascular Surgical History: Reports: None Respiratory Surgical History: Reports: None GI Surgical History: Reports: None Female Surgical History: Reports: Hysterectomy, Salpingo-Oophorectomy Endocrine Surgical History: Reports: None Neurological Surgical History: Reports: None Musculoskeletal Surgical History: Reports: Arthroscopic Knee, Shoulder Surgery Other Musculoskeletal Surgeries/Procedures:: Rt RTCR, rt knee surgery x2 Oncologic Surgical History: Reports: None Dermatological Surgical History: Reports: None - SUBSTANCE USE Tobacco Use Status *Q: Never Tobacco User - HOME MEDS Home Medications: Home Meds [place] Carbonate 450 mg PO BEDTIME 08/09/20 [History] Simvastatin 10 mg PO BEDTIME 08/09/20 [History] metFORMIN [Glucophage XR] 250 mg PO BID 08/09/20 [History] Divalproex Sodium [Depakote] 500 mg PO BID 10/06/20 [History] Aripiprazole Lauroxil [Aristada] 1 injection IM ASDIRECTED 10/11/20 [History] buPROPion HCL [Wellbutrin Xl] 150 mg PO DAILY 10/11/20 [History] - CURRENT (IN HOUSE) MEDS Current Meds: Current Medications Albuterol (Proventil Neb Soln) 2.5 mg NEB ONETIME PRN PRN Reason: Wheezing Atropine Sulfate (Atropine 0.1 Mg/Ml) 0.5 mg IVPUSH ASDIRECTED PRN PRN Reason: Hypo-perfusion Atropine Sulfate (Atropine 0.1 Mg/Ml) 1 mg IVPUSH ASDIRECTED PRN PRN Reason: Hypo-Perfusion Dextrose/Water (Dextrose 50% In Water) 50 ml IVPUSH ASDIRECTED PRN PRN Reason: Hypoglycemia Epinephrine HCl (Epinephrine 1:10,000) 1 mg IVPUSH ASDIRECTED PRN PRN Reason: ACLS Guidelines Fentanyl (Sublimaze) 50 - 100 mcg IVPUSH Q5M PRN PRN Reason: Pain Lactated Ringer's (Ringers, Lactated) 1,000 mls @ 100 mls/hr IV ASDIRECTED TREVIN Last Admin: 10/17/20 07:18 Dose: 100 mls/hr Documented by: Cefazolin Sodium/Dextrose 2 gm (/ Premix) 50 mls @ 100 mls/hr IV ONCALL TREVIN Naloxone HCl (Narcan) 0.1 mg IVPUSH ASDIRECTED PRN PRN Reason: Respiratory Depression Discontinued Medications Bupivacaine HCl (Marcaine 0.5%) Confirm Administered Dose 30 ml .ROUTE .STK-MED ONE Stop: 10/17/20 07:12 Cefazolin Sodium (Ancef) Confirm Administered Dose 2 gm .ROUTE .STK-MED ONE Stop: 10/17/20 07:11 Fentanyl (Sublimaze) Confirm Administered Dose 250 mcg .ROUTE .STK-MED ONE Stop: 10/17/20 07:09 Sodium Chloride (Normal Saline) Confirm Administered Dose 20 mls @ as directed .ROUTE .STK-MED ONE Stop: 10/17/20 07:11 Lidocaine (Xylocaine-Mpf 2%) Confirm Administered Dose 5 ml .ROUTE .STK-MED ONE Stop: 10/17/20 07:09 Midazolam HCl (Versed 1 Mg/Ml) Confirm Administered Dose 2 mg .ROUTE .STK-MED ONE Stop: 10/17/20 07:09 Ondansetron HCl (Zofran) Confirm Administered Dose 4 mg .ROUTE .STK-MED ONE Stop: 10/17/20 07:09 Propofol (Diprivan 20 Ml) Confirm Administered Dose 200 mg .ROUTE .STK-MED ONE Stop: 10/17/20 07:09
[2020-10-17] MEDS ORDERED: ceFAZolin 2 GM in Premix Bag 1 BAG IV SCH (08:00)
[2020-10-17] MEDS ORDERED: Glycopyrrolate 0.2 MG/ML SDV ONE (08:08)
[2020-10-17] MEDS ORDERED: ePHEDrine 50 MG/ML SDV ONE (08:08)
--- NOTE | 2020-10-17 09:28 | PCM.OPNOTE ---
- General Post-Op/Procedure Note Date of Surgery/Procedure: 10/17/20 Operative Procedure(s): left ulnar nerve transposition Pre Op Diagnosis: left cubital tunnel syndrome Post-Op Diagnosis: Same Anesthesia Technique: General LMA Primary Surgeon: Arslan Wade Package Clerk: Esthela Centeno in mLs: 5 Complications: None Condition: Good
--- NOTE | 2020-10-17 10:07 | PCM.POSTAN ---
POST ANESTHESIA ASSESSMENT - MENTAL STATUS Mental Status: Alert, Oriented - VITAL SIGNS Vital Signs: Last Vital Signs Temp 97.2 F 10/17/20 09:27 Pulse 78 10/17/20 09:56 Resp 12 10/17/20 09:56 BP 111/59 L 10/17/20 09:56 Pulse Ox 92 L 10/17/20 09:56 - RESPIRATORY Respiratory Status: Respiratory Rate WNL, Airway Patent, O2 Saturation Stable - CARDIOVASCULAR CV Status: Pulse Rate WNL, Blood Pressure Stable - GASTROINTESTINAL GI Status: No Symptoms - POST OP HYDRATION Hydration Status: Adequate & Stable
[2020-10-17] MEDS ORDERED: Acetaminophen/oxyCODONE 325-5 MG Tab PO PRN (10:25)
[2020-10-17] MEDS ORDERED: Acetaminophen/oxyCODONE 325-5 MG Tab ONE (10:30)
--- NOTE | 2020-10-17 10:48 | OR ---
SURGEON: Arslan Wade DATE OF PROCEDURE: 10/17/2020 PREOPERATIVE DIAGNOSIS: Left cubital tunnel syndrome. POSTOPERATIVE DIAGNOSIS: Left cubital tunnel syndrome. PROCEDURE: Left ulnar nerve transposition. PRIMARY SURGEON: Arslan Wade DO. [place]YWOOD LAYUP LINE CORE LAYER: RASHEEDA Bledsoe ROLE OF [place]YWOOD LAYUP LINE CORE LAYER: Nurse practitioner, RASHEEDA Bledsoe, played an essential role in assisting in this case, helping to position the patient, retract structures as needed, as well as suturing and cutting sutures as indicated. Her presence improved patient's safety and decreased operative time. ANESTHESIA: General LMA. FLUID: Lactated Ringer's solution. ESTIMATED BLOOD LOSS: 5 mL. COMPLICATIONS: None. SPECIMEN: None. DISCHARGE DISPOSITION: Stable to PACU. HISTORY AND INDICATIONS FOR THE PROCEDURE: The patient was seen preoperatively by myself in the clinic. She had already had an EMG indicating compression of the ulnar nerve at the elbow. Risks and goals of the procedure were explained to the patient. Informed consent was obtained. DETAILS OF PROCEDURE: The patient was seen preoperatively by myself and the Anesthesia staff in the preoperative holding area where the operative site was marked. She was brought to the operative suite by Anesthesia staff where general anesthesia was administered. All extremities were found to be well padded. Left upper extremity was then prepped and draped in a sterile manner. Time-out was called identifying the correct patient, the correct procedure, the correct site, and that antibiotics had been given within appropriate period of time. A sterile well-padded tourniquet was placed on the left arm. The left upper extremity was exsanguinated. Tourniquet was raised to 200 mmHg for 54 minutes and let down after closure. 8 cm incision centered on the medial half way between the medial epicondyle and the olecranon was then made longitudinally through the skin. I then used bipolar electrocautery to control any bleeding. I then used Metzenbaum's for dissection. The medial antebrachial cutaneous nerve was identified approximately 3.5 cm proximally and preserved. The subcutaneous fat was then brought away from the fascia. The intermuscular septum proximally was identified. This was dissected through using Shaylee and then the ulnar nerve was identified and this was brought both proximally and distally at the intermuscular septum. The [place] were used and sharp knife to develop a flap, so 2 flaps were done for a very loose flap closure. The ulnar nerve was identified distally. I then very carefully starting from proximal to distally through the anterior edge of the fascia with Metzenbaum's very carefully dissected out of my ulnar nerve. Motor branches were identified and preserved. This was carried out distally. I then used bipolar electrocautery to remove the muscle from my distal flap. I very carefully mobilized both proximally and distally the ulnar nerve so it formed a straight line anteriorly without tethering. After this had been accomplished, I then used my flaps with [id number] sutures to tie the flap loosely over the ulnar nerve. I then closed the muscle underneath the ulnar nerve distally to make sure that would not flap up and cause constrictor. I then irrigated copiously with saline. At this point, I then again used [place] and then checked proximally to make sure that we had no constrictions proximally, and then ranged the elbow to make sure that there was no compression of the ulnar nerve throughout range of motion. After this had been accomplished, I placed approximately 3 deep subcutaneous sutures as the patient had a larger body habitus, and then closed subcutaneously with 2-0 Vicryl sutures, followed by skin brayden, followed by Betadine-soaked Adaptic, local anesthetic, and a sterile dressing, followed by Taiwo wrap and then placed the patient into a sling. The patient was allowed to awaken from general anesthesia and taken to the PACU in stable condition. [id number] / MODL /[id number]
--- NOTE | 2020-10-17 10:59 | PCM48HPAN ---
Post Anesthesia Note - EVALUATION WITHIN 48HRS OF ANESTHETIC Vital Signs in Normal Range: Yes Patient Participated in Evaluation: Yes Respiratory Function Stable: Yes Airway Patent: Yes Cardiovascular Function Stable: Yes Hydration Status Stable: Yes Pain Control Satisfactory: Yes Nausea and Vomiting Control Satisfactory: Yes Mental Status Recovered: Yes Vital Signs: Last Vital Signs Temp 97.3 F 10/17/20 10:00 Pulse 69 10/17/20 10:45 Resp 14 10/17/20 10:45 BP 130/59 L 10/17/20 10:45 Pulse Ox 95 10/17/20 10:45
== END 2020-10-17 11:22 | disposition home or self-care (01) ==
LOC: MW.SDS 06:51
PROVIDERS: ATTEND Orthopaedic Surgery
DX: G56.22 Lesion of ulnar nerve, left upper limb (principal); E11.9 Type 2 diabetes mellitus without complications; E66.9 Obesity, unspecified; Z87.892 Personal history of anaphylaxis; Z79.899 Other long term (current) drug therapy; Z68.41 Body mass index [BMI] 40.0-44.9, adult
CPT/HCPCS: 64718; 82962; A9270; J0690; J2001; J2250; J2405; J2704; J3010; J3490; J7120

== ENCOUNTER 2022-01-28 09:22 | Observation (INO) | payer MEDICARE, MEDICAID ==
[2022-01-28] MEDS ORDERED: Ibuprofen 600 MG Tab PO ONE (10:43)
[2022-01-28 11:17] LABS: ACETAMINOPHEN <2.0 ug/mL; BLOOD UREA NITROGEN,BUN 12 mg/dL (7.0-18.0); CARBON DIOXIDE,CO2 27.1 mmol/L (21.0-32.0); CHLORIDE,CL 104 mmol/L (98-107); GLUCOSE RANDOM 111 mg/dL (74-106); POTASSIUM,K 4.8 mmol/L (3.5-5.1); SODIUM,NA 140 mmol/L (136-145)
[2022-01-28] MEDS ORDERED: traZODone 50 MG Tab PO PRN (12:55)
[2022-01-28] MEDS: QUEtiapine 25 MG Tab PO SCH ×2 (14:13→21:08)
[2022-01-28] MEDS ORDERED: Venlafaxine 75 MG Cap.ER PO SCH (21:00)
[2022-01-28] MEDS ORDERED: Citalopram 20 MG Tab PO SCH ×2 (21:00)
[2022-01-28] MEDS: busPIRone 5 MG Tab PO SCH (21:10)
[2022-01-29] MEDS: QUEtiapine 25 MG Tab PO SCH ×2 (05:38→13:34)
[2022-01-29] MEDS: busPIRone 5 MG Tab PO SCH (08:31)
[2022-01-29] MEDS ORDERED: ARIPiprazole 10 MG Tab PO SCH (09:00)
[2022-01-29] MEDS ORDERED: Modafinil 100 MG Tab PO SCH (09:00)
[2022-01-29] MEDS ORDERED: ARIPiprazole 10 MG Tab PO ONE (20:00)
[2022-01-29] MEDS: Ibuprofen 400 MG Tab PO PRN (20:17)
[2022-01-29] MEDS: Prazosin 1 MG Cap PO SCH (20:43)
[2022-01-30] MEDS: Ibuprofen 400 MG Tab PO PRN ×3 (03:59→20:50)
[2022-01-30] MEDS: buPROPion 100 MG Tab PO SCH ×2 (09:17→20:51)
[2022-01-30] MEDS ORDERED: Ketorolac 30 MG/ML SDV IVPUSH ONE (14:31)
[2022-01-30] MEDS: ARIPiprazole 10 MG Tab PO SCH (20:49)
[2022-01-30] MEDS: Prazosin 1 MG Cap PO SCH (20:51)
[2022-01-31] MEDS: Ibuprofen 400 MG Tab PO PRN (06:01)
[2022-01-31] MEDS: buPROPion 100 MG Tab PO SCH ×2 (09:06→20:21)
[2022-01-31] MEDS ORDERED: Melatonin 3 MG Tab PO PRN (09:11)
[2022-01-31] MEDS: ARIPiprazole 10 MG Tab PO SCH (20:21)
[2022-01-31] MEDS: Prazosin 1 MG Cap PO SCH (20:21)
[2022-02-01] MEDS: buPROPion 100 MG Tab PO SCH (09:25)
[2022-02-01] MEDS: Ibuprofen 400 MG Tab PO PRN (11:02)
== END 2022-02-01 12:30 ==
LOC: MW.ED 09:22 → MW.MS 16:39
PROVIDERS: ADMIT Student in an Organized Health Care Education/Training Program; ATTEND Student in an Organized Health Care Education/Training Program
DX: R45.851 Suicidal ideations (principal); F31.9 Bipolar disorder, unspecified; E78.00 Pure hypercholesterolemia, unspecified; E11.9 Type 2 diabetes mellitus without complications; E78.49 Other hyperlipidemia; E66.9 Obesity, unspecified; G47.33 Obstructive sleep apnea (adult) (pediatric); Z91.048 Other nonmedicinal substance allergy status; Z79.899 Other long term (current) drug therapy; Z68.30 Body mass index [BMI] 30.0-30.9, adult; Z20.822 Contact with and (suspected) exposure to COVID-19; Z68.39 Body mass index [BMI] 39.0-39.9, adult
CPT/HCPCS: 36415; 80053; 80143; 80179; 80305; 80307; 81001; 82947; 83735; 84439; 84443; 84481; 85025; 99285; A9270; U0002; 99284; G0378

== ENCOUNTER 2022-02-17 17:03 | Emergency (ER) | payer MEDICARE, MEDICAID ==
[2022-02-17 17:56] LABS: ACETAMINOPHEN <2.0 ug/mL; BLOOD UREA NITROGEN,BUN 9 mg/dL (7.0-18.0); CARBON DIOXIDE,CO2 27.4 mmol/L (21.0-32.0); CHLORIDE,CL 105 mmol/L (98-107); GLUCOSE RANDOM 116 mg/dL (74-106); POTASSIUM,K 4.2 mmol/L (3.5-5.1); SODIUM,NA 142 mmol/L (136-145)
[2022-02-17] MEDS ORDERED: LORazepam 2 MG/ML SDV IM ONE (19:09)
== END 2022-02-17 20:03 ==
LOC: MW.ED 17:03
DX: R45.851 Suicidal ideations (principal); F32.9 Major depressive disorder, single episode, unspecified; E78.00 Pure hypercholesterolemia, unspecified; E11.9 Type 2 diabetes mellitus without complications; E66.9 Obesity, unspecified; Z68.37 Body mass index [BMI] 37.0-37.9, adult; Z79.899 Other long term (current) drug therapy; Z20.822 Contact with and (suspected) exposure to COVID-19
CPT/HCPCS: 36415; 80053; 80143; 80179; 80305; 80307; 81003; 81025; 83735; 85025; 96372; 99284; J2060; U0002

== ENCOUNTER 2022-03-10 14:16 | Emergency (ER) | payer MEDICARE, MEDICAID ==
[2022-03-10 16:33] LABS: ACETAMINOPHEN <2.0 ug/mL; BLOOD UREA NITROGEN,BUN 10 mg/dL (7.0-18.0); CARBON DIOXIDE,CO2 28.6 mmol/L (21.0-32.0); CHLORIDE,CL 105 mmol/L (98-107); GLUCOSE RANDOM 111 mg/dL (74-106); POTASSIUM,K 4.2 mmol/L (3.5-5.1); SODIUM,NA 140 mmol/L (136-145)
[2022-03-10] MEDS ORDERED: LORazepam 1 MG Tab PO ONE ×2 (16:33→21:21)
[2022-03-10] MEDS ORDERED: diphenhydrAMINE 50 MG Cap PO ONE (21:20)
== END 2022-03-10 22:36 ==
LOC: MW.ED 14:16
DX: R45.851 Suicidal ideations (principal); E78.00 Pure hypercholesterolemia, unspecified; E11.9 Type 2 diabetes mellitus without complications; E66.9 Obesity, unspecified; Z68.41 Body mass index [BMI] 40.0-44.9, adult; Z91.048 Other nonmedicinal substance allergy status; Z20.822 Contact with and (suspected) exposure to COVID-19
CPT/HCPCS: 36415; 80053; 80143; 80179; 80305; 80307; 81001; 83735; 84443; 85025; 99285; A9270; U0002

== ENCOUNTER 2022-09-18 22:19 | Emergency (ER) | payer MEDICAID, MEDICARE ==
[2022-09-18 23:42] LABS: ACETAMINOPHEN <2.0 ug/mL
[2022-09-18 23:54] LABS: BLOOD UREA NITROGEN,BUN 13 mg/dL (7.0-18.0); CARBON DIOXIDE,CO2 25.7 mmol/L (21.0-32.0); CHLORIDE,CL 103 mmol/L (98-107); GLUCOSE RANDOM 121 mg/dL (74-106); POTASSIUM,K 3.6 mmol/L (3.5-5.1); SODIUM,NA 140 mmol/L (136-145)
[2022-09-18 23:57] LABS: ESTIMATED GFR 56 mL/min (>60)
== END 2022-09-19 03:01 | disposition home or self-care (01) ==
LOC: MW.ED 22:19
DX: T43.212A Poisoning by selective serotonin and norepinephrine reuptake inhibitors, intentional self-harm, initial encounter (principal); E11.9 Type 2 diabetes mellitus without complications; E66.9 Obesity, unspecified; Z68.41 Body mass index [BMI] 40.0-44.9, adult; Z91.048 Other nonmedicinal substance allergy status; Z79.899 Other long term (current) drug therapy; Z20.822 Contact with and (suspected) exposure to COVID-19
CPT/HCPCS: 36415; 80053; 80143; 80179; 80307; 83735; 84443; 85025; 93005; 99285; U0002

== ENCOUNTER 2022-10-01 23:54 | Emergency (ER) | payer MEDICARE, OTHER ==
[2022-10-02 01:44] LABS: ACETAMINOPHEN <2.0 ug/mL; BLOOD UREA NITROGEN,BUN 10 mg/dL (7.0-18.0); CARBON DIOXIDE,CO2 26.3 mmol/L (21.0-32.0); CHLORIDE,CL 102 mmol/L (98-107); GLUCOSE RANDOM 101 mg/dL (74-106); POTASSIUM,K 3.6 mmol/L (3.5-5.1); SODIUM,NA 136 mmol/L (136-145)
[2022-10-02 01:50] LABS: ESTIMATED GFR 56 mL/min (>60)
[2022-10-02] MEDS ORDERED: Acetaminophen 325 MG Tab PO ONE (03:48)
== END 2022-10-02 12:18 | disposition home or self-care (01) ==
LOC: MW.ED 23:54
DX: F32.9 Major depressive disorder, single episode, unspecified (principal); E11.9 Type 2 diabetes mellitus without complications; E66.9 Obesity, unspecified; Z68.30 Body mass index [BMI] 30.0-30.9, adult; Z91.048 Other nonmedicinal substance allergy status; Z79.899 Other long term (current) drug therapy; Z20.822 Contact with and (suspected) exposure to COVID-19
CPT/HCPCS: 36415; 80053; 80143; 80179; 80305; 80307; 84443; 85025; 99284; A9270; U0002; 99285

== ENCOUNTER 2023-07-28 22:44 | Emergency (ER) | payer MEDICARE ==
[2023-07-29] MEDS ORDERED: LORazepam 2 MG/ML SDV IV ONE (00:58)
[2023-07-29] MEDS ORDERED: Sodium Chloride 0.9% 2.5 ML Syringe FLUSH PRN (00:58)
[2023-07-29] MEDS ORDERED: Sodium Chloride 0.9% 10 ML Syringe FLUSH PRN (00:58)
[2023-07-29] MEDS ORDERED: Ondansetron 4 MG/2 ML SDV IVPUSH ONE (00:58)
[2023-07-29 01:58] LABS: BASOPHILS ABSOLUTE AUTO 0.05 K/uL (0.00-0.20); BASOPHILS PERCENT AUTO 0.7 % (0.0-1.0); EOSINOPHILS ABSOLUTE AUTO 0.11 K/uL (0.00-0.45); EOSINOPHILS PERCENT AUTO 1.5 % (0.0-6.0); HEMATOCRIT 36.7 % (37.0-47.0); HEMOGLOBIN 13.3 g/dL (12.0-16.0); IMMATURE GRAN ABSOLUTE AUTO 0.01 K/uL (0.00-0.05); IMMATURE GRAN PERCENT AUTO 0.1 % (0.0-0.4); LYMPHOCYTES ABSOLUTE AUTO 2.76 K/uL (1.00-4.80); LYMPHOCYTES PERCENT AUTO 37.7 % (24.0-44.0); MEAN CORPUSCULAR HEMOGLOBIN 31.2 pg (28.0-32.0); MEAN CORPUSCULAR HGB CONC 36.2 g/dL (32.0-36.0); MEAN CORPUSCULAR VOLUME 86.2 fL (83.0-99.0); MEAN PLATELET VOLUME 9.2 fL (9.4-12.3); MONOCYTES ABSOLUTE AUTO 0.52 K/uL (0.00-0.80); MONOCYTES PERCENT AUTO 7.1 % (0.0-8.0); NEUTROPHILS ABSOLUTE AUTO 3.9 K/uL (1.8-7.7); NEUTROPHILS PERCENT AUTO 52.9 % (41.0-71.0); PLATELET COUNT,PLT 221 K/uL (150-400); RED BLOOD CELL COUNT 4.26 M/uL (4.10-5.30); WHITE BLOOD CELL COUNT,WBC 7.33 K/uL (3.9-11.3)
[2023-07-29 02:40] LABS: ACETAMINOPHEN <2.0 ug/mL; ALANINE AMINOTRANSFERASE,ALT 18 IU/L (14-63); ALBUMIN 3.5 g/dL (3.4-5.0); ALKALINE PHOSPHATASE 98 U/L (46-116); ASPARTATE AMNIOTRANSFERASE,AST 11 IU/L (15-37); BILIRUBIN TOTAL 0.4 mg/dL (0.2-1.0); BLOOD UREA NITROGEN,BUN 17 mg/dL (7.0-18.0); CALCIUM 8.5 mg/dL (8.5-10.1); CARBON DIOXIDE,CO2 26.8 mmol/L (21.0-32.0); CHLORIDE,CL 104 mmol/L (98-107); CREATININE 0.9 mg/dL (0.6-1.0); EST CRCL DRUG DOSING (CG) 49.29 mL/min; ETHANOL BLOOD MEDICAL <3 mg/dL; GLUCOSE RANDOM 103 mg/dL (74-106); MAGNESIUM 1.7 mg/dL (1.8-2.4); PROTEIN TOTAL,TP 6.9 g/dL (6.4-8.2); SALICYLATE 1.2 mg/dL (0.0-20.0); SODIUM,NA 138 mmol/L (136-145); TSH ULTRASENSITIVE 0.96 uIU/mL (0.36-3.74)
[2023-07-29 02:42] LABS: ESTIMATED GFR 71 mL/min (>60)
[2023-07-29] MEDS ORDERED: Diazepam 5 MG Tab PO ONE ×3 (03:02→04:22)
== END 2023-07-29 04:35 | disposition home or self-care (01) ==
LOC: MW.ED 22:44
DX: R07.89 Other chest pain (principal); G47.00 Insomnia, unspecified; F41.9 Anxiety disorder, unspecified; E11.9 Type 2 diabetes mellitus without complications; E66.9 Obesity, unspecified; Z79.899 Other long term (current) drug therapy; Z91.048 Other nonmedicinal substance allergy status
CPT/HCPCS: 36415; 71046; 80053; 80143; 80179; 80307; 83735; 84443; 84484; 85025; 85379; 93005; 96374; 96375; 99285; A9270; J2060; J2405; J3490; 93010; 99284

== ENCOUNTER 2023-07-29 19:25 | Emergency (ER) | payer MEDICARE ==
[2023-07-29] MEDS ORDERED: Sodium Chloride 0.9% 2.5 ML Syringe FLUSH PRN (19:52)
[2023-07-29] MEDS ORDERED: Sodium Chloride 0.9% 10 ML Syringe FLUSH PRN (19:52)
[2023-07-29] MEDS ORDERED: Sodium Chloride 0.9% 1,000 ML IV ONE (19:52)
[2023-07-29 20:14] LABS: BASOPHILS ABSOLUTE AUTO 0.04 K/uL (0.00-0.20); BASOPHILS PERCENT AUTO 0.5 % (0.0-1.0); EOSINOPHILS ABSOLUTE AUTO 0.09 K/uL (0.00-0.45); EOSINOPHILS PERCENT AUTO 1.1 % (0.0-6.0); HEMATOCRIT 39.4 % (37.0-47.0); HEMOGLOBIN 14.4 g/dL (12.0-16.0); IMMATURE GRAN ABSOLUTE AUTO 0.04 K/uL (0.00-0.05); IMMATURE GRAN PERCENT AUTO 0.5 % (0.0-0.4); LYMPHOCYTES ABSOLUTE AUTO 2.72 K/uL (1.00-4.80); LYMPHOCYTES PERCENT AUTO 33.1 % (24.0-44.0); MEAN CORPUSCULAR HEMOGLOBIN 31.4 pg (28.0-32.0); MEAN CORPUSCULAR HGB CONC 36.5 g/dL (32.0-36.0); MEAN CORPUSCULAR VOLUME 85.8 fL (83.0-99.0); MEAN PLATELET VOLUME 9.6 fL (9.4-12.3); MONOCYTES ABSOLUTE AUTO 0.53 K/uL (0.00-0.80); MONOCYTES PERCENT AUTO 6.5 % (0.0-8.0); NEUTROPHILS ABSOLUTE AUTO 4.8 K/uL (1.8-7.7); NEUTROPHILS PERCENT AUTO 58.3 % (41.0-71.0); PLATELET COUNT,PLT 246 K/uL (150-400); RED BLOOD CELL COUNT 4.59 M/uL (4.10-5.30); WHITE BLOOD CELL COUNT,WBC 8.21 K/uL (3.9-11.3)
[2023-07-29 20:48] LABS: A/G RATIO 1.1 (0.9-1.6); ALANINE AMINOTRANSFERASE,ALT 23 IU/L (14-63); ALBUMIN 3.8 g/dL (3.4-5.0); ALKALINE PHOSPHATASE 85 U/L (46-116); ASPARTATE AMNIOTRANSFERASE,AST 19 IU/L (15-37); BILIRUBIN TOTAL 0.5 mg/dL (0.2-1.0); BLOOD UREA NITROGEN,BUN 12 mg/dL (7.0-18.0); CALCIUM 9.2 mg/dL (8.5-10.1); CARBON DIOXIDE,CO2 27.5 mmol/L (21.0-32.0); CHLORIDE,CL 104 mmol/L (98-107); EST CRCL DRUG DOSING (CG) 44.36 mL/min; GLUCOSE RANDOM 101 mg/dL (74-106); POTASSIUM,K 4.2 mmol/L (3.5-5.1); PROTEIN TOTAL,TP 7.4 g/dL (6.4-8.2); SODIUM,NA 140 mmol/L (136-145)
[2023-07-29 20:50] LABS: ESTIMATED GFR 63 mL/min (>60); ETHANOL BLOOD MEDICAL < 3.0 mg/dL
[2023-07-29] MEDS ORDERED: Ibuprofen 600 MG Tab PO ONE (21:22)
== END 2023-07-29 22:30 | disposition home or self-care (01) ==
LOC: MW.ED 19:25
DX: S16.1XXA Strain of muscle, fascia and tendon at neck level, initial encounter (principal); E11.9 Type 2 diabetes mellitus without complications; E66.9 Obesity, unspecified; Z79.899 Other long term (current) drug therapy; Z91.048 Other nonmedicinal substance allergy status; W19.XXXA Unspecified fall, initial encounter
CPT/HCPCS: 36415; 70450; 72125; 72170; 80053; 80307; 84484; 85025; 93005; 96360; 99284; A9270; J3490; J7030; 93010; 99283

== ENCOUNTER 2023-09-14 20:10 | Emergency (ER) | payer MEDICARE ==
[2023-09-14] MEDS ORDERED: Lidocaine 4% 1 each Patch TOP STA (20:14)
[2023-09-14] MEDS ORDERED: Ondansetron 4 MG Tab.DIS PO ONE (20:14)
[2023-09-14] MEDS ORDERED: Acetaminophen/HYDROcodone 325-5 MG Tab PO ONE (20:14)
== END 2023-09-14 21:30 | disposition home or self-care (01) ==
LOC: MW.ED 20:10
DX: S83.91XA Sprain of unspecified site of right knee, initial encounter (principal); S93.401A Sprain of unspecified ligament of right ankle, initial encounter; E11.9 Type 2 diabetes mellitus without complications; Z91.048 Other nonmedicinal substance allergy status; Z79.899 Other long term (current) drug therapy; Z90.710 Acquired absence of both cervix and uterus; E66.9 Obesity, unspecified; Z68.30 Body mass index [BMI] 30.0-30.9, adult; W10.9XXA Fall (on) (from) unspecified stairs and steps, initial encounter
CPT/HCPCS: 73562; 73610; 73630; 99283; A9270

== ENCOUNTER 2023-09-19 09:05 | Emergency (ER) | payer MEDICARE ==
[2023-09-19] MEDS ORDERED: LORazepam 1 MG Tab PO ONE (09:29)
== END 2023-09-19 09:59 | disposition home or self-care (01) ==
LOC: MW.ED 09:05
DX: F41.9 Anxiety disorder, unspecified (principal); E78.00 Pure hypercholesterolemia, unspecified; E11.9 Type 2 diabetes mellitus without complications; E66.9 Obesity, unspecified; Z90.710 Acquired absence of both cervix and uterus; Z79.899 Other long term (current) drug therapy; Z91.048 Other nonmedicinal substance allergy status; Z68.35 Body mass index [BMI] 35.0-35.9, adult
CPT/HCPCS: 99283; 99284

== ENCOUNTER 2023-09-19 11:06 | Emergency (ER) | payer MEDICARE | END 2023-09-19 12:38 | disposition home or self-care (01) | LOC: MW.ED 11:06 | DX: F41.9 Anxiety disorder, unspecified (principal); E78.00 Pure hypercholesterolemia, unspecified; E11.9 Type 2 diabetes mellitus without complications; E66.9 Obesity, unspecified; Z90.49 Acquired absence of other specified parts of digestive tract; Z79.899 Other long term (current) drug therapy; Z91.048 Other nonmedicinal substance allergy status; Z68.35 Body mass index [BMI] 35.0-35.9, adult | CPT/HCPCS: 99283 ==

== ENCOUNTER 2023-09-21 13:30 | Emergency (ER) | payer MEDICARE ==
[2023-09-21] MEDS ORDERED: Ziprasidone Mesylate 20 MG Vial IM ONE (13:58)
[2023-09-21] MEDS ORDERED: Water For Injection, Sterile 20 ML SDV INJECT ONE (13:58)
[2023-09-21 15:26] LABS: BASOPHILS ABSOLUTE AUTO 0.05 K/uL (0.00-0.20); BASOPHILS PERCENT AUTO 0.6 % (0.0-1.0); EOSINOPHILS ABSOLUTE AUTO 0.05 K/uL (0.00-0.45); EOSINOPHILS PERCENT AUTO 0.6 % (0.0-6.0); HEMATOCRIT 38.3 % (37.0-47.0); HEMOGLOBIN 13.5 g/dL (12.0-16.0); IMMATURE GRAN ABSOLUTE AUTO 0.02 K/uL (0.00-0.05); IMMATURE GRAN PERCENT AUTO 0.2 % (0.0-0.4); LYMPHOCYTES ABSOLUTE AUTO 2.32 K/uL (1.00-4.80); LYMPHOCYTES PERCENT AUTO 28.9 % (24.0-44.0); MEAN CORPUSCULAR HEMOGLOBIN 31.3 pg (28.0-32.0); MEAN CORPUSCULAR HGB CONC 35.2 g/dL (32.0-36.0); MEAN CORPUSCULAR VOLUME 88.7 fL (83.0-99.0); MEAN PLATELET VOLUME 9.1 fL (9.4-12.3); MONOCYTES ABSOLUTE AUTO 0.54 K/uL (0.00-0.80); MONOCYTES PERCENT AUTO 6.7 % (0.0-8.0); NEUTROPHILS ABSOLUTE AUTO 5.04 K/uL (1.80-7.70); PLATELET COUNT,PLT 213 K/uL (150-400); RED BLOOD CELL COUNT 4.32 M/uL (4.10-5.30); WHITE BLOOD CELL COUNT,WBC 8.02 K/uL (3.9-11.3)
[2023-09-21 16:02] LABS: ACETAMINOPHEN <2.0 ug/mL; ALANINE AMINOTRANSFERASE,ALT 24 IU/L (14-63); ALBUMIN 3.3 g/dL (3.4-5.0); ALKALINE PHOSPHATASE 80 U/L (46-116); ASPARTATE AMNIOTRANSFERASE,AST 19 IU/L (15-37); BILIRUBIN TOTAL 0.4 mg/dL (0.2-1.0); BLOOD UREA NITROGEN,BUN 15 mg/dL (7.0-18.0); CALCIUM 9.1 mg/dL (8.5-10.1); CARBON DIOXIDE,CO2 25.4 mmol/L (21.0-32.0); CHLORIDE,CL 104 mmol/L (98-107); CREATININE 0.9 mg/dL (0.6-1.0); ETHANOL BLOOD MEDICAL <3 mg/dL; GLUCOSE RANDOM 99 mg/dL (74-106); MAGNESIUM 1.7 mg/dL (1.8-2.4); POTASSIUM,K 3.8 mmol/L (3.5-5.1); PROTEIN TOTAL,TP 6.7 g/dL (6.4-8.2); SALICYLATE 1.8 mg/dL (0.0-20.0); SODIUM,NA 138 mmol/L (136-145); TSH ULTRASENSITIVE 0.88 uIU/mL (0.36-3.74)
[2023-09-21 16:03] LABS: ESTIMATED GFR 71 mL/min (>60)
[2023-09-21 16:28] LABS: CORONAVIRUS COVID-19 NAA NEGATIVE (NEGATIVE); INFLUENZA A NAA NEGATIVE (NEGATIVE); INFLUENZA B NAA NEGATIVE (NEGATIVE)
[2023-09-21 16:29] LABS: APPEARANCE,URINE CLEAR; BILIRUBIN,URINE NEGATIVE (NEGATIVE); COLOR,URINE YELLOW; GLUCOSE,URINE NEGATIVE (NEGATIVE); KETONES,URINE NEGATIVE (NEGATIVE); LEUKOCYTE ESTERASE,URINE NEGATIVE (NEGATIVE); NITRITE,URINE NEGATIVE (NEGATIVE); OCCULT BLOOD,URINE NEGATIVE (NEGATIVE); PROTEIN,URINE NEGATIVE (NEGATIVE); UROBILINOGEN,URINE 0.2 EU/dL (<2.0)
[2023-09-21 16:35] LABS: BACTERIA,URINE RARE (NEGATIVE); MUCUS,URINE LIGHT (NONE-MOD); RBC,URINE 0-2 (0-2/HPF); SQUAMOUS EPITHELIAL CELLS,UR OCCASIONAL; WBC,URINE 0-2 (0-5/HPF)
[2023-09-21 16:38] LABS: AMPHETAMINES SCREEN, URINE NEGATIVE (CUTOFF=500); BARBITURATE SCREEN,URINE NEGATIVE (CUTOFF=200); BENZODIAZEPINES SCREEN,URINE PRESUMPTIVE POSITIVE (CUTOFF=150); BUPRENORPHINE SCREEN,URINE NEGATIVE (CUTOFF=10); METHADONE SCREEN, URINE NEGATIVE (CUTOFF=200); METHAMPHETAMINES SCREEN, URINE NEGATIVE (CUTOFF=500); OXYCODONE SCREEN,URINE NEGATIVE (CUT0FF=100); PCP SCREEN,URINE NEGATIVE (CUTOFF=25); THC SCREEN,URINE 20 NG/ML NEGATIVE (CUTOFF=50)
== END 2023-09-21 18:20 | disposition home or self-care (01) ==
LOC: MW.ED 13:30
DX: F41.9 Anxiety disorder, unspecified (principal); Z20.822 Contact with and (suspected) exposure to COVID-19; E78.00 Pure hypercholesterolemia, unspecified; E11.9 Type 2 diabetes mellitus without complications; E66.9 Obesity, unspecified; Z90.710 Acquired absence of both cervix and uterus; Z79.899 Other long term (current) drug therapy; Z91.048 Other nonmedicinal substance allergy status; Z68.38 Body mass index [BMI] 38.0-38.9, adult
CPT/HCPCS: 0240U; 36415; 80053; 80143; 80179; 80305; 80307; 81001; 81025; 83735; 84443; 85025; 93005; J3486; 93010; 96372; 99283; 99285; J3490

== ENCOUNTER 2024-01-18 15:54 | Emergency (ER) | payer MEDICARE ==
[2024-01-18 16:23] LABS: APPEARANCE,URINE CLEAR; BILIRUBIN,URINE NEGATIVE (NEGATIVE); COLOR,URINE YELLOW; GLUCOSE,URINE NEGATIVE (NEGATIVE); KETONES,URINE NEGATIVE (NEGATIVE); LEUKOCYTE ESTERASE,URINE NEGATIVE (NEGATIVE); NITRITE,URINE NEGATIVE (NEGATIVE); OCCULT BLOOD,URINE NEGATIVE (NEGATIVE); PROTEIN,URINE NEGATIVE (NEGATIVE); UROBILINOGEN,URINE 0.2 EU/dL (<2.0)
[2024-01-18 16:31] LABS: BASOPHILS ABSOLUTE AUTO 0.03 K/uL (0.00-0.20); BASOPHILS PERCENT AUTO 0.5 % (0.0-1.0); EOSINOPHILS ABSOLUTE AUTO 0.06 K/uL (0.00-0.45); EOSINOPHILS PERCENT AUTO 1.1 % (0.0-6.0); HEMATOCRIT 35.7 % (37.0-47.0); HEMOGLOBIN 13.1 g/dL (12.0-16.0); LYMPHOCYTES ABSOLUTE AUTO 2.08 K/uL (1.00-4.80); LYMPHOCYTES PERCENT AUTO 36.6 % (24.0-44.0); MEAN CORPUSCULAR HEMOGLOBIN 31.6 pg (28.0-32.0); MEAN CORPUSCULAR HGB CONC 36.7 g/dL (32.0-36.0); MEAN CORPUSCULAR VOLUME 86.2 fL (83.0-99.0); MEAN PLATELET VOLUME 9.2 fL (9.4-12.3); MONOCYTES ABSOLUTE AUTO 0.51 K/uL (0.00-0.80); NEUTROPHILS ABSOLUTE AUTO 3.01 K/uL (1.80-7.70); NEUTROPHILS PERCENT AUTO 52.8 % (41.0-71.0); PLATELET COUNT,PLT 202 K/uL (150-400); RED BLOOD CELL COUNT 4.14 M/uL (4.10-5.30); WHITE BLOOD CELL COUNT,WBC 5.69 K/uL (3.9-11.3)
[2024-01-18 16:33] LABS: AMPHETAMINES SCREEN, URINE NEGATIVE (CUTOFF=500); BARBITURATE SCREEN,URINE NEGATIVE (CUTOFF=200); BENZODIAZEPINES SCREEN,URINE NEGATIVE (CUTOFF=150); BUPRENORPHINE SCREEN,URINE NEGATIVE (CUTOFF=10); METHADONE SCREEN, URINE NEGATIVE (CUTOFF=200); METHAMPHETAMINES SCREEN, URINE NEGATIVE (CUTOFF=500); OXYCODONE SCREEN,URINE NEGATIVE (CUT0FF=100); PCP SCREEN,URINE NEGATIVE (CUTOFF=25); THC SCREEN,URINE 20 NG/ML NEGATIVE (CUTOFF=50)
[2024-01-18 17:05] LABS: A/G RATIO 1.1 (0.9-1.6); ACETAMINOPHEN <2.0 ug/mL; ALANINE AMINOTRANSFERASE,ALT 16 IU/L (14-63); ALBUMIN 3.6 g/dL (3.4-5.0); ALKALINE PHOSPHATASE 88 U/L (46-116); ASPARTATE AMNIOTRANSFERASE,AST 14 IU/L (15-37); BILIRUBIN TOTAL 0.4 mg/dL (0.2-1.0); BLOOD UREA NITROGEN,BUN 15 mg/dL (7.0-18.0); CALCIUM 9.7 mg/dL (8.5-10.1); CARBON DIOXIDE,CO2 26.4 mmol/L (21.0-32.0); CHLORIDE,CL 104 mmol/L (98-107); EST CRCL DRUG DOSING (CG) 44.36 mL/min; ETHANOL BLOOD MEDICAL <3 mg/dL; GLUCOSE RANDOM 114 mg/dL (74-106); POTASSIUM,K 4.1 mmol/L (3.5-5.1); SALICYLATE 0.9 mg/dL (0.0-20.0); SODIUM,NA 139 mmol/L (136-145); TSH ULTRASENSITIVE 0.58 uIU/mL (0.36-3.74)
[2024-01-18 17:10] LABS: ESTIMATED GFR 63 mL/min (>60)
[2024-01-18] MEDS: Sodium Chloride 0.9% 1,000 ML IV ONE (18:39)
[2024-01-18 20:17] LABS: ACETAMINOPHEN <2.0 ug/mL; SALICYLATE 0.7 mg/dL (0.0-20.0)
== END 2024-01-18 21:33 | disposition home or self-care (01) ==
LOC: MW.ED 15:54
DX: T43.591A Poisoning by other antipsychotics and neuroleptics, accidental (unintentional), initial encounter (principal); E66.9 Obesity, unspecified; E11.9 Type 2 diabetes mellitus without complications; Z88.8 Allergy status to other drugs, medicaments and biological substances; Z79.899 Other long term (current) drug therapy; Z68.34 Body mass index [BMI] 34.0-34.9, adult; Z90.710 Acquired absence of both cervix and uterus
CPT/HCPCS: 36415; 80053; 80143; 80179; 80305; 80307; 81003; 83735; 84443; 84703; 85025; 93005; 96360; 99285; J7030; U0002; 93010; 99282

== ENCOUNTER 2024-02-22 22:32 | Emergency (ER) | payer MEDICARE ==
[2024-02-22 22:43] LABS: BASOPHILS ABSOLUTE AUTO 0.05 K/uL (0.00-0.20); BASOPHILS PERCENT AUTO 0.6 % (0.0-1.0); EOSINOPHILS PERCENT AUTO 1.3 % (0.0-6.0); HEMATOCRIT 38.2 % (37.0-47.0); HEMOGLOBIN 13.5 g/dL (12.0-16.0); IMMATURE GRAN ABSOLUTE AUTO 0.01 K/uL (0.00-0.05); IMMATURE GRAN PERCENT AUTO 0.1 % (0.0-0.4); LYMPHOCYTES ABSOLUTE AUTO 2.58 K/uL (1.00-4.80); LYMPHOCYTES PERCENT AUTO 32.9 % (24.0-44.0); MEAN CORPUSCULAR HEMOGLOBIN 30.5 pg (28.0-32.0); MEAN CORPUSCULAR HGB CONC 35.3 g/dL (32.0-36.0); MEAN CORPUSCULAR VOLUME 86.2 fL (83.0-99.0); MEAN PLATELET VOLUME 9.2 fL (9.4-12.3); MONOCYTES PERCENT AUTO 8.9 % (0.0-8.0); NEUTROPHILS ABSOLUTE AUTO 4.41 K/uL (1.80-7.70); NEUTROPHILS PERCENT AUTO 56.2 % (41.0-71.0); PLATELET COUNT,PLT 210 K/uL (150-400); RED BLOOD CELL COUNT 4.43 M/uL (4.10-5.30); WHITE BLOOD CELL COUNT,WBC 7.85 K/uL (3.9-11.3)
[2024-02-22 22:43] LABS: BASE EXCESS VENOUS -3.3 (-2.0-3.0); PH,VENOUS 7.34 (7.31-7.41)
[2024-02-22 23:00] LABS: APPEARANCE,URINE CLEAR; BILIRUBIN,URINE NEGATIVE (NEGATIVE); COLOR,URINE YELLOW; GLUCOSE,URINE NEGATIVE (NEGATIVE); KETONES,URINE NEGATIVE (NEGATIVE); LEUKOCYTE ESTERASE,URINE NEGATIVE (NEGATIVE); NITRITE,URINE NEGATIVE (NEGATIVE); OCCULT BLOOD,URINE NEGATIVE (NEGATIVE); PROTEIN,URINE NEGATIVE (NEGATIVE); UROBILINOGEN,URINE 0.2 EU/dL (<2.0)
[2024-02-22 23:01] LABS: INR 0.98 (0.86-1.11)
[2024-02-22 23:09] LABS: A/G RATIO 0.9 (0.9-1.6); ALANINE AMINOTRANSFERASE,ALT 20 IU/L (14-63); ALBUMIN 3.4 g/dL (3.4-5.0); ALKALINE PHOSPHATASE 79 U/L (46-116); ASPARTATE AMNIOTRANSFERASE,AST 16 IU/L (15-37); BILIRUBIN TOTAL 0.3 mg/dL (0.2-1.0); BLOOD UREA NITROGEN,BUN 24 mg/dL (7.0-18.0); CALCIUM 8.9 mg/dL (8.5-10.1); CARBON DIOXIDE,CO2 22.3 mmol/L (21.0-32.0); CHLORIDE,CL 101 mmol/L (98-107); CREATININE 0.9 mg/dL (0.6-1.0); GLUCOSE RANDOM 120 mg/dL (74-106); POTASSIUM,K 3.9 mmol/L (3.5-5.1); SODIUM,NA 135 mmol/L (136-145)
[2024-02-22 23:09] LABS: AMPHETAMINES SCREEN, URINE NEGATIVE (CUTOFF=500); BARBITURATE SCREEN,URINE NEGATIVE (CUTOFF=200); BENZODIAZEPINES SCREEN,URINE NEGATIVE (CUTOFF=150); BUPRENORPHINE SCREEN,URINE NEGATIVE (CUTOFF=10); METHADONE SCREEN, URINE NEGATIVE (CUTOFF=200); METHAMPHETAMINES SCREEN, URINE NEGATIVE (CUTOFF=500); OXYCODONE SCREEN,URINE NEGATIVE (CUT0FF=100); PCP SCREEN,URINE NEGATIVE (CUTOFF=25); THC SCREEN,URINE 20 NG/ML NEGATIVE (CUTOFF=50)
[2024-02-22 23:13] LABS: ESTIMATED GFR 71 mL/min (>60)
[2024-02-22 23:19] LABS: ACETAMINOPHEN <2.0 ug/mL; ETHANOL BLOOD MEDICAL 198 mg/dL; SALICYLATE 1.5 mg/dL (0.0-20.0); TSH ULTRASENSITIVE 1.33 uIU/mL (0.36-3.74)
[2024-02-22] MEDS: Ondansetron 4 MG/2 ML SDV IVPUSH ONE (23:48)
[2024-02-22] MEDS: Ondansetron 4 MG/2 ML SDV ONE (23:54)
[2024-02-23] MEDS: Lactated Ringers 1,000 ML IV ONE ×2 (01:00→02:57)
[2024-02-23] MEDS: Dextrose 5%-Lactated Ringers 1,000 ML IV SCH (03:50)
== END 2024-02-23 10:39 ==
LOC: MW.ED 22:32
DX: T43.632A Poisoning by methylphenidate, intentional self-harm, initial encounter (principal); R45.851 Suicidal ideations; E66.9 Obesity, unspecified; E11.9 Type 2 diabetes mellitus without complications; Z91.048 Other nonmedicinal substance allergy status; Z79.899 Other long term (current) drug therapy; Z90.710 Acquired absence of both cervix and uterus
CPT/HCPCS: 36415; 80053; 80143; 80179; 80305; 80307; 81003; 82803; 82947; 84443; 85025; 85610; 93005; 96361; 96374; 99285; J2405; J7120; J7121; U0002; 93010; 99291

== ENCOUNTER 2024-04-26 20:13 | Emergency (ER) | payer MEDICARE ==
[2024-04-26 20:38] LABS: APPEARANCE,URINE CLEAR; BILIRUBIN,URINE NEGATIVE (NEGATIVE); COLOR,URINE YELLOW; GLUCOSE,URINE NEGATIVE (NEGATIVE); KETONES,URINE NEGATIVE (NEGATIVE); LEUKOCYTE ESTERASE,URINE NEGATIVE (NEGATIVE); NITRITE,URINE NEGATIVE (NEGATIVE); OCCULT BLOOD,URINE NEGATIVE (NEGATIVE); PROTEIN,URINE NEGATIVE (NEGATIVE); UROBILINOGEN,URINE 0.2 EU/dL (<2.0)
[2024-04-26 20:48] LABS: AMPHETAMINES SCREEN, URINE NEGATIVE (CUTOFF=500); BARBITURATE SCREEN,URINE NEGATIVE (CUTOFF=200); BENZODIAZEPINES SCREEN,URINE NEGATIVE (CUTOFF=150); BUPRENORPHINE SCREEN,URINE NEGATIVE (CUTOFF=10); METHADONE SCREEN, URINE NEGATIVE (CUTOFF=200); METHAMPHETAMINES SCREEN, URINE NEGATIVE (CUTOFF=500); OXYCODONE SCREEN,URINE NEGATIVE (CUT0FF=100); PCP SCREEN,URINE NEGATIVE (CUTOFF=25); THC SCREEN,URINE 20 NG/ML NEGATIVE (CUTOFF=50)
[2024-04-26 20:49] LABS: BASOPHILS ABSOLUTE AUTO 0.03 K/uL (0.00-0.20); BASOPHILS PERCENT AUTO 0.4 % (0.0-1.0); EOSINOPHILS ABSOLUTE AUTO 0.09 K/uL (0.00-0.45); EOSINOPHILS PERCENT AUTO 1.1 % (0.0-6.0); HEMATOCRIT 38.2 % (37.0-47.0); HEMOGLOBIN 13.4 g/dL (12.0-16.0); IMMATURE GRAN ABSOLUTE AUTO 0.02 K/uL (0.00-0.05); IMMATURE GRAN PERCENT AUTO 0.2 % (0.0-0.4); LYMPHOCYTES ABSOLUTE AUTO 2.04 K/uL (1.00-4.80); LYMPHOCYTES PERCENT AUTO 23.8 % (24.0-44.0); MEAN CORPUSCULAR HEMOGLOBIN 30.7 pg (28.0-32.0); MEAN CORPUSCULAR HGB CONC 35.1 g/dL (32.0-36.0); MEAN CORPUSCULAR VOLUME 87.4 fL (83.0-99.0); MEAN PLATELET VOLUME 9.1 fL (9.4-12.3); MONOCYTES ABSOLUTE AUTO 0.63 K/uL (0.00-0.80); MONOCYTES PERCENT AUTO 7.4 % (0.0-8.0); NEUTROPHILS ABSOLUTE AUTO 5.76 K/uL (1.80-7.70); NEUTROPHILS PERCENT AUTO 67.1 % (41.0-71.0); PLATELET COUNT,PLT 208 K/uL (150-400); RED BLOOD CELL COUNT 4.37 M/uL (4.10-5.30); WHITE BLOOD CELL COUNT,WBC 8.57 K/uL (3.9-11.3)
[2024-04-26 21:40] LABS: A/G RATIO 1.2 (0.9-1.6); ACETAMINOPHEN <2.0 ug/mL; ALANINE AMINOTRANSFERASE,ALT 18 IU/L (14-63); ALBUMIN 3.8 g/dL (3.4-5.0); ALKALINE PHOSPHATASE 89 U/L (46-116); ASPARTATE AMNIOTRANSFERASE,AST 13 IU/L (15-37); BILIRUBIN TOTAL 0.3 mg/dL (0.2-1.0); BLOOD UREA NITROGEN,BUN 15 mg/dL (7.0-18.0); CALCIUM 9.3 mg/dL (8.5-10.1); CARBON DIOXIDE,CO2 27.1 mmol/L (21.0-32.0); CHLORIDE,CL 101 mmol/L (98-107); CREATININE 1.1 mg/dL (0.6-1.0); EST CRCL DRUG DOSING (CG) 39.79 mL/min; ETHANOL BLOOD MEDICAL <3 mg/dL; GLUCOSE RANDOM 109 mg/dL (74-106); POTASSIUM,K 3.8 mmol/L (3.5-5.1); SODIUM,NA 139 mmol/L (136-145); TSH ULTRASENSITIVE 1.27 uIU/mL (0.36-3.74)
[2024-04-26 21:41] LABS: ESTIMATED GFR 55 mL/min (>60)
[2024-04-26 22:28] LABS: CORONAVIRUS COVID-19 NAA NEGATIVE (NEGATIVE); INFLUENZA A NAA NEGATIVE (NEGATIVE); INFLUENZA B NAA NEGATIVE (NEGATIVE); RESPIRATORY SYNCYTIAL VIR NAA NEGATIVE (NEGATIVE)
== END 2024-04-27 09:48 ==
LOC: MW.ED 20:13
DX: R45.851 Suicidal ideations (principal); E78.00 Pure hypercholesterolemia, unspecified; E11.9 Type 2 diabetes mellitus without complications; Z91.048 Other nonmedicinal substance allergy status; Z79.899 Other long term (current) drug therapy; Z90.710 Acquired absence of both cervix and uterus
CPT/HCPCS: 0241U; 36415; 80053; 80143; 80179; 80305; 80307; 81003; 84443; 85025; 93005; 99285

== ENCOUNTER 2024-05-09 01:29 | Emergency (ER) | payer MEDICARE ==
[2024-05-09 02:13] LABS: BASOPHILS ABSOLUTE AUTO 0.04 K/uL (0.00-0.20); BASOPHILS PERCENT AUTO 0.5 % (0.0-1.0); EOSINOPHILS ABSOLUTE AUTO 0.13 K/uL (0.00-0.45); EOSINOPHILS PERCENT AUTO 1.7 % (0.0-6.0); HEMATOCRIT 35.5 % (37.0-47.0); HEMOGLOBIN 12.5 g/dL (12.0-16.0); IMMATURE GRAN ABSOLUTE AUTO 0.02 K/uL (0.00-0.05); IMMATURE GRAN PERCENT AUTO 0.3 % (0.0-0.4); LYMPHOCYTES ABSOLUTE AUTO 2.02 K/uL (1.00-4.80); LYMPHOCYTES PERCENT AUTO 26.2 % (24.0-44.0); MEAN CORPUSCULAR HEMOGLOBIN 31.1 pg (28.0-32.0); MEAN CORPUSCULAR HGB CONC 35.2 g/dL (32.0-36.0); MEAN CORPUSCULAR VOLUME 88.3 fL (83.0-99.0); MEAN PLATELET VOLUME 9.1 fL (9.4-12.3); MONOCYTES ABSOLUTE AUTO 0.62 K/uL (0.00-0.80); MONOCYTES PERCENT AUTO 8.1 % (0.0-8.0); NEUTROPHILS ABSOLUTE AUTO 4.87 K/uL (1.80-7.70); NEUTROPHILS PERCENT AUTO 63.2 % (41.0-71.0); PLATELET COUNT,PLT 188 K/uL (150-400); RED BLOOD CELL COUNT 4.02 M/uL (4.10-5.30)
[2024-05-09 02:43] LABS: APPEARANCE,URINE CLEAR; BILIRUBIN,URINE NEGATIVE (NEGATIVE); COLOR,URINE YELLOW; GLUCOSE,URINE NEGATIVE (NEGATIVE); KETONES,URINE NEGATIVE (NEGATIVE); LEUKOCYTE ESTERASE,URINE MODERATE (NEGATIVE); NITRITE,URINE NEGATIVE (NEGATIVE); OCCULT BLOOD,URINE NEGATIVE (NEGATIVE); PROTEIN,URINE NEGATIVE (NEGATIVE); UROBILINOGEN,URINE 0.2 EU/dL (<2.0)
[2024-05-09 02:53] LABS: AMPHETAMINES SCREEN, URINE NEGATIVE (CUTOFF=500); BARBITURATE SCREEN,URINE NEGATIVE (CUTOFF=200); BENZODIAZEPINES SCREEN,URINE PRESUMPTIVE POSITIVE (CUTOFF=150); BUPRENORPHINE SCREEN,URINE NEGATIVE (CUTOFF=10); METHADONE SCREEN, URINE NEGATIVE (CUTOFF=200); METHAMPHETAMINES SCREEN, URINE NEGATIVE (CUTOFF=500); OXYCODONE SCREEN,URINE NEGATIVE (CUT0FF=100); PCP SCREEN,URINE NEGATIVE (CUTOFF=25); THC SCREEN,URINE 20 NG/ML NEGATIVE (CUTOFF=50)
[2024-05-09 03:02] LABS: A/G RATIO 1.2 (0.9-1.6); ACETAMINOPHEN <2.0 ug/mL; ALANINE AMINOTRANSFERASE,ALT 18 IU/L (14-63); ALBUMIN 3.6 g/dL (3.4-5.0); ALKALINE PHOSPHATASE 81 U/L (46-116); ASPARTATE AMNIOTRANSFERASE,AST 12 IU/L (15-37); BILIRUBIN TOTAL 0.4 mg/dL (0.2-1.0); BLOOD UREA NITROGEN,BUN 8 mg/dL (7.0-18.0); CALCIUM 9.1 mg/dL (8.5-10.1); CARBON DIOXIDE,CO2 27.2 mmol/L (21.0-32.0); CHLORIDE,CL 103 mmol/L (98-107); CREATININE 1.1 mg/dL (0.6-1.0); EST CRCL DRUG DOSING (CG) 39.79 mL/min; ETHANOL BLOOD MEDICAL <3 mg/dL; GLUCOSE RANDOM 93 mg/dL (74-106); MAGNESIUM 1.6 mg/dL (1.8-2.4); POTASSIUM,K 3.9 mmol/L (3.5-5.1); PROTEIN TOTAL,TP 6.5 g/dL (6.4-8.2); SALICYLATE 0.8 mg/dL (0.0-20.0); SODIUM,NA 138 mmol/L (136-145)
[2024-05-09 03:07] LABS: ESTIMATED GFR 55 mL/min (>60)
[2024-05-09 03:09] LABS: BACTERIA,URINE RARE (NEGATIVE); EPITHELIAL CELLS,URINE RARE (NONE-FEW); RBC,URINE 0-1 (0-2/HPF)
== END 2024-05-09 03:35 | disposition home or self-care (01) ==
LOC: MW.ED 01:29
DX: R44.0 Auditory hallucinations (principal); E11.9 Type 2 diabetes mellitus without complications; E66.9 Obesity, unspecified; Z90.710 Acquired absence of both cervix and uterus; Z79.899 Other long term (current) drug therapy; Z91.048 Other nonmedicinal substance allergy status; Z68.38 Body mass index [BMI] 38.0-38.9, adult; Z75.8 Other problems related to medical facilities and other health care
CPT/HCPCS: 36415; 80053; 80143; 80179; 80305-QW; 80307; 81001; 83735; 85025; 93005; 93010; 99283; 99285

== ENCOUNTER 2024-05-26 17:07 | Emergency (ER) | payer MEDICARE ==
[2024-05-26] MEDS: Ketorolac 30 MG/ML SDV IM STA (17:47)
[2024-05-26] MEDS: Magnesium Oxide 400 MG Tab PO STA (17:48)
[2024-05-26] MEDS: Dexamethasone 4 MG Tab PO STA (17:48)
[2024-05-26] MEDS: diphenhydrAMINE 25 MG Cap PO STA (17:48)
[2024-05-26] MEDS: Acetaminophen 500 MG Tab PO STA (17:48)
== END 2024-05-26 18:31 | disposition home or self-care (01) ==
LOC: MW.ED 17:07
DX: R51.9 Headache, unspecified (principal); E78.00 Pure hypercholesterolemia, unspecified; E11.9 Type 2 diabetes mellitus without complications; Z90.710 Acquired absence of both cervix and uterus; Z75.8 Other problems related to medical facilities and other health care; Z91.048 Other nonmedicinal substance allergy status; Z79.899 Other long term (current) drug therapy
CPT/HCPCS: 96372; 99283; A9270; J1885; J8540

== ENCOUNTER 2024-06-04 09:38 | Emergency (ER) | payer MEDICARE ==
[2024-06-04 10:28] LABS: BASOPHILS ABSOLUTE AUTO 0.05 K/uL (0.00-0.20); BASOPHILS PERCENT AUTO 0.7 % (0.0-1.0); EOSINOPHILS ABSOLUTE AUTO 0.32 K/uL (0.00-0.45); EOSINOPHILS PERCENT AUTO 4.3 % (0.0-6.0); HEMATOCRIT 43.9 % (37.0-47.0); HEMOGLOBIN 15.2 g/dL (12.0-16.0); IMMATURE GRAN ABSOLUTE AUTO 0.01 K/uL (0.00-0.05); IMMATURE GRAN PERCENT AUTO 0.1 % (0.0-0.4); LYMPHOCYTES ABSOLUTE AUTO 1.54 K/uL (1.00-4.80); LYMPHOCYTES PERCENT AUTO 20.8 % (24.0-44.0); MEAN CORPUSCULAR HEMOGLOBIN 31.2 pg (28.0-32.0); MEAN CORPUSCULAR HGB CONC 34.6 g/dL (32.0-36.0); MEAN CORPUSCULAR VOLUME 90.1 fL (83.0-99.0); MEAN PLATELET VOLUME 9.4 fL (9.4-12.3); MONOCYTES ABSOLUTE AUTO 0.39 K/uL (0.00-0.80); MONOCYTES PERCENT AUTO 5.3 % (0.0-8.0); NEUTROPHILS ABSOLUTE AUTO 5.08 K/uL (1.80-7.70); NEUTROPHILS PERCENT AUTO 68.8 % (41.0-71.0); PLATELET COUNT,PLT 245 K/uL (150-400); RED BLOOD CELL COUNT 4.87 M/uL (4.10-5.30); WHITE BLOOD CELL COUNT,WBC 7.39 K/uL (3.9-11.3)
[2024-06-04 11:00] LABS: BILIRUBIN,URINE NEGATIVE (NEGATIVE); COLOR,URINE YELLOW; GLUCOSE,URINE NEGATIVE (NEGATIVE); KETONES,URINE TRACE mg/dL (NEGATIVE); LEUKOCYTE ESTERASE,URINE NEGATIVE (NEGATIVE); NITRITE,URINE NEGATIVE (NEGATIVE); OCCULT BLOOD,URINE NEGATIVE (NEGATIVE); PROTEIN,URINE NEGATIVE (NEGATIVE); UROBILINOGEN,URINE 0.2 EU/dL (<2.0)
[2024-06-04 11:01] LABS: APPEARANCE,URINE HAZY
[2024-06-04 11:08] LABS: BACTERIA,URINE FEW (NEGATIVE); EPITHELIAL CELLS,URINE FEW (NONE-FEW); MUCUS,URINE LIGHT (NONE-MOD); RBC,URINE 0-2 (0-2/HPF); WBC,URINE 0-3 (0-5/HPF)
[2024-06-04 11:10] LABS: AMPHETAMINES SCREEN, URINE NEGATIVE (CUTOFF=500); BARBITURATE SCREEN,URINE NEGATIVE (CUTOFF=200); BENZODIAZEPINES SCREEN,URINE PRESUMPTIVE POSITIVE (CUTOFF=150); BUPRENORPHINE SCREEN,URINE NEGATIVE (CUTOFF=10); METHADONE SCREEN, URINE NEGATIVE (CUTOFF=200); METHAMPHETAMINES SCREEN, URINE NEGATIVE (CUTOFF=500); OXYCODONE SCREEN,URINE NEGATIVE (CUT0FF=100); PCP SCREEN,URINE NEGATIVE (CUTOFF=25); THC SCREEN,URINE 20 NG/ML NEGATIVE (CUTOFF=50)
[2024-06-04 11:16] LABS: A/G RATIO 1.2 (0.9-1.6); ACETAMINOPHEN <2.0 ug/mL; ALANINE AMINOTRANSFERASE,ALT 17 IU/L (14-63); ALBUMIN 4.1 g/dL (3.4-5.0); ALKALINE PHOSPHATASE 81 U/L (46-116); ASPARTATE AMNIOTRANSFERASE,AST 12 IU/L (15-37); BILIRUBIN TOTAL 0.8 mg/dL (0.2-1.0); BLOOD UREA NITROGEN,BUN 8 mg/dL (7.0-18.0); CALCIUM 10.1 mg/dL (8.5-10.1); CARBON DIOXIDE,CO2 29.4 mmol/L (21.0-32.0); CHLORIDE,CL 104 mmol/L (98-107); CREATININE 1.1 mg/dL (0.6-1.0); EST CRCL DRUG DOSING (CG) 39.79 mL/min; GLUCOSE RANDOM 95 mg/dL (74-106); MAGNESIUM 1.8 mg/dL (1.8-2.4); POTASSIUM,K 4.1 mmol/L (3.5-5.1); PROTEIN TOTAL,TP 7.5 g/dL (6.4-8.2); SALICYLATE 1.1 mg/dL (0.0-20.0); SODIUM,NA 140 mmol/L (136-145); TSH ULTRASENSITIVE 1.66 uIU/mL (0.36-3.74)
[2024-06-04 11:19] LABS: ESTIMATED GFR 55 mL/min (>60); ETHANOL BLOOD MEDICAL < 3.0 mg/dL
[2024-06-04] MEDS: Sodium Chloride 0.9% 1,000 ML IV ONE (11:37)
[2024-06-04] MEDS: Ondansetron 4 MG/2 ML SDV IVPUSH ONE (13:36)
== END 2024-06-04 13:36 | disposition left against medical advice (07) ==
LOC: MW.ED 09:38
DX: T56.891A Toxic effect of other metals, accidental (unintentional), initial encounter (principal); E66.9 Obesity, unspecified; E11.9 Type 2 diabetes mellitus without complications; Z88.8 Allergy status to other drugs, medicaments and biological substances; Z79.899 Other long term (current) drug therapy; Z90.710 Acquired absence of both cervix and uterus; Z68.35 Body mass index [BMI] 35.0-35.9, adult; Z75.8 Other problems related to medical facilities and other health care
CPT/HCPCS: 36415; 80053; 80143; 80178; 80179; 80305; 80307; 81001; 83735; 84443; 85025; 93005; 96360; 99283; J7030; 93010; 99284

== ENCOUNTER 2025-01-11 16:02 | Emergency (ER) | payer MEDICARE | END 2025-01-11 18:34 | disposition left against medical advice (07) | LOC: MW.ED 16:02 | DX: R45.89 Other symptoms and signs involving emotional state (principal); E78.00 Pure hypercholesterolemia, unspecified; E66.9 Obesity, unspecified; E11.9 Type 2 diabetes mellitus without complications; Z91.048 Other nonmedicinal substance allergy status; Z75.8 Other problems related to medical facilities and other health care; Z79.899 Other long term (current) drug therapy; Z90.710 Acquired absence of both cervix and uterus; Z68.32 Body mass index [BMI] 32.0-32.9, adult | CPT/HCPCS: 99282; 99284 ==

== ENCOUNTER 2025-01-18 05:19 | Emergency (ER) | payer MEDICARE ==
[2025-01-18 06:21] LABS: BASOPHILS ABSOLUTE AUTO 0.04 K/uL (0.00-0.20); BASOPHILS PERCENT AUTO 0.7 % (0.0-1.0); EOSINOPHILS ABSOLUTE AUTO 0.18 K/uL (0.00-0.45); EOSINOPHILS PERCENT AUTO 3.1 % (0.0-6.0); HEMOGLOBIN 13.8 g/dL (12.0-16.0); LYMPHOCYTES ABSOLUTE AUTO 2.01 K/uL (1.00-4.80); LYMPHOCYTES PERCENT AUTO 34.1 % (24.0-44.0); MEAN CORPUSCULAR HEMOGLOBIN 30.5 pg (28.0-32.0); MEAN CORPUSCULAR HGB CONC 34.5 g/dL (32.0-36.0); MEAN CORPUSCULAR VOLUME 88.5 fL (83.0-99.0); MEAN PLATELET VOLUME 9.8 fL (9.4-12.3); MONOCYTES ABSOLUTE AUTO 0.55 K/uL (0.00-0.80); MONOCYTES PERCENT AUTO 9.3 % (0.0-8.0); NEUTROPHILS ABSOLUTE AUTO 3.11 K/uL (1.80-7.70); NEUTROPHILS PERCENT AUTO 52.8 % (41.0-71.0); PLATELET COUNT,PLT 203 K/uL (150-400); RED BLOOD CELL COUNT 4.52 M/uL (4.10-5.30); WHITE BLOOD CELL COUNT,WBC 5.89 K/uL (3.9-11.3)
[2025-01-18 06:28] LABS: APPEARANCE,URINE CLEAR; BILIRUBIN,URINE NEGATIVE (NEGATIVE); COLOR,URINE YELLOW; GLUCOSE,URINE NEGATIVE (NEGATIVE); KETONES,URINE TRACE mg/dL (NEGATIVE); LEUKOCYTE ESTERASE,URINE NEGATIVE (NEGATIVE); NITRITE,URINE NEGATIVE (NEGATIVE); OCCULT BLOOD,URINE NEGATIVE (NEGATIVE); PH,URINE 5.5 (5.0-8.0); PROTEIN,URINE NEGATIVE (NEGATIVE); UROBILINOGEN,URINE 0.2 EU/dL (<2.0)
[2025-01-18 06:40] LABS: AMPHETAMINES SCREEN, URINE NEGATIVE (CUTOFF=500); BARBITURATE SCREEN,URINE NEGATIVE (CUTOFF=200); BENZODIAZEPINES SCREEN,URINE PRESUMPTIVE POSITIVE (CUTOFF=150); BUPRENORPHINE SCREEN,URINE NEGATIVE (CUTOFF=10); METHADONE SCREEN, URINE NEGATIVE (CUTOFF=200); METHAMPHETAMINES SCREEN, URINE NEGATIVE (CUTOFF=500); OXYCODONE SCREEN,URINE NEGATIVE (CUT0FF=100); PCP SCREEN,URINE NEGATIVE (CUTOFF=25); THC SCREEN,URINE 20 NG/ML PRESUMPTIVE POSITIVE (CUTOFF=50)
[2025-01-18 07:08] LABS: A/G RATIO 1.2 (0.9-1.6); ACETAMINOPHEN <2.0 ug/mL; ALANINE AMINOTRANSFERASE,ALT 20 IU/L (14-63); ALBUMIN 3.7 g/dL (3.4-5.0); ALKALINE PHOSPHATASE 91 U/L (46-116); ASPARTATE AMNIOTRANSFERASE,AST 22 IU/L (15-37); BILIRUBIN TOTAL 0.4 mg/dL (0.2-1.0); BLOOD UREA NITROGEN,BUN 14 mg/dL (7.0-18.0); CALCIUM 8.9 mg/dL (8.5-10.1); CARBON DIOXIDE,CO2 23.4 mmol/L (21.0-32.0); CHLORIDE,CL 108 mmol/L (98-107); CREATININE 0.9 mg/dL (0.6-1.0); EST CRCL DRUG DOSING (CG) 48.63 mL/min; ESTIMATED GFR 71 mL/min (>60); ETHANOL BLOOD MEDICAL < 3.0 mg/dL; GLUCOSE RANDOM 107 mg/dL (74-106); POTASSIUM,K 4.3 mmol/L (3.5-5.1); PROTEIN TOTAL,TP 6.8 g/dL (6.4-8.2); SODIUM,NA 143 mmol/L (136-145); TSH ULTRASENSITIVE 0.71 uIU/mL (0.36-3.74)
[2025-01-18] MEDS: LORazepam 0.5 MG Tab PO ONE (12:13)
== END 2025-01-18 15:25 | disposition left against medical advice (07) ==
LOC: MW.ED 05:19
DX: F31.10 Bipolar disorder, current episode manic without psychotic features, unspecified (principal); E78.00 Pure hypercholesterolemia, unspecified; E11.9 Type 2 diabetes mellitus without complications; Z91.048 Other nonmedicinal substance allergy status; Z79.899 Other long term (current) drug therapy; Z79.84 Long term (current) use of oral hypoglycemic drugs
CPT/HCPCS: 36415; 80048; 80076; 80143; 80179; 80305; 80307; 81003; 84443; 85025; 87428; 93005; 99285; A9270; 93010; 99284

== ENCOUNTER 2025-01-20 12:15 | Emergency (ER) | payer MEDICARE ==
[2025-01-20] MEDS ORDERED: Sodium Chloride 0.9% 20 ML SDV IV PRN (12:19)
[2025-01-20 13:06] LABS: BASOPHILS ABSOLUTE AUTO 0.03 K/uL (0.00-0.20); BASOPHILS PERCENT AUTO 0.7 % (0.0-1.0); EOSINOPHILS ABSOLUTE AUTO 0.09 K/uL (0.00-0.45); EOSINOPHILS PERCENT AUTO 2.1 % (0.0-6.0); HEMATOCRIT 38.4 % (37.0-47.0); IMMATURE GRAN ABSOLUTE AUTO 0.01 K/uL (0.00-0.05); IMMATURE GRAN PERCENT AUTO 0.2 % (0.0-0.4); LYMPHOCYTES ABSOLUTE AUTO 1.58 K/uL (1.00-4.80); LYMPHOCYTES PERCENT AUTO 36.4 % (24.0-44.0); MEAN CORPUSCULAR HEMOGLOBIN 30.7 pg (28.0-32.0); MEAN CORPUSCULAR HGB CONC 33.9 g/dL (32.0-36.0); MEAN CORPUSCULAR VOLUME 90.6 fL (83.0-99.0); MEAN PLATELET VOLUME 9.7 fL (9.4-12.3); MONOCYTES ABSOLUTE AUTO 0.51 K/uL (0.00-0.80); MONOCYTES PERCENT AUTO 11.8 % (0.0-8.0); NEUTROPHILS ABSOLUTE AUTO 2.12 K/uL (1.80-7.70); NEUTROPHILS PERCENT AUTO 48.8 % (41.0-71.0); PLATELET COUNT,PLT 179 K/uL (150-400); RED BLOOD CELL COUNT 4.24 M/uL (4.10-5.30); WHITE BLOOD CELL COUNT,WBC 4.34 K/uL (3.9-11.3)
[2025-01-20 13:22] LABS: INR 0.95 (0.86-1.11); PTT,PARTIAL THROMBOPLSTIN TIME 25.9 SEC (23.9-30.7)
[2025-01-20 13:35] LABS: A/G RATIO 1.1 (0.9-1.6); ALBUMIN 3.2 g/dL (3.4-5.0); BILIRUBIN TOTAL 0.5 mg/dL (0.2-1.0); CALCIUM 8.8 mg/dL (8.5-10.1); CARBON DIOXIDE,CO2 27.2 mmol/L (21.0-32.0); CREATININE 0.9 mg/dL (0.6-1.0); EST CRCL DRUG DOSING (CG) 57.56 mL/min; MAGNESIUM 1.8 mg/dL (1.8-2.4); POTASSIUM,K 4.3 mmol/L (3.5-5.1)
[2025-01-20 13:39] LABS: LACTIC ACID 1.4 mmol/L (0.4-2.0)
[2025-01-20 14:00] LABS: APPEARANCE,URINE CLEAR; BILIRUBIN,URINE NEGATIVE (NEGATIVE); COLOR,URINE YELLOW; GLUCOSE,URINE NEGATIVE (NEGATIVE); KETONES,URINE NEGATIVE (NEGATIVE); LEUKOCYTE ESTERASE,URINE NEGATIVE (NEGATIVE); NITRITE,URINE NEGATIVE (NEGATIVE); OCCULT BLOOD,URINE NEGATIVE (NEGATIVE); PH,URINE 6.5 (5.0-8.0); PROTEIN,URINE NEGATIVE (NEGATIVE); UROBILINOGEN,URINE 0.2 EU/dL (<2.0)
[2025-01-20 14:09] LABS: AMPHETAMINES SCREEN, URINE NEGATIVE (CUTOFF=500); BARBITURATE SCREEN,URINE NEGATIVE (CUTOFF=200); BENZODIAZEPINES SCREEN,URINE PRESUMPTIVE POSITIVE (CUTOFF=150); BUPRENORPHINE SCREEN,URINE NEGATIVE (CUTOFF=10); METHADONE SCREEN, URINE NEGATIVE (CUTOFF=200); METHAMPHETAMINES SCREEN, URINE NEGATIVE (CUTOFF=500); OXYCODONE SCREEN,URINE NEGATIVE (CUT0FF=100); PCP SCREEN,URINE NEGATIVE (CUTOFF=25); THC SCREEN,URINE 20 NG/ML PRESUMPTIVE POSITIVE (CUTOFF=50)
[2025-01-20 14:33] LABS: ACETAMINOPHEN <2.0 ug/mL
[2025-01-20] MEDS: Sodium Chloride 0.9% 500 ML IV SCH (16:32)
[2025-01-20] MEDS: Sodium Chloride 0.9% 2.5 ML Syringe FLUSH PRN (16:33)
[2025-01-20] MEDS: Sodium Chloride 0.9% 10 ML Syringe FLUSH PRN (16:33)
== END 2025-01-20 19:45 ==
LOC: MW.ED 12:15
DX: T42.4X2A Poisoning by benzodiazepines, intentional self-harm, initial encounter (principal); E11.9 Type 2 diabetes mellitus without complications; E66.9 Obesity, unspecified; E78.00 Pure hypercholesterolemia, unspecified; Z91.048 Other nonmedicinal substance allergy status; Z79.899 Other long term (current) drug therapy; Z90.710 Acquired absence of both cervix and uterus; Z68.30 Body mass index [BMI] 30.0-30.9, adult
CPT/HCPCS: 36415; 80053; 80143; 80179; 80305; 81003; 82550; 83605; 83735; 85025; 85610; 85730; 87428; 93005; 99285; J7040; 99284

== ENCOUNTER 2025-04-13 17:23 | Emergency (ER) | payer MEDICARE ==
[2025-04-13] MEDS ORDERED: Sodium Chloride 0.9% 10 ML Syringe FLUSH PRN (17:25)
[2025-04-13] MEDS ORDERED: Sodium Chloride 0.9% 2.5 ML Syringe FLUSH PRN (17:25)
[2025-04-13 19:10] LABS: BASOPHILS ABSOLUTE AUTO 0.03 K/uL (0.00-0.20); BASOPHILS PERCENT AUTO 0.4 % (0.0-1.0); EOSINOPHILS ABSOLUTE AUTO 0.14 K/uL (0.00-0.45); IMMATURE GRAN ABSOLUTE AUTO 0.01 K/uL (0.00-0.05); IMMATURE GRAN PERCENT AUTO 0.1 % (0.0-0.4); LYMPHOCYTES ABSOLUTE AUTO 2.61 K/uL (1.00-4.80); LYMPHOCYTES PERCENT AUTO 37.1 % (24.0-44.0); MEAN CORPUSCULAR HEMOGLOBIN 30.4 pg (28.0-32.0); MEAN CORPUSCULAR VOLUME 86.8 fL (83.0-99.0); MEAN PLATELET VOLUME 9.4 fL (9.4-12.3); MONOCYTES ABSOLUTE AUTO 0.56 K/uL (0.00-0.80); NEUTROPHILS ABSOLUTE AUTO 3.68 K/uL (1.80-7.70); NEUTROPHILS PERCENT AUTO 52.4 % (41.0-71.0); PLATELET COUNT,PLT 206 K/uL (150-400); RED BLOOD CELL COUNT 4.61 M/uL (4.10-5.30); WHITE BLOOD CELL COUNT,WBC 7.03 K/uL (3.9-11.3)
[2025-04-13 19:38] LABS: A/G RATIO 1.6 (0.9-1.6); ALBUMIN 4.4 g/dL (3.4-5.0); BILIRUBIN TOTAL 0.5 mg/dL (0.2-1.0); CALCIUM 9.9 mg/dL (8.5-10.1); CARBON DIOXIDE,CO2 27.5 mmol/L (21.0-32.0); EST CRCL DRUG DOSING (CG) 43.18 mL/min; MAGNESIUM 1.7 mg/dL (1.8-2.4); PROTEIN TOTAL,TP 7.2 g/dL (6.4-8.2)
== END 2025-04-13 20:51 | disposition home or self-care (01) ==
LOC: MW.ED 17:23
DX: R06.02 Shortness of breath (principal); E78.00 Pure hypercholesterolemia, unspecified; E11.9 Type 2 diabetes mellitus without complications; Z91.048 Other nonmedicinal substance allergy status; Z79.84 Long term (current) use of oral hypoglycemic drugs; Z79.02 Long term (current) use of antithrombotics/antiplatelets; Z79.899 Other long term (current) drug therapy
CPT/HCPCS: 36415; 80053; 83690; 83735; 84484; 85025; 93005; 93010; 99284; 99285

== ENCOUNTER 2025-05-01 13:30 | Emergency (ER) | payer MEDICARE ==
[2025-05-01] MEDS ORDERED: Sodium Chloride 0.9% 10 ML Syringe FLUSH PRN (13:34)
[2025-05-01] MEDS ORDERED: Sodium Chloride 0.9% 2.5 ML Syringe FLUSH PRN (13:34)
[2025-05-01 14:06] LABS: BASOPHILS ABSOLUTE AUTO 0.04 K/uL (0.00-0.20); BASOPHILS PERCENT AUTO 0.5 % (0.0-1.0); EOSINOPHILS ABSOLUTE AUTO 0.10 K/uL (0.00-0.45); EOSINOPHILS PERCENT AUTO 1.2 % (0.0-6.0); IMMATURE GRAN ABSOLUTE AUTO 0.02 K/uL (0.00-0.05); IMMATURE GRAN PERCENT AUTO 0.2 % (0.0-0.4); LYMPHOCYTES ABSOLUTE AUTO 2.88 K/uL (1.00-4.80); LYMPHOCYTES PERCENT AUTO 34.0 % (24.0-44.0); MEAN PLATELET VOLUME 9.7 fL (9.4-12.3); MONOCYTES ABSOLUTE AUTO 0.61 K/uL (0.00-0.80); MONOCYTES PERCENT AUTO 7.2 % (0.0-8.0); NEUTROPHILS ABSOLUTE AUTO 4.83 K/uL (1.80-7.70); NEUTROPHILS PERCENT AUTO 56.9 % (41.0-71.0); NRBC ABSOLUTE 0.00 K/uL (0.00-0.02); NRBC PERCENT 0.0 /100WBC (0.0-0.2); PLATELET COUNT,PLT 236 K/uL (150-400); RED BLOOD CELL COUNT 4.35 M/uL (4.10-5.30); WHITE BLOOD CELL COUNT,WBC 8.48 K/uL (3.9-11.3)
[2025-05-01 14:20] LABS: A/G RATIO 1.3 (0.9-1.6); ALANINE AMINOTRANSFERASE,ALT 24.0 IU/L (14-63); ASPARTATE AMNIOTRANSFERASE,AST 21.0 IU/L (15-37); BILIRUBIN TOTAL 0.6 mg/dL (0.2-1.0); BLOOD UREA NITROGEN,BUN 13.0 mg/dL (7.0-18.0); CARBON DIOXIDE,CO2 23.9 mmol/L (21.0-32.0); CHLORIDE,CL 106.0 mmol/L (98-107); CREATININE 1.0 mg/dL (0.6-1.0); EST CRCL DRUG DOSING (CG) 51.1 mL/min; GLUCOSE RANDOM 92.0 mg/dL (74-106); POTASSIUM,K 4.5 mmol/L (3.5-5.1); PROTEIN TOTAL,TP 6.8 g/dL (6.4-8.2); SODIUM,NA 141.0 mmol/L (136-145)
[2025-05-01 14:23] LABS: ESTIMATED GFR 62.0 mL/min (>60)
[2025-05-01 14:25] LABS: INR 0.97 (0.86-1.11)
[2025-05-01 14:26] LABS: PTT,PARTIAL THROMBOPLSTIN TIME < 20.0 SEC (23.9-30.7)
== END 2025-05-01 17:00 | disposition home or self-care (01) ==
LOC: MW.ED 13:30
DX: R07.9 Chest pain, unspecified (principal); E78.00 Pure hypercholesterolemia, unspecified; E11.9 Type 2 diabetes mellitus without complications; Z75.3 Unavailability and inaccessibility of health-care facilities; Z91.048 Other nonmedicinal substance allergy status; Z79.899 Other long term (current) drug therapy; Z79.02 Long term (current) use of antithrombotics/antiplatelets; Z79.84 Long term (current) use of oral hypoglycemic drugs
CPT/HCPCS: 36415; 71046; 80053; 83690; 83735; 84484; 85025; 85610; 85730; 93005; 96360; 99285; A9270; J7030; 93010; 99284

== ENCOUNTER 2025-06-17 13:53 | Emergency (ER) | payer MEDICARE ==
[2025-06-17 14:17] LABS: BASOPHILS ABSOLUTE AUTO 0.04 K/uL (0.00-0.20); BASOPHILS PERCENT AUTO 0.6 % (0.0-1.0); EOSINOPHILS ABSOLUTE AUTO 0.24 K/uL (0.00-0.45); EOSINOPHILS PERCENT AUTO 3.5 % (0.0-6.0); IMMATURE GRAN ABSOLUTE AUTO 0.01 K/uL (0.00-0.05); IMMATURE GRAN PERCENT AUTO 0.1 % (0.0-0.4); LYMPHOCYTES ABSOLUTE AUTO 2.03 K/uL (1.00-4.80); LYMPHOCYTES PERCENT AUTO 29.5 % (24.0-44.0); MEAN PLATELET VOLUME 9.3 fL (9.4-12.3); MONOCYTES ABSOLUTE AUTO 0.67 K/uL (0.00-0.80); MONOCYTES PERCENT AUTO 9.8 % (0.0-8.0); NEUTROPHILS ABSOLUTE AUTO 3.88 K/uL (1.80-7.70); NEUTROPHILS PERCENT AUTO 56.5 % (41.0-71.0); NRBC ABSOLUTE 0.00 K/uL (0.00-0.02); NRBC PERCENT 0.0 /100WBC (0.0-0.2); PLATELET COUNT,PLT 196 K/uL (150-400); RED BLOOD CELL COUNT 4.08 M/uL (4.10-5.30); WHITE BLOOD CELL COUNT,WBC 6.87 K/uL (3.9-11.3)
[2025-06-17 14:42] LABS: A/G RATIO 1.1 (0.9-1.6); ALANINE AMINOTRANSFERASE,ALT 41.0 IU/L (14-63); ASPARTATE AMNIOTRANSFERASE,AST 28.0 IU/L (15-37); BILIRUBIN TOTAL 0.3 mg/dL (0.2-1.0); BLOOD UREA NITROGEN,BUN 20.0 mg/dL (7.0-18.0); CARBON DIOXIDE,CO2 27.1 mmol/L (21.0-32.0); CHLORIDE,CL 108.0 mmol/L (98-107); CREATININE 1.2 mg/dL (0.6-1.0); EST CRCL DRUG DOSING (CG) 35.98 mL/min; GLUCOSE RANDOM 93.0 mg/dL (74-106); POTASSIUM,K 4.3 mmol/L (3.5-5.1); PROTEIN TOTAL,TP 6.6 g/dL (6.4-8.2); SODIUM,NA 142.0 mmol/L (136-145)
[2025-06-17 14:50] LABS: ESTIMATED GFR 50.0 mL/min (>60)
== END 2025-06-17 15:26 | disposition home or self-care (01) ==
LOC: MW.ED 13:53
DX: F41.0 Panic disorder [episodic paroxysmal anxiety] (principal); R07.9 Chest pain, unspecified; E11.9 Type 2 diabetes mellitus without complications; E66.9 Obesity, unspecified; E78.00 Pure hypercholesterolemia, unspecified; Z79.899 Other long term (current) drug therapy; Z79.82 Long term (current) use of aspirin; Z90.710 Acquired absence of both cervix and uterus; Z68.34 Body mass index [BMI] 34.0-34.9, adult
CPT/HCPCS: 36415; 71045; 80053; 84484; 85025; 93005; 99285; A9270; 93010; 99283

== ENCOUNTER 2025-07-01 21:41 | Emergency (ER) | payer MEDICARE ==
[2025-07-01] MEDS ORDERED: Sodium Chloride 0.9% 2.5 ML Syringe FLUSH PRN (21:45)
[2025-07-01] MEDS ORDERED: Sodium Chloride 0.9% 10 ML Syringe FLUSH PRN (21:45)
[2025-07-01 21:51] LABS: BASOPHILS ABSOLUTE AUTO 0.05 K/uL (0.00-0.20); BASOPHILS PERCENT AUTO 0.9 % (0.0-1.0); EOSINOPHILS ABSOLUTE AUTO 0.22 K/uL (0.00-0.45); EOSINOPHILS PERCENT AUTO 3.8 % (0.0-6.0); IMMATURE GRAN ABSOLUTE AUTO 0.01 K/uL (0.00-0.05); IMMATURE GRAN PERCENT AUTO 0.2 % (0.0-0.4); LYMPHOCYTES ABSOLUTE AUTO 2.21 K/uL (1.00-4.80); LYMPHOCYTES PERCENT AUTO 38.1 % (24.0-44.0); MEAN PLATELET VOLUME 9.2 fL (9.4-12.3); MONOCYTES ABSOLUTE AUTO 0.59 K/uL (0.00-0.80); MONOCYTES PERCENT AUTO 10.2 % (0.0-8.0); NEUTROPHILS ABSOLUTE AUTO 2.72 K/uL (1.80-7.70); NEUTROPHILS PERCENT AUTO 46.8 % (41.0-71.0); NRBC ABSOLUTE 0.00 K/uL (0.00-0.02); NRBC PERCENT 0.0 /100WBC (0.0-0.2); PLATELET COUNT,PLT 192 K/uL (150-400); RED BLOOD CELL COUNT 4.14 M/uL (4.10-5.30); WHITE BLOOD CELL COUNT,WBC 5.80 K/uL (3.9-11.3)
[2025-07-01 22:29] LABS: A/G RATIO 1.1 (0.9-1.6); ALANINE AMINOTRANSFERASE,ALT 23 IU/L (14-63); ASPARTATE AMNIOTRANSFERASE,AST 23 IU/L (15-37); BILIRUBIN TOTAL 0.2 mg/dL (0.2-1.0); BLOOD UREA NITROGEN,BUN 15 mg/dL (7.0-18.0); CARBON DIOXIDE,CO2 22.0 mmol/L (21.0-32.0); CHLORIDE,CL 105 mmol/L (98-107); CREATININE 1.0 mg/dL (0.6-1.0); EST CRCL DRUG DOSING (CG) 51.10 mL/min; ETHANOL BLOOD MEDICAL 13 mg/dL; GLUCOSE RANDOM 147 mg/dL (74-106); POTASSIUM,K 3.9 mmol/L (3.5-5.1); PROTEIN TOTAL,TP 6.4 g/dL (6.4-8.2); SODIUM,NA 138 mmol/L (136-145); T3 FREE 1.92 pg/mL (2.18-3.98); T4 FREE 0.77 ng/dL (0.76-1.46); TSH ULTRASENSITIVE 1.85 uIU/mL (0.36-3.74)
[2025-07-01 22:37] LABS: ESTIMATED GFR 62 mL/min (>60)
[2025-07-01 23:03] LABS: APPEARANCE,URINE CLEAR; GLUCOSE,URINE NEGATIVE (NEGATIVE); OCCULT BLOOD,URINE NEGATIVE (NEGATIVE)
[2025-07-01 23:12] LABS: AMPHETAMINES SCREEN, URINE NEGATIVE (CUTOFF=500); BUPRENORPHINE SCREEN,URINE NEGATIVE (CUTOFF=10); METHADONE SCREEN, URINE NEGATIVE (CUTOFF=200); METHAMPHETAMINES SCREEN, URINE NEGATIVE (CUTOFF=500); OXYCODONE SCREEN,URINE NEGATIVE (CUT0FF=100); PCP SCREEN,URINE NEGATIVE (CUTOFF=25); THC SCREEN,URINE 20 NG/ML NEGATIVE (CUTOFF=50)
[2025-07-01] MEDS: Activated Charcoal/Water Susp 50 GM/240 ML Tube PO ONE (23:18)
[2025-07-01] MEDS: Magnesium Sulfate 2 GM/50 mL 2 GM in Premix Bag 1 BAG IV ONE (23:51)
[2025-07-02 03:39] LABS: BASOPHILS ABSOLUTE AUTO 0.03 K/uL (0.00-0.20); BASOPHILS PERCENT AUTO 0.6 % (0.0-1.0); EOSINOPHILS ABSOLUTE AUTO 0.19 K/uL (0.00-0.45); EOSINOPHILS PERCENT AUTO 3.9 % (0.0-6.0); IMMATURE GRAN ABSOLUTE AUTO 0.00 K/uL (0.00-0.05); IMMATURE GRAN PERCENT AUTO 0.0 % (0.0-0.4); LYMPHOCYTES ABSOLUTE AUTO 2.07 K/uL (1.00-4.80); LYMPHOCYTES PERCENT AUTO 42.5 % (24.0-44.0); MEAN PLATELET VOLUME 9.2 fL (9.4-12.3); MONOCYTES ABSOLUTE AUTO 0.51 K/uL (0.00-0.80); MONOCYTES PERCENT AUTO 10.5 % (0.0-8.0); NEUTROPHILS ABSOLUTE AUTO 2.07 K/uL (1.80-7.70); NEUTROPHILS PERCENT AUTO 42.5 % (41.0-71.0); NRBC ABSOLUTE 0.00 K/uL (0.00-0.02); NRBC PERCENT 0.0 /100WBC (0.0-0.2); PLATELET COUNT,PLT 170 K/uL (150-400); RED BLOOD CELL COUNT 4.09 M/uL (4.10-5.30); WHITE BLOOD CELL COUNT,WBC 4.87 K/uL (3.9-11.3)
[2025-07-02 03:56] LABS: INR 0.96 (0.86-1.11); PTT,PARTIAL THROMBOPLSTIN TIME 24.2 SEC (23.9-30.7)
[2025-07-02 04:05] LABS: A/G RATIO 1.1 (0.9-1.6); ALANINE AMINOTRANSFERASE,ALT 31.0 IU/L (14-63); ASPARTATE AMNIOTRANSFERASE,AST 21.0 IU/L (15-37); BILIRUBIN TOTAL 0.3 mg/dL (0.2-1.0); BLOOD UREA NITROGEN,BUN 14.0 mg/dL (7.0-18.0); CARBON DIOXIDE,CO2 27.7 mmol/L (21.0-32.0); CHLORIDE,CL 107.0 mmol/L (98-107); CREATININE 0.9 mg/dL (0.6-1.0); EST CRCL DRUG DOSING (CG) 56.78 mL/min; GLUCOSE RANDOM 94.0 mg/dL (74-106); POTASSIUM,K 4.4 mmol/L (3.5-5.1); PROTEIN TOTAL,TP 6.0 g/dL (6.4-8.2); SODIUM,NA 144.0 mmol/L (136-145)
[2025-07-02 04:08] LABS: ESTIMATED GFR 70.0 mL/min (>60)
== END 2025-07-02 17:39 ==
LOC: MW.ED 21:41
DX: T43.592A Poisoning by other antipsychotics and neuroleptics, intentional self-harm, initial encounter (principal); Z88.5 Allergy status to narcotic agent; Z79.84 Long term (current) use of oral hypoglycemic drugs
CPT/HCPCS: 36415; 70450; 71045; 72125; 80053; 80143; 80179; 80305; 80307; 81003; 83735; 84439; 84443; 84481; 85025; 85610; 85730; 93005; 96361; 96365; 99285; J3475; J7040; 99284; A9270-GY

== ENCOUNTER 2025-07-09 20:24 | Emergency (ER) | payer MEDICARE | END 2025-07-09 22:07 | LOC: MW.ED 20:24 | DX: F31.9 Bipolar disorder, unspecified (principal); Z88.8 Allergy status to other drugs, medicaments and biological substances; Z79.899 Other long term (current) drug therapy; Z79.84 Long term (current) use of oral hypoglycemic drugs; E11.9 Type 2 diabetes mellitus without complications; E66.9 Obesity, unspecified; Z90.710 Acquired absence of both cervix and uterus | CPT/HCPCS: 96372; 99284; J1630 ==